=== PATIENT | male | born 1940 | race Hispanic/Latino ===

== ENCOUNTER 2017-11-06 09:07 | Inpatient (IN) | payer MEDICARE ==
[2017-11-06] MEDS ORDERED: Nitroglycerin 2% Ointment 1 INCH/1 GM Packet ONE (09:38)
--- NOTE | 2017-11-06 09:45 | RAD ---
RADIOGRAPH CHEST 1 VIEW: HISTORY: 77-year-old male with acute chest pain. FINDINGS: There is hyperinflation of the lungs, consistent with COPD. There is no evidence of air space densit y, pneumothorax, or pulmonary edema. The lateral costophrenic angles are sharp. There are sternotomy wires. There is no interval change compared to 12-27-15. IMPRESSION: 1) No acute pulmonary findings. 2) Emphysema. katina POS: [facility]
[2017-11-06 09:47] LABS: #Eosinphils 0.1 thou/uL (0.0-0.7); #Lymphocytes 1.5 thou/uL (1.20-3.40); #Monocytes 0.5 thou/uL (0.11-0.59); #Neutrophils 5.5 thou/uL (1.40-6.50); %Basophils 0.6 % (0.0-1.0); %Eosinophils 1.8 % (0.0-10.0); %Lymphocytes 19.8 % (21.0-51.0); %Monocytes 6.7 % (0.0-10.0); Hematocrit 39.3 % (42.0-52.0); Mean Platelet Volume 7.7 fL (7.4-10.4); Red Blood Cell (RBC) Count 4.27 mill/uL (4.70-6.10); White Blood Cell (WBC) Count 7.7 thou/uL (4.8-10.8)
[2017-11-06 10:07] LABS: ALT (SGPT) 11 U/L (8-55); AST (SGOT) 10 U/L (5-34); Alkaline Phosphatase 109 U/L (40-150); Anion Gap 13 mmol/L (10-20); BUN (Urea Nitrogen) 18 mg/dL (8.4-25.7); Bilirubin, Total 0.4 mg/dL (0.2-1.2); CK (CPK) 34 U/L (30-200); Calc. Creatinine Clearance 0 mL/min (70-130); Calcium 9.2 mg/dL (7.8-10.44); Carbon Dioxide 27 mmol/L (23-31); Chloride 103 mmol/L (98-107); Estimated GFR-MDRD 58; Globulin 3.4 g/dL (2.4-3.5); Protein, Total 7.1 g/dL (5.8-8.1)
[2017-11-06 10:10] LABS: Troponin I Less than 0.010 ng/mL (< 0.028)
[2017-11-06 12:47] VITALS: BMI 37.1
[2017-11-06] MEDS ORDERED: Communication Order-Pharmacy FS SCH (13:15)
[2017-11-06] MEDS ORDERED: Calcium Carbonate 500 MG ChewTAB PO PRN (13:39)
[2017-11-06] MEDS ORDERED: HumaLOG 300 UNITS/3 ML VIAL SC PRN (13:39)
[2017-11-06] MEDS ORDERED: Dextrose 5% in Water 1,000 ML IV PRN (13:39)
[2017-11-06] MEDS ORDERED: Ondansetron HCl/PF 4 MG/2 ML Vial IVP PRN (13:39)
[2017-11-06] MEDS ORDERED: Dextrose 50% Abboject 50 ML SYRINGE SLOW IVP PRN (13:39)
[2017-11-06] MEDS ORDERED: Nitroglycerin 0.4 MG TAB (25 Tab Bottle) PO PRN (13:39)
--- NOTE | 2017-11-06 14:05 | CON ---
DATE OF CONSULTATION: 11/06/2017 HISTORY OF PRESENT ILLNESS: The patient is a 77-year-old gentleman who presents for evaluation of recurrent chest discomfort. The patient has a long history of coronary artery disease. In 2016 , he underwent coronary bypass graft surgery x4. The patient has had recurrent chest discomfort. He underwent a followup catheterization in 2009 which revealed patent coronary bypass grafts. He continued to have chest discomfort. He recently underwent a stress test that revealed no evidence of ischemia. The patient presented to my office with recurrent chest pain. He states he took two nitroglycerin tablets with relief of his pain. PAST MEDICAL HISTORY: 1. Coronary artery disease. 2. Hypertension. 3. Hyperlipidemia. 4. Cerebrovascular disease. 5. GE reflux. PAST SURGICAL HISTORY: Abdominal surgery, back surgery, coronary bypass graft surgery. SOCIAL HISTORY: Nonsmoker. FAMILY HISTORY: There is no strong family history of heart disease. ALLERGIES: PENICILLIN. MEDICATIONS: Valsartan one tablet p.o. daily, Imdur 30 q.a.m., Coreg 12.5 b.i.d., aspirin 81 daily, and Lipitor 10 at bedtime. REVIEW OF SYSTEMS: Ten-point system otherwise unremarkable. No history of easy bruising or bleeding, bright red blood per rectum. PHYSICAL EXAMINATION: GENERAL: Obese gentleman in no acute distress. VITAL SIGNS: Blood pressure was 138/71, heart rate was 73. NECK: No jugular venous distention, no carotid bruits. LUNGS: Clear to auscultation. HEART: Regular rate and rhythm, normal S1, S2. ABDOMEN: Nondistended. EXTREMITIES: Showed trace edema. SKIN: Warm and dry. NEUROLOGIC: Nonfocal. VASCULAR: Radial pulses 2+. LABORATORY DATA: Sodium 139, potassium 3.9, chloride 103, bicarbonate 27, BUN 18, creatinine 1.2, troponin less than 0.01. White blood cell count 7.7, hemoglobin 12.8, hematocrit 29.3, platelets 259. EKG revealed normal sinus rhythm, nonspecific ST abnormality. IMPRESSION: 1. Recurrent chest pain. 2. History of coronary bypass surgery. 3. Hypertension. 4. Dyslipidemia. 5. Obesity. This gentleman has had recurrent chest pain. He underwent a recent stress that revealed no ischemia. Because of his persistent symptoms, I recommend a repeat catheterization to evaluate whether he has developed progressive coronary artery disease. The patient understands the risks involved of cardiac catheterization and wishes to proceed. PLAN: Proceed with cardiac catheterization. TAWANDA
--- NOTE | 2017-11-06 14:50 | HP ---
CHIEF COMPLAINT: Chest pain. HISTORY OF PRESENT ILLNESS: This is a 77-year-old pleasant gentleman who was apparently in usual sta te of health, came into the hospital because he has been having worsening of his chest pain. He says that he has had this chest pain on and off for the last couple of weeks. It is retrosternal, pressu re like and usually goes away after he takes sublingual nitro, but at this time he had the chest pain and he followed up with this. He was in Dr. Pfeiffer's office when the chest pain came and he took 2 sublingual nitroglycerin and it then resolved. Dr. Pfeiffer sent him to the emergency room for fur ther evaluation and treatment. Possible plan is going to be a cardiac catheterization. The patient denies any fever or chills. Admits to constipation, no diarrhea or dysuria. No cough or fever. PAST MEDICAL HISTORY: Coronary artery disease, diabetes, hyperlipidemia, hypertension, and depressio n. SOCIAL HISTORY: Does not smoke, drink or do recreational drugs. FAMILY HISTORY: Negative for diabetes and hypertension. PAST SURGICAL HISTORY: CABG, gallbladder surgery, appendectomy and some vague abdominal surgeries, n ot sure what. MEDICATIONS: , losartan, Risperdal, Imdur, metformin. ALLERGIES: PENICILLIN. REVIEW OF SYSTEMS: Significant for some right upper quadrant pain, chest pain, otherwise no fever, n o chills, no headache, no appetite changes. No cough, no diarrhea, dysuria, or polyuria. No memory or mood changes. No neck pain. PHYSICAL EXAMINATION: VITAL SIGNS: Blood pressure is 121/90 with a pulse of 95, afebrile, breathing comfortably on room ai r. GENERAL: The patient is lying in bed in no apparent distress. HEENT: Atraumatic and normocephalic. Pupils equally round, react to light. Extraocular movements i ntact. Mucous membranes moist. NECK: Supple. No JVD. CHEST: Breath sounds heard. There are no rales or rhonchi. HEART: S1, S2, no murmurs or gallops. ABDOMEN: Soft. Some tenderness in the right upper quadrant on pressure, the chest pain is reproduci ble as well. EXTREMITIES: No cyanosis, clubbing or edema. Distal pulses present. NEUROLOGIC: Alert, awake, oriented. No cranial deficits. No sensorimotor deficits. LABORATORY DATA: Potassium is 3.9, creatinine is 1.2, hemoglobin is 12. WBC count is 7. Chest x-ray negative. EKG showed some nonspecific ST-T wave changes. ASSESSMENT AND PLAN: 1. Unstable angina. Follow Cardiology plan, rule out acute coronary syndrome. We will put on chest pain protocol. 2. Vague right upper quadrant pain. We will do ultrasound of the abdomen and will do ultrasound of the right upper quadrant. The patient is status post cholecystectomy. 3. Constipation. We will give the patient some laxative and do a KUB. 4. Morbid obesity with a BMI of 37.2. The patient has been counseled. 5. Diabetes. Put the patient on insulin sliding scale. 6. History of coronary artery disease status post coronary artery bypass graft. 7. Hyperlipidemia, stable, appears to be stable. 8. Sequential compression devices for deep venous thrombosis prophylaxis. 9. Hypertension. We will continue home medications and optimize during this hospital stay. We will work with Cardiology in further caring for the patient.
[2017-11-06] MEDS ORDERED: Heparin 1000 UNIT/NS 500ML(OR) 1,000 ML ONE (14:51)
--- NOTE | 2017-11-06 15:22 | RAD ---
KUB: Indication: Abdominal pain. Comparison: none. FINDINGS: Bowel gas pattern is nonobstructed. There is a moderate amount of retained stool within the colon. Th ere is scattered calcifications within the abdomen and pelvis. There is multilevel spondylosis of the thoracic spine. IMPRESSION: Mild amount of retained stool. POS: [facility]
[2017-11-06] MEDS ORDERED: Midazolam HCl 2 mg/2 ml Vial ONE (15:40)
--- NOTE | 2017-11-06 16:20 | ULT ---
RIGHT UPPER QUADRANT ULTRASOUND: HISTORY: Right upper quadrant pain. FINDINGS: The gallbladder has been removed consistent with prior cholecystectomy. Common bile duct is 0.9 cm. No significant intrahepatic ductal dilatation. Liver echogenicity is somewhat coarse, evidence for nonspecific diffuse hepatic parenchymal process. No focal liver mass. Visualized pancreas and right kidney are unremarkable. IMPRESSION: Status post cholecystectomy. Common bile duct 0.9 cm. Slightly coarse diffuse liver echogenicity. POS: [facility]
[2017-11-06] MEDS ORDERED: Nitroglycerin 0.4 MG TAB (25 Tab Bottle) SL PRN (16:31)
[2017-11-06] MEDS ORDERED: traMADol HCl 50 MG TAB PO PRN (16:31)
[2017-11-06] MEDS ORDERED: Acetaminophen/Codeine 30-300mg Tablet PO PRN ×2 (16:31)
[2017-11-06] MEDS ORDERED: Sodium Chloride 0.9% 200 ML IV PRN (16:45)
[2017-11-06] MEDS ORDERED: Iopamidol 370 76% 100 ML VIAL ONE (17:09)
[2017-11-06 18:38] LABS: Troponin I Less than 0.010 ng/mL (< 0.028)
[2017-11-06] MEDS: Docusate 100 MG CAP PO SCH (20:34)
[2017-11-06] MEDS: Metoprolol Tartrate 25 MG TAB PO SCH (20:34)
[2017-11-06] MEDS: Famotidine 20 MG TAB PO SCH (20:35)
[2017-11-07] MEDS: Sodium Chloride 0.9% 1,000 ML IV SCH ×2 (04:11→08:29)
[2017-11-07] MEDS: Metoprolol Tartrate 25 MG TAB PO SCH ×2 (05:13→20:40)
[2017-11-07] MEDS: Atorvastatin Calcium 10 MG TAB PO SCH (05:14)
[2017-11-07] MEDS: Famotidine 20 MG TAB PO SCH ×2 (05:14→20:40)
[2017-11-07 06:03] LABS: Anion Gap 11 mmol/L (10-20); BUN (Urea Nitrogen) 15 mg/dL (8.4-25.7); Calc. Creatinine Clearance 105 mL/min (70-130); Calcium 8.8 mg/dL (7.8-10.44); Carbon Dioxide 23 mmol/L (23-31); Chloride 104 mmol/L (98-107); Cholesterol 108 mg/dl (< 200 Desired); Estimated GFR-MDRD 81; LDL Cholesterol, Calculated 55 mg/dL
[2017-11-07 06:48] LABS: Bilirubin Negative (Negative); Blood, Urine Negative (Negative); Glucose, Urine (Dipstick) Negative (Negative); Ketone, Urine Negative (Negative); Nitrite Negative (Negative); Protein, Urine (Dipstick) Negative (Neg-Trace); Urobilinogen 0.2 mg/dL (0.2-1.0)
[2017-11-07 06:50] LABS: Bacteria/HPF None Seen HPF (None Seen); Hyaline Casts/LPF 0-3 HYALINE CAST LPF (0-3 Hyaline); RBC/HPF 0-3 HPF (0-3); Squamous Epithelial None Seen HPF (0-3); WBC/HPF None Seen HPF (0-3)
[2017-11-07] MEDS ORDERED: Heparin 1000 UNIT/NS 500ML(OR) 1,000 ML ONE (06:50)
[2017-11-07] MEDS ORDERED: Midazolam HCl 2 mg/2 ml Vial ONE (07:38)
[2017-11-07] MEDS ORDERED: Fentanyl 100 MCG/2 ML VIAL ONE (07:38)
[2017-11-07] MEDS ORDERED: hydrALAZINE 20 MG/ML VIAL ONE (07:56)
[2017-11-07] MEDS ORDERED: Heparin 10,000 UNITS/1 ML VIAL ONE (07:56)
[2017-11-07] MEDS: Bisacodyl 10 MG SUPP PR SCH (08:27)
[2017-11-07] MEDS: Docusate 100 MG CAP PO SCH ×2 (08:27→20:39)
[2017-11-07] MEDS ORDERED: Sodium Chloride 0.9% 1,000 ML IV SCH (08:30)
[2017-11-07] MEDS ORDERED: Aspirin 325 MG TAB PO SCH (09:00)
[2017-11-07] MEDS: TICAGRELOR 90 MG TABLET PO SCH ×2 (11:49→20:44)
[2017-11-07] MEDS: Valsartan 80 MG TAB PO SCH (11:51)
--- NOTE | 2017-11-07 12:02 | PDOC.PN ---
- Subjective Encounter Start Date: 11/07/17 Encounter Start Time: 12:01 Patient seen and examined. No new complaints. No overnight events for cath today - Objective MAR Reviewed: Yes Vital Signs & Weight: Vital Signs (12 hours) Temp Pulse Resp BP BP Pulse Ox 11/07/17 11:55 96.7 F L 70 18 169/79 H 97 11/07/17 08:00 97.9 F 79 18 99 11/07/17 04:00 97.9 F 79 18 143/63 H 97 Weight Weight 238 lb 8 oz I&O: 11/06/17 11/07/17 11/08/17 06:59 06:59 06:59 Intake Total 1060 Output Total 200 Balance 860 Result Diagrams: 11/06/17 09:40 11/07/17 04:41 Additional Labs: Accuchecks 11/07/17 11/06/17 05:58 23:56 POC Glucose 137 H 144 H Phys Exam - Physical Examination Constitutional: NAD HEENT: PERRLA Neck: no JVD Respiratory: no rales Cardiovascular: no significant murmur Gastrointestinal: soft, non-tender Musculoskeletal: pulses present Neurological: normal sensation, moves all 4 limbs Psychiatric: A&O x 3 Dx/Plan (1) Unstable angina Status: Acute (2) Obesity (BMI 30-39.9) Code(s): E66.9 - OBESITY, UNSPECIFIED Status: Acute (3) HTN (hypertension) Code(s): I10 - ESSENTIAL (PRIMARY) HYPERTENSION Status: Acute (4) Diabetes mellitus Code(s): E11.9 - TYPE 2 DIABETES MELLITUS WITHOUT COMPLICATIONS Status: Acute - Plan * f/u cath results * cont current plan * f/u card plan
[2017-11-07] MEDS ORDERED: Iopamidol 370 76% 50 ML VIAL FS ONE (15:00)
[2017-11-07] MEDS ORDERED: Iopamidol 370 76% 100 ML VIAL ONE (15:00)
--- NOTE | 2017-11-07 15:55 | EKG ---
Test Reason : POST STENT Blood Pressure : / mmHG Vent. Rate : 075 BPM Atrial Rate : 075 BPM P-R Int : 158 ms QRS Dur : 078 ms QT Int : 414 ms P-R-T Axes : 076 032 057 degrees QTc Int : 462 ms Normal sinus rhythm Normal ECG When compared with ECG of 06-NOV-2017 09:10, (Unconfirmed) No significant change was found Confirmed by JOSE C ESCOBAR ([id number]) on 11/07/2017 3:55:07 PM Referred By: BRUCE Confirmed By:JOSE C ESCOBAR
[2017-11-07] MEDS ORDERED: clonazePAM 0.5 MG TAB PO SCH (21:00)
[2017-11-08 05:44] LABS: #Eosinphils 0.1 thou/uL (0.0-0.7); #Lymphocytes 1.1 thou/uL (1.20-3.40); #Monocytes 0.8 thou/uL (0.11-0.59); #Neutrophils 6.3 thou/uL (1.40-6.50); %Basophils 0.2 % (0.0-1.0); %Eosinophils 0.9 % (0.0-10.0); %Lymphocytes 12.9 % (21.0-51.0); %Monocytes 9.9 % (0.0-10.0); Hematocrit 33.1 % (42.0-52.0); Mean Platelet Volume 7.5 fL (7.4-10.4); Red Blood Cell (RBC) Count 3.65 mill/uL (4.70-6.10); White Blood Cell (WBC) Count 8.3 thou/uL (4.8-10.8)
[2017-11-08 06:08] LABS: ALT (SGPT) 10 U/L (8-55); AST (SGOT) 10 U/L (5-34); Alkaline Phosphatase 99 U/L (40-150); Anion Gap 10 mmol/L (10-20); BUN (Urea Nitrogen) 15 mg/dL (8.4-25.7); Bilirubin, Total 0.6 mg/dL (0.2-1.2); Calc. Creatinine Clearance 96 mL/min (70-130); Calcium 8.9 mg/dL (7.8-10.44); Carbon Dioxide 25 mmol/L (23-31); Chloride 105 mmol/L (98-107); Estimated GFR-MDRD 75; Protein, Total 6.4 g/dL (5.8-8.1)
[2017-11-08] MEDS ORDERED: Aspirin 81 mg Enteric Coated Tablet PO SCH (08:40)
[2017-11-08] MEDS ORDERED: Clopidogrel Bisulfate 75 MG TAB PO SCH ×2 (08:45→09:00)
[2017-11-08] MEDS: Metoprolol Tartrate 25 MG TAB PO SCH (09:42)
[2017-11-08] MEDS: Famotidine 20 MG TAB PO SCH (09:42)
[2017-11-08] MEDS: Valsartan 80 MG TAB PO SCH (09:42)
[2017-11-08] MEDS: Atorvastatin Calcium 10 MG TAB PO SCH (09:42)
[2017-11-08] MEDS: Bisacodyl 10 MG SUPP PR SCH (11:01)
[2017-11-08] MEDS: Docusate 100 MG CAP PO SCH (11:01)
--- NOTE | 2017-11-08 12:27 | EKG ---
Test Reason : Blood Pressure : / mmHG Vent. Rate : 068 BPM Atrial Rate : 068 BPM P-R Int : 154 ms QRS Dur : 080 ms QT Int : 426 ms P-R-T Axes : 068 021 062 degrees QTc Int : 452 ms Normal sinus rhythm Normal ECG When compared with ECG of 07-NOV-2017 08:33, No significant change was found Confirmed by JOSE C ESCOBAR ([id number]) on 11/08/2017 12:26:59 PM Referred By: BRUCE Confirmed By:JOSE C ESCOBAR
[2017-11-08] MEDS: cloNIDine 0.1 MG TAB PO PRN ×2 (13:59→18:03)
--- NOTE | 2017-11-08 15:24 | PDOC.PN ---
- Subjective Encounter Start Date: 11/08/17 Encounter Start Time: 15:22 Subjective: feels well. no chest pain/sob. -: s/p cardiac stenting - Objective MAR Reviewed: Yes Vital Signs & Weight: Vital Signs (12 hours) Temp Pulse Pulse Pulse Resp BP BP 11/08/17 13:59 191/84 H 11/08/17 13:03 65 11/08/17 11:29 98.1 F 65 20 11/08/17 09:18 68 80 162/77 H 11/08/17 08:00 98.1 F 69 19 11/08/17 07:42 98.1 F 69 19 11/08/17 06:24 65 11/08/17 04:00 97.9 F 71 20 BP BP BP Pulse Ox Pulse Ox Pulse Ox 11/08/17 13:59 11/08/17 13:03 191/84 H 11/08/17 11:29 158/69 H 97 11/08/17 09:18 179/86 H 99 100 11/08/17 08:00 99 11/08/17 07:42 181/90 H 99 11/08/17 06:24 172/82 H 11/08/17 04:00 100 Weight Weight 230 lb 6.4 oz I&O: 11/07/17 11/08/17 11/09/17 06:59 06:59 06:59 Intake Total 1060 3014 Output Total 200 1130 Balance 860 1884 Result Diagrams: 11/08/17 04:22 11/08/17 04:22 Additional Labs: Accuchecks 11/08/17 11/08/17 11/07/17 11:31 05:40 20:02 POC Glucose 125 H 150 H 161 H 11/07/17 17:04 POC Glucose 161 H Laboratory Tests 11/06/17 11/06/17 09:40 17:53 Troponin I Less than 0.010 Less than 0.010 Phys Exam - Physical Examination Constitutional: NAD HEENT: PERRLA, moist MMs, sclera anicteric, oral pharynx no lesions Neck: no nodes, no JVD, supple, full ROM Respiratory: no wheezing, no rales, no rhonchi, clear to auscultation bilateral Cardiovascular: RRR, no significant murmur Gastrointestinal: soft, non-tender, no distention, positive bowel sounds Musculoskeletal: no edema, pulses present Neurological: non-focal, normal sensation, moves all 4 limbs Psychiatric: normal affect, A&O x 3 Skin: no rash Dx/Plan (1) Unstable angina Status: Acute (2) Diabetes mellitus Code(s): E11.9 - TYPE 2 DIABETES MELLITUS WITHOUT COMPLICATIONS Status: Acute (3) HTN (hypertension) Code(s): I10 - ESSENTIAL (PRIMARY) HYPERTENSION Status: Acute (4) Obesity (BMI 30-39.9) Code(s): E66.9 - OBESITY, UNSPECIFIED Status: Acute - Plan s/p stenting.Plavix added.cont ASA,statin,BB,ARB -: BP still high.add prn clonidine. -: OK to DC home if BP improves. -: cardiology cleared.discused with * . Review of Systems - Review of Systems Constitutional: negative: Fever, Chills, Sweats, Weakness, Malaise, Other ENT: negative: Ear Pain, Ear Discharge, Nose Pain, Nose Discharge, Nose Congestion, Mouth Pain, Mouth Swelling, Throat Pain, Throat Swelling, Other Respiratory: negative: Cough, Dry, Shortness of Breath, Hemoptysis, SOB with Excertion, Pleuritic Pain, Sputum, Wheezing Cardiovascular: negative: Chest Pain, Palpitations, Orthopnea, Paroxysmal Noc. Dyspnea, Edema, Light Headedness, Other Gastrointestinal: negative: Nausea, Vomiting, Abdominal Pain, Diarrhea, Constipation, Melena, Hematochezia, Other Genitourinary: negative: Dysuria, Frequency, Incontinence, Hematuria, Retention , Other Musculoskeletal: negative: Neck Pain, Shoulder Pain, Arm Pain, Back Pain, Hand Pain, Leg Pain, Foot Pain, Other Neurological: negative: Weakness, Numbness, Incoordination, Change in Speech, Confusion, Seizures, Other - Medications/Allergies Allergies/Adverse Reactions: Allergies Allergy/AdvReac Type Severity Reaction Status Date / Time Penicillins Allergy Rash Verified 08/13/13 17:06 Medications: Current Medications Acetaminophen/Codeine Phosphate (Tylenol #3) 1 tab PO Q4H PRN PRN Reason: Mild Pain (1-3) Acetaminophen/Codeine Phosphate (Tylenol #3) 2 tab PO Q4H PRN PRN Reason: Moderate Pain (4-6) Aspirin (Ecotrin) 81 mg PO DAILY ADAM Last Admin: 11/08/17 09:42 Dose: 81 mg Atorvastatin Calcium (Lipitor) 10 mg PO DAILY [facility] Last Admin: 11/08/17 09:42 Dose: 10 mg Bisacodyl (Dulcolax) 10 mg MN DAILY [facility] Stop: 11/09/17 09:01 Last Admin: 11/08/17 11:01 Dose: Not Given Calcium Carbonate (Tums) 1,000 mg PO Q4H PRN PRN Reason: Heartburn or Indigestion Carvedilol (Coreg) 6.25 mg PO BID-[facility] Clonidine (Catapres) 0.1 mg PO Q4H PRN PRN Reason: SBP>160 Last Admin: 11/08/17 13:59 Dose: 0.1 mg Clopidogrel Bisulfate (Plavix) 75 mg PO DAILY [facility] Dextrose/Water (Dextrose 50%) 25 gm SLOW IVP PRN PRN PRN Reason: Hypoglycemia Docusate Sodium (Colace) 100 mg PO BID [facility] Last Admin: 11/08/17 11:01 Dose: Not Given Famotidine (Pepcid) 20 mg PO BID [facility] Last Admin: 11/08/17 09:42 Dose: 20 mg Glucagon (Glucagon) 1 mg IM PRN PRN PRN Reason: Hypoglycemia Dextrose/Water (D5w) 1,000 mls @ 0 mls/hr IV .Q0M PRN; As Directed PRN Reason: Hypoglycemia Sodium Chloride (Normal Saline 0.9%) 200 mls @ 0 mls/hr IV ONE PRN; As Directed PRN Reason: Bolus PRN SBP < 90 mm Hg Stop: 11/09/17 16:46 Insulin Human Lispro (Humalog) 0 units SC .MODERATE SLIDING SC PRN PRN Reason: Moderate Correctional Scale Isosorbide Mononitrate (Imdur Er) 30 mg PO DAILY [facility] Last Admin: 11/08/17 09:42 Dose: 30 mg Nitroglycerin (Nitrostat) 0.4 mg SL Q5MIN PRN PRN Reason: Chest Pain Ondansetron HCl (Zofran) 4 mg IVP Q6H PRN PRN Reason: Nausea/Vomiting Sodium Chloride (Flush - Normal Saline) 10 ml IVF Q12HR [facility] Last Admin: 11/08/17 09:44 Dose: 10 ml Sodium Chloride (Flush - Normal Saline) 10 ml IVF PRN PRN PRN Reason: Saline Flush Tramadol HCl (Ultram) 50 mg PO Q6H PRN PRN Reason: Moderate Pain (4-6) Valsartan (Diovan) 80 mg PO DAILY ADAM Last Admin: 11/08/17 09:42 Dose: 80 mg
[2017-11-08 15:58] VITALS: TEMP 97.8
[2017-11-08] MEDS ORDERED: Carvedilol 6.25 MG TAB PO SCH (17:00)
--- NOTE | 2017-11-09 08:52 | DIS ---
DATE OF ADMISSION: 11/06/2017 DATE OF DISCHARGE: 11/08/2017 CONDITION AT THE TIME OF DISCHARGE: Stable and improved. PRIMARY CARE PHYSICIAN: Harsh Patterson M.D. DISCHARGE DISPOSITION: Home. DISCHARGE DIAGNOSES: 1. Unstable angina, status post cardiac catheterization and stenting. 2. Diabetes mellitus. 3. Hypertension. 4. Obesity. DISCHARGE MEDICATIONS: Include metformin 1 tablet p.o. b.i.d., aspirin 81 mg daily, isosorbide monon itrate 30 mg daily, fluoxetine 1 tablet daily, Risperdal 2 tablets daily, Coreg 6.25 mg p.o. b.i.d., clonazepam 1 tablet p.o. b.i.d., Diovan 80 mg daily, clonidine 0.1 mg as needed every 4 hours for sys tolic blood pressure more than 170, Plavix 75 mg daily, and atorvastatin 10 mg daily. CONSULTATION INHOUSE: Include Cardiology, Dr. John Paul Pfeiffer. PROCEDURES IN THE HOSPITAL: Include, 1. Cardiac catheterization which showed severe left circumflex disease as well as disease in the ana norberto artery. Successful PCI to left circumflex was done with drug-eluting stent. 2. Transthoracic echocardiogram on 11/08/2017, which showed EF at 55%-60%. Normal left ventricular size. Left atrium is mildly dilated. Aortic valve leaflets is somewhat thickened. 3. Abdominal ultrasound which is negative for any CBD dilatation or intrahepatic ductal dilatation. Slightly coarse diffuse liver echogenicity seen. 4. Abdominal x-ray which has mild amount of retained stool, otherwise unremarkable for any acute rodríguez nges. HISTORY OF PRESENTING ILLNESS: Mr. Castrejon is a 77-year-old male with history of coronary art jessica disease status post CABG in the past, diabetes, dyslipidemia, hypertension, and depression, who p resented to the emergency room with complaints of chest pain. He was actually at his automotive manager's office when chest pain happened and he was sent to the Emergency Room for further evaluation. He was admitted to Medicine team for cardiac catheterization as per Dr. Pfeiffer's instructions. Please se e admission history and physical for further details. The patient underwent a right upper quadrant u ltrasound for some vague abdominal pain. HOSPITAL COURSE: The patient was seen by his automotive manager, Dr. Pfeiffer, and cardiac catheterization was done. It showed 90% stenosis on left circumflex. It also showed 100% stenosis in the LAD, 90% stenosis in proximal RCA and 100% stenosis in distal RCA. He also had 75% stenosis in graft from DELVALLE A to LAD, 70% stenosis at ramus. He underwent a successful placement of drug-eluting stent in the le ft circumflex. He was started on Plavix and was given a prescription for the same. After cardiac catheterization, he remained hemodynamically stable and asymptomatic. There was some d ifficulty controlling his blood pressure in the hospital. He was restarted on his home medications a s well as p.r.n. antihypertensives with good control of his blood pressure. At this time, I have not made any changes to his antihypertensive and I would like him to discuss this with either his primar care physician or his automotive manager. He was given prescriptions of clonidine to use as needed basis until his followup appointment with his automotive manager. He is instructed to monitor his blood pressur e. Patient and his understood the discharge planning and the need to monitor blood pressure marisela sely. Changes in medications were avoided due to avoid hypotension. The patient was seen and examined prior to discharge. Please see hospitalist progress note from the date of discharge for further details. Total time spent in the discharge 32 minutes including the [id number] interaction.
[2017-11-09] MEDS ORDERED: Clopidogrel Bisulfate 75 MG TAB PO SCH (09:00)
--- NOTE | 2017-11-09 15:36 | EKG ---
Test Reason : Blood Pressure : / mmHG Vent. Rate : 093 BPM Atrial Rate : 093 BPM P-R Int : 140 ms QRS Dur : 066 ms QT Int : 366 ms P-R-T Axes : 030 013 056 degrees QTc Int : 455 ms Sinus rhythm with marked sinus arrhythmia Nonspecific ST and T wave abnormality Abnormal ECG Confirmed by MARILEE CERNA D.O. ([id number]), tape editor JODY SALMERON ([id number]) on 11/09/2017 3:35:58 PM Referred By: Confirmed By:MARILEE CERNA D.O.
[2017-11-09 17:16] VITALS: BP 159/78
== END 2017-11-08 18:38 | disposition home or self-care (01) | DRG 247 ==
LOC: ERS 09:07 → 2SW 11:04 → OBSVTOIN 11:04 → 2NO 18:20
PROVIDERS: ADMIT Internal Medicine; ATTEND Internal Medicine
PROC: 4A023N7 Measurement of Cardiac Sampling and Pressure, Left Heart, Percutaneous Approach (ICD-10-PCS; principal; 2017-11-07)
PROC: 027034Z Dilation of Coronary Artery, One Artery with Drug-eluting Intraluminal Device, Percutaneous Approach (ICD-10-PCS; 2017-11-07)
PROC: B2111ZZ Fluoroscopy of Multiple Coronary Arteries using Low Osmolar Contrast (ICD-10-PCS; 2017-11-07)
PROC: B2151ZZ Fluoroscopy of Left Heart using Low Osmolar Contrast (ICD-10-PCS; 2017-11-07)
PROC: 4A023N7 Measurement of Cardiac Sampling and Pressure, Left Heart, Percutaneous Approach (ICD-10-PCS; 2017-11-07)
PROC: B2121ZZ Fluoroscopy of Single Coronary Artery Bypass Graft using Low Osmolar Contrast (ICD-10-PCS; 2017-11-07)
DX: I25.110 Atherosclerotic heart disease of native coronary artery with unstable angina pectoris (principal); E11.9 Type 2 diabetes mellitus without complications; E66.01 Morbid (severe) obesity due to excess calories; I10 Essential (primary) hypertension; K59.00 Constipation, unspecified; E78.5 Hyperlipidemia, unspecified; F32.9 Major depressive disorder, single episode, unspecified; Z88.0 Allergy status to penicillin; Z68.37 Body mass index [BMI] 37.0-37.9, adult; Z95.1 Presence of aortocoronary bypass graft; Z79.84 Long term (current) use of oral hypoglycemic drugs; Z79.82 Long term (current) use of aspirin; K21.9 Gastro-esophageal reflux disease without esophagitis
CPT/HCPCS: 36415; 36416; 71010; 74000; 76705; 80048; 80053; 80061; 81001; 82550; 82553; 84484; 85025; 85347; 90471; 90732; 92928; 93005; 93010; 93306; 93459; 93798; 94760; 99152; 99153; A4216; C1769; C1874; C9600; G0009; J0360; J1644; J2250; J3010

== ENCOUNTER 2017-11-22 11:26 | Emergency (ER) | payer MEDICARE ==
[2017-11-22] MEDS ORDERED: traMADol HCl 50 MG TAB ONE (12:28)
--- NOTE | 2017-11-22 13:14 | RAD ---
RIGHT ANKLE 3 VIEWS: Date: 11/22/17 HISTORY: Right ankle pain. FINDINGS/IMPRESSION: The ankle mortise is maintained. No acute fracture or dislocation is seen. POS: [facility]
== END 2017-11-22 13:20 | disposition home or self-care (01) ==
LOC: ERS 11:26
DX: M25.571 Pain in right ankle and joints of right foot (principal); E11.9 Type 2 diabetes mellitus without complications; E78.5 Hyperlipidemia, unspecified; I10 Essential (primary) hypertension; F32.9 Major depressive disorder, single episode, unspecified

== ENCOUNTER 2018-06-28 10:33 | Inpatient (IN) | payer MEDICARE ==
[2018-06-28 11:06] LABS: #Basophils 0.1 thou/uL (0.0-0.2); #Eosinphils 0.1 thou/uL (0.0-0.7); #Lymphocytes 1.4 thou/uL (1.20-3.40); #Monocytes 0.7 thou/uL (0.11-0.59); #Neutrophils 5.7 thou/uL (1.40-6.50); %Eosinophils 1.3 % (0.0-10.0); %Monocytes 8.8 % (0.0-10.0); %Neutrophils 71.9 % (42.0-75.0); Hemoglobin 12.9 g/dL (14.0-18.0); Mean Corpuscular HGB CONC 35.1 g/dL (32.0-36.0); Mean Corpuscular Hemoglobin 28.9 pg (27.0-31.0); Mean Corpuscular Volume 82.3 fL (78.0-98.0); Platelet Count 215 thou/uL (130-400); RBC Distribution Width 11.6 % (11.5-14.5); Red Blood Cell (RBC) Count 4.46 mill/uL (4.70-6.10); White Blood Cell (WBC) Count 7.9 thou/uL (4.8-10.8)
[2018-06-28 11:09] LABS: PTT 25.2 SEC (22.9-36.1)
[2018-06-28 11:10] LABS: Prothrombin Time 13.1 SEC (12.0-14.7)
[2018-06-28 11:18] LABS: ALT (SGPT) 14 U/L (8-55); AST (SGOT) 10 U/L (5-34); Albumin 3.9 g/dL (3.4-4.8); Alkaline Phosphatase 102 U/L (40-150); Anion Gap 13 mmol/L (10-20); BUN (Urea Nitrogen) 16 mg/dL (8.4-25.7); Bilirubin, Total 0.3 mg/dL (0.2-1.2); Calc. Creatinine Clearance 0 mL/min (70-130); Calcium 9.4 mg/dL (7.8-10.44); Carbon Dioxide 23 mmol/L (23-31); Chloride 106 mmol/L (98-107); Estimated GFR-MDRD Greater than 90; Globulin 3.2 g/dL (2.4-3.5); Glucose 110 mg/dL (83-110); Magnesium 1.8 mg/dL (1.6-2.6); Protein, Total 7.1 g/dL (5.8-8.1); Sodium 138 mmol/L (136-145)
[2018-06-28 11:20] LABS: CKMB 0.6 ng/mL (0-6.6); Troponin I Less than 0.010 ng/mL (< 0.028)
[2018-06-28] MEDS ORDERED: Nitroglycerin 2% Ointment 1 INCH/1 GM Packet ONE (11:23)
[2018-06-28] MEDS ORDERED: Clopidogrel Bisulfate 75 MG TAB ONE (13:20)
--- NOTE | 2018-06-28 13:31 | RAD ---
UPRIGHT PORTABLE CHEST ONE VIEW: HISTORY: A 78-year-old male with a history of chest pain and shortness of breath. COMPARISON: 11/06/2017 FINDINGS: Inspiration is somewhat less than optimal. Postop midline sternotomy. No confluent pneumonia, overt edema, or pleural effusion. IMPRESSION: No acute intrathoracic disease. Stable from prior study. POS: [facility]
[2018-06-28 14:05] LABS: Troponin I Less than 0.010 ng/mL (< 0.028)
[2018-06-28 15:34] VITALS: BMI 36.1
[2018-06-28] MEDS ORDERED: Dextrose 5% in Water 1,000 ML IV PRN (16:49)
[2018-06-28] MEDS ORDERED: HumaLOG 300 UNITS/3 ML VIAL SC PRN ×2 (16:49)
[2018-06-28] MEDS ORDERED: Nitroglycerin 0.4 MG TAB (25 Tab Bottle) PO PRN (16:49)
[2018-06-28] MEDS ORDERED: Dextrose 50% Abboject 50 ML SYRINGE SLOW IVP PRN (16:49)
[2018-06-28 17:25] LABS: Troponin I Less than 0.010 ng/mL (< 0.028)
[2018-06-28] MEDS ORDERED: Isosorbide Dinitrate 20 MG TAB PO SCH (21:00)
[2018-06-28] MEDS: risperiDONE 1 MG TAB PO SCH (21:13)
[2018-06-28] MEDS: Isosorbide Dinitrate 5 MG TAB PO SCH (21:13)
[2018-06-28] MEDS: Carvedilol 3.125 MG TAB PO SCH (21:13)
[2018-06-28] MEDS: clonazePAM 0.5 MG TAB PO SCH (21:13)
--- NOTE | 2018-06-29 00:29 | HP ---
DATE OF SERVICE: 06/28/2018 PRIMARY CARE PHYSICIAN: Dr. Calvin in [place] CHIEF COMPLAINT: Difficulty breathing. HISTORY OF PRESENT ILLNESS: This is a 78-year-old male with history of coronary artery disease, CABG and stents; diabetes; hypertension; dyslipidemia; who presents to the emergency room due to difficulty breathing. History is obtained from the patient and his through the use of a video manager career. They report that over the past 3-4 days with walking short distances, the patient is easily out of breath. He has home oxygen that he uses for these episodes. He also has associated left-sided chest pain that radiates to his left shoulder that he describes as strong and cramping. This has occurred 2 or more times per day over the past 3 days. The symptoms are precipitated by exertion and relieved with rest and oxygen. He has nitroglycerin at home, but has not used. Today, the chest pain was worse and rated 10/10 in intensity, lasted about 5 minutes, followed by a sensation of needles in his chest. Because of this, he presented to the emergency room. His last cardiac evaluation was here in the hospital with catheterization and stent placement back in 11/2017. Per review of the report, it shows stent in the left circumflex; however, residual disease in multiple arteries. In the emergency room, the patient received Plavix 75 mg, aspirin 324 mg and 1 inch of nitro paste and Hospitalist called for admission. ALLERGIES TO MEDICATIONS: PENICILLIN. CURRENT MEDICATIONS: Reconciled with the bottles. 1. Clonazepam 0.5 mg b.i.d. 2. Tylenol as needed. 3. Aspirin 81 mg daily. 4. Coenzyme Q10 of 200 mg daily. 5. Clopidogrel 75 mg daily. 6. Risperidone 0.5 mg 1 tablet in the morning, 2 tablets at night. 7. Metformin 500 mg b.i.d. 8. Fluoxetine 40 mg daily. 9. Carvedilol 3.125 mg b.i.d. 10. Cholesterol injection that he takes twice a month. PAST MEDICAL HISTORY: 1. Coronary artery disease with history of coronary artery bypass graft and last stent placed in 11/2017. 2. Diabetes, type 2. 3. Dyslipidemia. 4. Hypertension. 5. Depression. 6. Obstructive sleep apnea, uses oxygen at home as needed. 7. Chronic leg pain. 8. Chronic neck pain. PAST SURGICAL HISTORY: 1. CABG. 2. Cardiac stent in 11/2017. 3. Cholecystectomy. 4. Appendectomy. 5. Hand surgery. 6. Back surgery x2. SOCIAL HISTORY: He denies any current tobacco or alcohol use, lives with his , Camila, who is his surrogate decision maker. He is a FULL CODE. FAMILY HISTORY: Negative for diabetes or high blood pressure. REVIEW OF SYSTEMS: Positive for some tongue swelling that he felt earlier today that has since resolved, urinary incontinence has been going on the past 2 months. Negative for nausea, vomiting, abdominal pain. Also, positive for headaches since the nitro paste was placed. All remaining review of systems are reviewed and negative. PHYSICAL EXAMINATION: VITAL SIGNS: Blood pressure 139/71, temperature 97.8, pulse 70, respirations 20 , saturations 96% on room air. GENERAL: Awake, alert, responsive, in no apparent distress, able to speak in regular sentences. HEENT: His pupils are equal, round, and reactive to light. Oral mucosa is pink and moist. NECK: Supple. Tenderness to palpation in the submental area. No palpable defects. LYMPH NODES: No palpable anterior, cervical or supraclavicular lymphadenopathy. LUNGS: Clear to auscultation bilateral. HEART: Normal S1, S2, regular rate and rhythm, no audible murmurs. ABDOMEN: Soft with present bowel sounds. EXTREMITIES: No clubbing, cyanosis, or edema. VASCULAR: 2+ dorsalis pedis pulses bilateral. NEUROLOGIC: No focal defects. PSYCHIATRIC: Linear, logical, goal directed thought process. LABORATORY DATA: Labs are reviewed. 1. CBC: 7.9, 12.9, 36.7, 215. 2. Renal panel: 138, 4.0, 106, 23, 16, 0.82, 110. 3. LFTs negative. 4. Troponin x2 negative. 5. BNP 84. IMAGING: EKG personally reviewed, sinus rhythm, normal axis, normal intervals, except for a QT corrected of 445. No ST changes. Chest x-ray no acute process. Discharge summary reviewed from Nov 08, 2017 - cath report shows 90% stenosis on left circumflex, 100% stenosis of LAD, 90% stenosis in proximal RCA, 100% stenosis of distal RCA. A drug-eluting stent was placed in the left circumflex. IMPRESSION: 1. Unstable angina/what sounds like severe ischemic heart disease in a patient with known coronary artery disease, history of coronary artery bypass grafting and stents. 2. Diabetes mellitus, appears controlled. 3. Hypertension. 4. Dyslipidemia. 5. Depression. 6. Obstructive sleep apnea. PLAN: 1. Observation status in the hospital. 2. Monitor on telemetry, obtain echocardiogram and request Cardiology consult. 3. We will start a nitrate and remove the nitro paste with the goal of improving his symptoms. There is a potential for this to interact with his home meds (risperidone) and cause hypotension so will start with the lowest dose. Continue the aspirin, Plavix, beta tara. He is on a home cholesterol injection. 4. Holding the metformin in case catheterization or other contrast study is needed. 5. We will continue his mood medications of risperidone and fluoxetine. 6. Needs follow up for the urinary symptoms with his primary care provider after discharge. 7. Anticipated length of stay is 24 hours, will be based on the patient tolerating medication changes and any other recommendations from cardiology. 8. Deep venous thrombosis prophylaxis with pneumatic compression devices. 9. Gastrointestinal prophylaxis not indicated. 10. Code status is FULL and surrogate decision maker is patient's 11. I reviewed the plan of care through the manager career with the patient and his . No questions or further needs at end of evaluation. 12. The patient does remain at high risk given age, comorbidities, and current presentation. JEANNED
[2018-06-29] MEDS: Acetaminophen 325 MG TAB PO PRN (04:32)
[2018-06-29] MEDS: Clopidogrel Bisulfate 75 MG TAB PO SCH (08:57)
[2018-06-29] MEDS: FLUoxetine HCl 20 MG CAP PO SCH (08:57)
[2018-06-29] MEDS: clonazePAM 0.5 MG TAB PO SCH ×2 (08:57→21:39)
[2018-06-29] MEDS: risperiDONE 0.25 MG TAB PO SCH (08:57)
[2018-06-29] MEDS: Aspirin 81 mg Enteric Coated Tablet PO SCH (08:57)
[2018-06-29] MEDS ORDERED: Regadenoson 0.4 MG/5 ML SYRINGE ONE (11:06)
--- NOTE | 2018-06-29 11:11 | CON ---
DATE OF CONSULTATION: 06/29/2018 REASON FOR CONSULTATION: Chest pain and history of coronary artery disease, status post stent placem ent and bypass surgery. PRIMARY ASSISTANT PRODUCTION MANAGER: Dr. John Paul Pfeiffer. HISTORY OF PRESENT ILLNESS: Mr. Castrejon is a very pleasant 78-year-old gentleman with history of coron jm artery disease, status post bypass surgery. His last angio was performed in 11/2017. His ELIAS t o the LAD is patent, saphenous vein graft to the right coronary artery patent with a jump graft to th e RPL and a saphenous vein graft to D1 patent. No mention of a saphenous vein graft to circumflex ar fatoumata. He had significant stenosis present and underwent successful stent placement by Dr. Eh rowell. He states he is doing well. No recurrence of the chest pain. He had two episodes recently. They we re described as severe, substernal, with associated shortness of breath. He also describes a sharp c hest pain noted with deep inspiration. No nausea, vomiting or other associated symptoms present. PAST MEDICAL HISTORY: 1. Coronary artery disease, status post bypass surgery. 2. PCI. 3. Hyperlipidemia. 4. Diabetes. 5. Hypertension. 6. Obstructive sleep apnea. PAST SURGICAL HISTORY: Cholecystectomy, appendectomy, hand surgery, back surgery. SOCIAL HISTORY: No current tobacco or alcohol use. REVIEW OF SYSTEMS: Ten-point review of systems reviewed as above, otherwise negative. CURRENT HOME MEDICATIONS: Include carvedilol, Plavix, aspirin, Risperdal, metformin, and fluoxetine. PHYSICAL EXAMINATION: VITAL SIGNS: Blood pressure 178/71, pulse 74, temperature 97.4. HEENT: Atraumatic, normocephalic. Oral mucosa is moist. NECK: Supple. CARDIOVASCULAR: S1, S2 heard. Rate and rhythm regular. RESPIRATORY: Clear to auscultation. GASTROINTESTINAL: Abdomen is soft. MUSCULOSKELETAL: No tenderness, no edema. DERMATOLOGIC: No skin rash. NEUROLOGIC: Alert and awake and oriented x3. No focal neurologic deficits. Moving all the extremit ies. PSYCHIATRIC: Mood and affect normal. PERTINENT LABORATORY DATA: CK and troponin negative. Hemoglobin 12.9. IMAGING: EKG showed normal sinus rhythm with nonspecific ST-T wave changes. IMPRESSION: 1. Chest pain. 2. Coronary artery disease. 3. Status post bypass surgery. 4. Status post stent placement in 11/2017. RECOMMENDATIONS: Mr. Castrejon's symptoms could certainly suggest angina. His CK and troponins are nega tive. EKG negative. Given his previous coronary history, we would recommend a noninvasive stress st udy. Currently, the camera is being repaired. Further recommendations pending the above.
--- NOTE | 2018-06-29 12:24 | PDOC.PN ---
- Subjective Encounter Start Date: 06/29/18 Encounter Start Time: 12:23 Mr. Castrejon was seen today in follow-up of chest pain. He is feeling better today , but notes some pain in his chest when he takes a deep breath, and also when he was examined earlier today. - Objective Resuscitation Status: Resuscitation Status FULL:Full Resuscitation MAR Reviewed: Yes Vital Signs & Weight: Vital Signs (12 hours) Temp Pulse Resp BP BP Pulse Ox 06/29/18 11:59 98.0 F 78 12 151/66 H 97 06/29/18 10:55 99 06/29/18 08:55 97.8 F 83 12 06/29/18 07:42 97.8 F 83 12 134/81 95 06/29/18 04:18 97.4 F L 74 14 178/71 H 96 Weight Weight 221 lb 11.2 oz I&O: 06/28/18 06/29/18 06/30/18 06:59 06:59 06:59 Intake Total 660 Balance 660 Result Diagrams: 06/28/18 10:50 06/28/18 10:50 Additional Labs: Accuchecks 06/29/18 06/28/18 04:29 21:12 POC Glucose 116 H 183 H Phys Exam - Physical Examination HEENT: PERRLA Respiratory: no wheezing, no rales, no rhonchi, clear to auscultation bilateral Cardiovascular: RRR, no significant murmur, no rub Gastrointestinal: soft, non-tender, positive bowel sounds Musculoskeletal: no edema Dx/Plan (1) Chest pain Code(s): R07.9 - CHEST PAIN, UNSPECIFIED Status: Acute (2) Diabetes mellitus Code(s): E11.9 - TYPE 2 DIABETES MELLITUS WITHOUT COMPLICATIONS Status: Acute (3) HTN (hypertension) Code(s): I10 - ESSENTIAL (PRIMARY) HYPERTENSION Status: Acute (4) Obesity (BMI 30-39.9) Code(s): E66.9 - OBESITY, UNSPECIFIED Status: Acute - Plan * Chest pain- Cardiology recommendations noted- will order a stress test * HTN - blood pressure has been slightly labile- will monitor * DM- blood glucose is stable .
[2018-06-29] MEDS: Carvedilol 3.125 MG TAB PO SCH ×2 (17:36→21:39)
--- NOTE | 2018-06-29 18:27 | NM ---
MYOCARDIAL PERFUSION SCAN WITH SPECT IMAGING: History: Chest pain. Technique: Examination was performed using 27 mCi Technetium 99M Sestamibi on stress and 9.7 mCi Tech netium 99M Sestamibi on the resting images. FINDINGS: This shows a normal distribution of the radial pharmaceutical. No signs of ischemia or scar. Wall Motion: There is symmetric contractility to the ventricle. LVEF: The calculated left ventricular ejection fraction is 78%. IMPRESSION: Unremarkable myocardial perfusion scan. POS: [facility]
[2018-06-29] MEDS: Isosorbide Dinitrate 5 MG TAB PO SCH ×2 (18:28→21:39)
[2018-06-29] MEDS: risperiDONE 1 MG TAB PO SCH (21:39)
[2018-06-30] MEDS: Isosorbide Dinitrate 5 MG TAB PO SCH (07:54)
[2018-06-30] MEDS: Acetaminophen 325 MG TAB PO PRN ×2 (07:54→21:25)
[2018-06-30] MEDS: Clopidogrel Bisulfate 75 MG TAB PO SCH (07:54)
[2018-06-30] MEDS: Carvedilol 3.125 MG TAB PO SCH ×2 (07:54→21:25)
[2018-06-30] MEDS: risperiDONE 0.25 MG TAB PO SCH (07:55)
[2018-06-30] MEDS: clonazePAM 0.5 MG TAB PO SCH ×2 (07:55→21:25)
[2018-06-30] MEDS: FLUoxetine HCl 20 MG CAP PO SCH (07:55)
[2018-06-30] MEDS: Aspirin 81 mg Enteric Coated Tablet PO SCH (07:55)
[2018-06-30] MEDS ORDERED: Communication Order-Pharmacy FS SCH (10:00)
--- NOTE | 2018-06-30 11:08 | PDOC.PN ---
- Subjective Encounter Start Date: 06/30/18 Encounter Start Time: 11:06 Mr. Castrejon was seen today in follow-up. He continues to have some chest pain off and on. Yesterday it was more when he takes in a deep breath, and also some was reproducible on exam. - Objective Resuscitation Status: Resuscitation Status FULL:Full Resuscitation MAR Reviewed: Yes Vital Signs & Weight: Vital Signs (12 hours) Temp Pulse Resp BP BP BP Pulse Ox 06/30/18 08:00 97.8 F 94 18 06/30/18 07:26 97.8 F 94 18 149/77 H 96 06/30/18 04:33 97.7 F 66 16 151/74 H 94 L 06/30/18 00:00 98.1 F 65 16 154/72 H 96 Weight Weight 200 lb 6.4 oz I&O: 06/29/18 06/30/18 07/01/18 06:59 06:59 06:59 Intake Total 660 1080 Balance 660 1080 Result Diagrams: 06/28/18 10:50 06/28/18 10:50 Additional Labs: Accuchecks 06/30/18 06/29/18 06/29/18 05:37 20:48 17:44 POC Glucose 124 H 142 H 213 H 06/29/18 10:41 POC Glucose 158 H Phys Exam - Physical Examination HEENT: PERRLA Respiratory: no wheezing, no rales, no rhonchi, clear to auscultation bilateral Cardiovascular: RRR, no significant murmur Gastrointestinal: soft, non-tender, positive bowel sounds Musculoskeletal: no edema Dx/Plan (1) Chest pain Code(s): R07.9 - CHEST PAIN, UNSPECIFIED Status: Acute (2) Diabetes mellitus Code(s): E11.9 - TYPE 2 DIABETES MELLITUS WITHOUT COMPLICATIONS Status: Acute (3) HTN (hypertension) Code(s): I10 - ESSENTIAL (PRIMARY) HYPERTENSION Status: Acute (4) Obesity (BMI 30-39.9) Code(s): E66.9 - OBESITY, UNSPECIFIED Status: Acute - Plan * Chest pain- ? etiology- Cath results from November 2017 were noted * Plan is for repeat Cath today * HTN- blood pressure is slightly elevated- will monitor * DM- blood gluocose is stable * Further recommendations depending on cath results.
[2018-06-30] MEDS ORDERED: Iopamidol 370 76% 100 ML VIAL ONE (11:13)
[2018-06-30] MEDS ORDERED: Lidocaine 1% (PF) 30 ML VIAL ONE (12:28)
[2018-06-30] MEDS ORDERED: Midazolam HCl 2 mg/2 ml Vial ONE (14:07)
[2018-06-30] MEDS: risperiDONE 1 MG TAB PO SCH (21:25)
[2018-07-01 08:12] VITALS: BP 156/74; TEMP 98.1
[2018-07-01] MEDS: clonazePAM 0.5 MG TAB PO SCH (08:55)
[2018-07-01] MEDS: Clopidogrel Bisulfate 75 MG TAB PO SCH (08:55)
[2018-07-01] MEDS: FLUoxetine HCl 20 MG CAP PO SCH (08:56)
[2018-07-01] MEDS: risperiDONE 0.25 MG TAB PO SCH (08:56)
[2018-07-01] MEDS: Aspirin 81 mg Enteric Coated Tablet PO SCH (08:56)
[2018-07-01] MEDS: Carvedilol 3.125 MG TAB PO SCH (08:56)
--- NOTE | 2018-07-01 10:25 | PDOC.PN ---
- Subjective Encounter Start Date: 07/01/18 Encounter Start Time: 10:24 Mr. Castrejon was seen today in follow-up. He does not have any complaints today. He denies chest pain or difficulty breathing. - Objective MAR Reviewed: Yes Vital Signs & Weight: Vital Signs (12 hours) Temp Pulse Resp BP BP Pulse Ox 07/01/18 08:00 98.1 F 69 16 07/01/18 07:25 98.1 F 69 16 156/74 H 95 07/01/18 04:15 97.9 F 67 16 141/65 H 93 L Weight Weight 219 lb 1.6 oz I&O: 06/30/18 07/01/18 07/02/18 06:59 06:59 06:59 Intake Total 360 Output Total 150 Balance 210 Result Diagrams: 06/28/18 10:50 06/28/18 10:50 Additional Labs: Accuchecks 07/01/18 06/30/18 06/30/18 06:01 20:48 16:34 POC Glucose 178 H 221 H 127 H Phys Exam - Physical Examination HEENT: PERRLA Respiratory: no wheezing, no rales, no rhonchi, clear to auscultation bilateral Cardiovascular: RRR, no significant murmur, no rub Gastrointestinal: soft, non-tender, positive bowel sounds Musculoskeletal: no edema Dx/Plan (1) Chest pain Code(s): R07.9 - CHEST PAIN, UNSPECIFIED Status: Acute (2) Diabetes mellitus Code(s): E11.9 - TYPE 2 DIABETES MELLITUS WITHOUT COMPLICATIONS Status: Acute (3) HTN (hypertension) Code(s): I10 - ESSENTIAL (PRIMARY) HYPERTENSION Status: Acute (4) Obesity (BMI 30-39.9) Code(s): E66.9 - OBESITY, UNSPECIFIED Status: Acute - Plan * Chest pain- Cardiac cath results noted * Imdur has been added * Stable for discharge home..
--- NOTE | 2018-07-01 11:43 | DIS ---
PRIMARY CARE PHYSICIAN: Harsh Patterson M.D. DATE OF ADMISSION: 06/28/2018 DATE OF DISCHARGE: 07/01/2018 DISCHARGE DISPOSITION: Home. PRIMARY DISCHARGE DIAGNOSES: 1. Chest pain. 2. History of coronary artery disease. 3. Unstable angina. 4. Diabetes mellitus, type 2. 5. Dyslipidemia. 6. Hypertension. 7. History of obstructive sleep apnea with as needed oxygen. DISCHARGE MEDICATIONS: Include CoQ10 at 200 mg daily, risperidone 0.5 mg daily, Risperdal 2 mg at be dtime, metformin 500 mg twice daily, Imdur extended release 60 mg daily was added, fluoxetine 40 mg d aily, Plavix 75 mg daily, clonazepam 1 mg twice a day, Coreg 3.125 mg twice daily, and aspirin 81 mg daily. PROCEDURES DONE DURING ADMISSION: The patient had a nuclear stress test, which was unremarkable. He also had a cardiac catheterization which showed patent ELIAS to the LAD, and circ and patent saphenou s vein grafts to the right coronary. CODE STATUS: FULL CODE. ALLERGIES: PENICILLINS. HOSPITAL COURSE: Mr. Castrejon is a pleasant 78-year-old gentleman, who presented to the emergency room complaining of shortness of breath. He was also having some chest pain as well. The pain was more o r less atypical in presentation. He was placed in observation. He was ruled out. He had a nuclear stress test, which was negative. The patient's and the patient were still concerned about the o ngoing chest pain with this reason, the cardiac catheterization was performed. It was negative showi ng patent grafts. The patient also had an echocardiogram, in which his ejection fraction was estimat ed at 55% to 60%. There was some E to A flow reversal noted suggestive of diastolic dysfunction and moderately thickened aortic valve and the patient was placed on Imdur to help with his anginal sympto ms and was able to be discharged home. He is to follow up with his primary care physician on his usu ally scheduled appointment, which is in about 2 weeks and also with Dr. Pfeiffer as instructed.
== END 2018-07-01 11:25 | disposition home or self-care (01) | DRG 287 ==
LOC: SCSER 10:33 → 2SW 15:18 → OBSVTOIN 06-30 14:51
PROVIDERS: ADMIT Family Medicine; ATTEND Family Medicine
PROC: 4A023N7 Measurement of Cardiac Sampling and Pressure, Left Heart, Percutaneous Approach (ICD-10-PCS; principal; 2018-06-30)
PROC: B211YZZ Fluoroscopy of Multiple Coronary Arteries using Other Contrast (ICD-10-PCS; 2018-06-30)
PROC: B215YZZ Fluoroscopy of Left Heart using Other Contrast (ICD-10-PCS; 2018-06-30)
PROC: B213YZZ Fluoroscopy of Multiple Coronary Artery Bypass Grafts using Other Contrast (ICD-10-PCS; 2018-06-30)
DX: I25.110 Atherosclerotic heart disease of native coronary artery with unstable angina pectoris (principal); E11.9 Type 2 diabetes mellitus without complications; E78.5 Hyperlipidemia, unspecified; I10 Essential (primary) hypertension; G47.33 Obstructive sleep apnea (adult) (pediatric); Z95.1 Presence of aortocoronary bypass graft; E66.9 Obesity, unspecified; Z68.34 Body mass index [BMI] 34.0-34.9, adult; Z95.5 Presence of coronary angioplasty implant and graft; F32.9 Major depressive disorder, single episode, unspecified; G89.29 Other chronic pain
CPT/HCPCS: 36415; 36416; 71045; 78452; 80053; 82553; 83735; 83880; 84484; 85025; 85610; 85730; 93005; 93017; 93306; 93459; 94760; 99152; 99153; A4216; A9500; C1769; J1644; J2001; J2250; J2785

== ENCOUNTER 2019-02-01 15:18 | Observation (INO) | payer MEDICARE ==
[2019-02-01 15:46] LABS: #Basophils 0.1 thou/uL (0.0-0.2); #Eosinphils 0.1 thou/uL (0.0-0.7); #Lymphocytes 1.3 thou/uL (1.20-3.40); #Monocytes 0.7 thou/uL (0.11-0.59); #Neutrophils 6.6 thou/uL (1.40-6.50); %Basophils 0.6 % (0.0-1.0); %Eosinophils 1.5 % (0.0-10.0); %Monocytes 7.8 % (0.0-10.0); %Neutrophils 75.2 % (42.0-75.0); Hemoglobin 12.6 g/dL (14.0-18.0); Mean Corpuscular HGB CONC 32.8 g/dL (32.0-36.0); Mean Corpuscular Hemoglobin 30.4 pg (27.0-31.0); Mean Corpuscular Volume 92.7 fL (78.0-98.0); Platelet Count 211 thou/uL (130-400); RBC Distribution Width 12.6 % (11.5-14.5); Red Blood Cell (RBC) Count 4.16 mill/uL (4.70-6.10); White Blood Cell (WBC) Count 8.8 thou/uL (4.8-10.8)
[2019-02-01 16:08] LABS: ALT (SGPT) 11 U/L (8-55); AST (SGOT) 12 U/L (5-34); Albumin 3.8 g/dL (3.4-4.8); Alkaline Phosphatase 94 U/L (40-150); Anion Gap 13 mmol/L (10-20); BUN (Urea Nitrogen) 15 mg/dL (8.4-25.7); Bilirubin, Total 0.2 mg/dL (0.2-1.2); CK (CPK) 35 U/L (30-200); Calc. Creatinine Clearance 0 mL/min (70-130); Calcium 9.3 mg/dL (7.8-10.44); Carbon Dioxide 25 mmol/L (23-31); Chloride 105 mmol/L (98-107); Estimated GFR-MDRD 72; Globulin 3.3 g/dL (2.4-3.5); Glucose 177 mg/dL (83-110); Lipase 20 U/L (8-78); Potassium 4.4 mmol/L (3.5-5.1); Protein, Total 7.1 g/dL (5.8-8.1); Sodium 139 mmol/L (136-145)
--- NOTE | 2019-02-01 16:20 | RAD ---
AP VIEW CHEST: 02/01/2019 HISTORY: Chest pain. COMPARISON: 06/28/2018 FINDINGS: AP view chest demonstrates sternotomy wires seen. Mild pulmonary vascular congestion is seen. There is minimal blunting of the left costophrenic angle, compatible with a tiny left-sided pleural effusi on or some left pleural scar. No other acute intrathoracic abnormalities seen. IMPRESSION: Mild pulmonary vascular congestion; otherwise, unremarkable anterior-posterior view chest. POS: [facility]
--- NOTE | 2019-02-01 16:49 | PDOC.FPRHP ---
- History of Present Illness Chief Complaint: Chest pain History of Present Illness: This is a 78 yo male with a pmh of CAD s/p CABG 10 years ago and stent 1 year ago, DM2, HTN, HLD, ANDERS who presents to the ed with a cc of chest pain. He states that the pain started this morning at about noon. He states that the pain felt like someone was squeezing his chest with radiation to his left chest. He states he was watching TV when the pain started. He reports associated SOB but denies N/V, abdominal, or sweating. She tried 3 nitro tablets without relief. He states that this pain was different from the pains she has had before. ED Course: none - Allergies/Adverse Reactions Allergies Allergy/AdvReac Type Severity Reaction Status Date / Time Penicillins Allergy Rash Verified 02/01/19 19:13 - Home Medications Medication Instructions Recorded Confirmed Type FLUoxetine HCl [Fluoxetine HCl] 1 tab PO DAILY 11/06/17 02/01/19 History metFORMIN HCl 1 tab PO BID 11/06/17 02/01/19 History risperiDONE [RisperDAL] 2 tab PO HS 11/06/17 02/01/19 History Clopidogrel Bisulfate [Plavix] 75 mg PO DAILY #90 tab 11/08/17 02/01/19 Rx Aspirin [Aspirin EC] 81 mg PO DAILY 06/28/18 02/01/19 History Carvedilol [Coreg] 6.25 mg PO BID 06/28/18 02/01/19 History Ubidecarenone [Co Q-10] 200 mg PO DAILY 06/28/18 02/01/19 History risperiDONE [RisperDAL] 0.5 mg PO DAILY 06/28/18 02/01/19 History busPIRone HCl [Buspirone HCl] 7.5 mg PO BID 02/01/19 02/01/19 History - History PMHx: CAD s/p CABG 10 years ago and 1 stent 1 year ago, DM2 reported A1C 6.2, sleep apnea PSHx: CABG, stent, cholecystectomy, appendectomy, hernia repair FHx: Noncontributory Social: Denies JUANCARLOS - Review of Systems General: denies: fever/chills, weight/appetite/sleep changes, night sweats, fatigue Eyes: denies: eye pain, vision changes ENT: denies: nasal congestion, rhinorrhea Respiratory: reports: shortness of breath, exercise intolerance. denies: cough , congestion Cardiovascular: reports: chest pain. denies: palpitation, edema, paroxysmal nocturnal dyspnea Gastrointestinal: denies: nausea, vomiting, diarrhea, constipation, abdominal pain Skin: denies: rashes, lesions Musculoskeletal: denies: pain, tenderness Neurological: denies: numbness, syncope Psychological: denies: anxiety, depression - Vital signs BP: 137/78 HR: 73 RR: 16 Tmax: 98.0 Pox: 95% on ra Wt: 100 kg - Physical Exam Constitutional: NAD, awake, alert and oriented, well developed HEENT: normocephalic and atraumatic, PERRLA, EOMI, grossly normal vision, grossly normal hearing, MMM Neck: supple, FROM, trachea midline, no JVD Chest: no-tender to palpation, no lesions Heart: RRR, normal S1/S2, pulses present, other (2/6 systolic murmur) Lungs: CTAB, no respiratory distress, good air movement, no wheezing Abdomen: soft, non-tender, bowel sounds present, no masses/distention Musculoskeletal: normal structure, normal tone, ROM grossly normal Neurological: CN II-XII intact Skin: capillary refill <2 seconds Heme/Lymphatic: no unusual bruising or bleeding, no purpura Psychiatric: normal mood and affect, good judgment and insight FMR H&P: Results - Labs Result Diagrams: 02/01/19 15:38 02/01/19 15:38 Lab results: WBC 8.8 thou/uL (4.8-10.8) 02/01/19 15:38 Hgb 12.6 g/dL (14.0-18.0) L 02/01/19 15:38 Hct 38.6 % (42.0-52.0) L 02/01/19 15:38 MCV 92.7 fL (78.0-98.0) 02/01/19 15:38 Plt Count 211 thou/uL (130-400) 02/01/19 15:38 Neutrophils % 75.2 % (42.0-75.0) H 02/01/19 15:38 Sodium 139 mmol/L (136-145) 02/01/19 15:38 Potassium 4.4 mmol/L (3.5-5.1) 02/01/19 15:38 Chloride 105 mmol/L (98-107) 02/01/19 15:38 Carbon Dioxide 25 mmol/L (23-31) 02/01/19 15:38 BUN 15 mg/dL (8.4-25.7) 02/01/19 15:38 Creatinine 1.01 mg/dL (0.7-1.3) 02/01/19 15:38 Glucose 177 mg/dL (83-110) H 02/01/19 15:38 Calcium 9.3 mg/dL (7.8-10.44) 02/01/19 15:38 Total Bilirubin 0.2 mg/dL (0.2-1.2) 02/01/19 15:38 AST 12 U/L (5-34) 02/01/19 15:38 ALT 11 U/L (8-55) 02/01/19 15:38 Alkaline Phosphatase 94 U/L (40-150) 02/01/19 15:38 Creatine Kinase 35 U/L (30-200) 02/01/19 15:38 B-Natriuretic Peptide 101.7 pg/mL (0-100) H 02/01/19 15:38 Serum Total Protein 7.1 g/dL (5.8-8.1) 02/01/19 15:38 Albumin 3.8 g/dL (3.4-4.8) 02/01/19 15:38 Lipase 20 U/L (8-78) 02/01/19 15:38 - EKG Interpretation EKG: NSR, 75 bpm - Radiology Interpretation Chest x-ray Status: report reviewed by me (mild pulmonary congestion, no acute changes) FMR H&P: A/P - Problem List (1) ANDERS (obstructive sleep apnea) Current Visit: Yes Status: Acute Code(s): G47.33 - OBSTRUCTIVE SLEEP APNEA ( ADULT) (PEDIATRIC) (2) Chest pain Current Visit: No Status: Acute Code(s): R07.9 - CHEST PAIN, UNSPECIFIED (3) Diabetes mellitus Current Visit: No Status: Acute Code(s): E11.9 - TYPE 2 DIABETES MELLITUS WITHOUT COMPLICATIONS (4) HTN (hypertension) Current Visit: No Status: Acute Code(s): I10 - ESSENTIAL (PRIMARY) HYPERTENSION (5) Obesity (BMI 30-39.9) Current Visit: No Status: Acute Code(s): E66.9 - OBESITY, UNSPECIFIED - Plan This is a 78 yo male with a pmh of CAD s/p CABG 10 years ago and stent 1 year ago, DM2, HTN, HLD, ANDERS Chest pain likely unstable angina -Admit to tele obs -Troponin neg x1, trend x2 -EKG NSR, no ST changes -PRN nitro/morphine -NPO after midnight -mIVF after midnight -Pending Nuclear stress test -Heart score 5 -Consult cardio if abnormal stress test -Consider echo cardiogram with pulmonary congestion and heart disease DM2 -Continue home metformin HTN -Hold carvedilol CAD -continue clopidorel -Pt had too much trouble with statin in past, consider other cholesterol lowering medication Dementia -Continue home meds ANDERS -Aware Code: Full Prophylaxis: SCDs Family: at bedside Disposition: home in 1-2 days FMR H&P: Upper Level - Pertinent history José Castrejon is a 78 year old M with a PMH of CAD s/p CABG (10 yrs ago) and stent placement (06/2018), DM2, HTN, HLD, ANDERS who presents to the ED with acute onset of chest pain that started 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 States that he took 3 nitro, which improved the pain. He was relaxing, watching tv when the pain started, described it as crushing, squeezing substernal pressure. Pain was associated with nausea and dyspnea. Denies diaphoresis. Denies any recent fever, chills, LE edema, palpitations. Patient experiences about 3 episodes of chest pain every month over the last few months but he states that this pain is worse today. His Government Minister is Dr. Pfeiffer. His last nuclear med stress test was 06/2018 and was normal. He took 3 nitro prior to EMS arriving at home and he took 1 aspirin in the EMS. No active symptoms. PMH: HTN, DM2, ANDERS, CAD, HLD PSH: CABG X4 2009, Stent 2018, Cholecystectomy, Hernia Repair Appendectomy Allergies: Penicillins Meds: See above Social: Denies smoking, alcohol, drug use ROS: 12 point review of systems negative unless otherwise stated in HPI PE: HEENT: AT/NC, EOMI, PERRLA, MMMs Neck: No JVD, FROM CV: RRR no murmurs, gallops, rubs Resp: Lungs CTAB, no wheezes, rales, rhonchi Abd: ND/NT, normoactive BSs MSK: FROM, no TTP, 5/5 strength in UEs and LEs Neuro: No focal deficits, CNII-XII intact, A&OX3 Psych: Alert and oriented Ext: No cyanosis or edema - Pertinent findings Laboratory Tests 02/01/19 02/01/19 02/01/19 15:38 15:38 15:38 WBC 8.8 Hgb 12.6 L Hct 38.6 L Plt Count 211 Sodium 139 Potassium 4.4 Chloride 105 Carbon Dioxide 25 Anion Gap 13 BUN 15 Creatinine 1.01 Estimated GFR (MDRD) 72 Glucose 177 H Calcium 9.3 Total Bilirubin 0.2 AST 12 ALT 11 Alkaline Phosphatase 94 Creatine Kinase 35 Troponin I B-Natriuretic Peptide 101.7 H Serum Total Protein 7.1 Albumin 3.8 Globulin 3.3 Albumin/Globulin Ratio 1.2 Lipase 20 02/01/19 15:38 WBC Hgb Hct Plt Count Sodium Potassium Chloride Carbon Dioxide Anion Gap BUN Creatinine Estimated GFR (MDRD) Glucose Calcium Total Bilirubin AST ALT Alkaline Phosphatase Creatine Kinase Troponin I Less than 0.010 B-Natriuretic Peptide Serum Total Protein Albumin Globulin Albumin/Globulin Ratio Lipase - Plan Date/Time: 02/01/19 160 I, Zachariah England MD, have evaluated this patient and agree with findings/plan as outlined by international trade manager resident. Pertinent changes/additions are listed here. 1) Chest pain: concern for unstable angina - Substernal pressure, relieved by nitro, associated dyspnea, HEART score of 5 , currently asymptomatic - Admit to tele obs - Initial Troponin neg, and no EKG changes, CXR showed mild pulm congestion, otherwise negative - Continue to trend troponins - Hold Beta Gerda and NPO at midnight in preparation for nuclear med stress test in AM - Morphine and nitro as needed 2) DM2 - Continue home metformin - Accuchecks 3) HTN -Hold carvedilol, resume s/p stress test 4) CAD - continue clopidorel - has not tolerated statins in the past due to muscular side effects 5) Dementia - Continue home meds 6) ANDERS - Monitor pulse ox overnight Addendum - Attending - Attending Attestation Date/Time: 02/01/192042 I personally evaluated the patient and discussed the management with Dr. Leon. I agree with the History, Examination, Assessment and Plan documented above with any addition or exceptions noted below. The patient has a history of cad s/p cabg 10 years ago who presented with chest pain radiating to left side that was not relieved with 3 nitroglycerin. Pt's chest pain has now resolved. Will trend cardiac enzymes. Plan for stress test tomorrow.
[2019-02-01] MEDS ORDERED: Nitroglycerin 0.4 MG TAB (25 Tab Bottle) SL PRN (19:09)
[2019-02-01] MEDS ORDERED: Acetaminophen 325 MG TAB PO PRN (19:09)
[2019-02-01] MEDS ORDERED: Morphine 4 MG/ML VIAL SLOW IVP PRN (19:09)
[2019-02-01] MEDS ORDERED: Ondansetron ODT 4 MG TAB PO PRN (19:09)
[2019-02-01] MEDS ORDERED: Ondansetron PF 4 MG/2 ML Vial IVP PRN (19:09)
[2019-02-01 19:13] VITALS: BMI 34.6
[2019-02-01] MEDS ORDERED: Aspirin 325 MG TAB PO SCH (19:30)
[2019-02-01 19:35] LABS: Troponin I Less than 0.010 ng/mL (< 0.028)
[2019-02-01] MEDS ORDERED: hydrALAZINE 20 MG/ML VIAL SLOW IVP PRN (20:23)
[2019-02-01] MEDS ORDERED: risperiDONE 1 MG TAB PO SCH (21:00)
[2019-02-01] MEDS: busPIRone HCl 5 MG TAB PO SCH (21:07)
[2019-02-01 22:15] LABS: Troponin I Less than 0.010 ng/mL (< 0.028)
[2019-02-01] MEDS ORDERED: Sodium Chloride 0.9% 1,000 ML IV SCH (23:00)
--- NOTE | 2019-02-02 05:43 | PDOC.FM ---
- Subjective Subjective: Mr. Castrejon denies current chest pain or SOB. He reports some milk R low back pain. Overnight had episode of chest pain, was given nitro. EKG repeat had no acute changes. BP dropped d/t nitro. - Objective MAR Reviewed: Yes Vital Signs & Weight: Vital Signs (12 hours) Temp Pulse Resp BP BP Pulse Ox 02/02/19 04:10 97.9 F 66 18 168/76 H 98 02/01/19 23:49 98.6 F 68 16 171/75 H 98 02/01/19 21:26 72 20 145/65 H 02/01/19 21:21 74 18 96/50 L 02/01/19 21:07 67 18 155/71 H 98 02/01/19 20:12 65 187/88 H 02/01/19 19:14 98 F 68 18 187/83 H 99 Weight Weight 100.244 kg I&O: 01/31/19 02/01/19 02/02/19 06:59 06:59 06:59 Intake Total 500 Output Total 525 Balance -25 Result Diagrams: 02/01/19 15:38 02/01/19 15:38 Phys Exam - Physical Examination Constitutional: NAD Respiratory: clear to auscultation bilateral Cardiovascular: RRR, no significant murmur Gastrointestinal: soft, non-tender, positive bowel sounds Neurological: non-focal Psychiatric: normal affect Skin: normal turgor Dx/Plan (1) Unstable angina Status: Acute (2) Chest pain Code(s): R07.9 - CHEST PAIN, UNSPECIFIED Status: Acute (3) Diabetes mellitus Code(s): E11.9 - TYPE 2 DIABETES MELLITUS WITHOUT COMPLICATIONS Status: Acute (4) HTN (hypertension) Code(s): I10 - ESSENTIAL (PRIMARY) HYPERTENSION Status: Acute (5) ANDERS (obstructive sleep apnea) Code(s): G47.33 - OBSTRUCTIVE SLEEP APNEA (ADULT) (PEDIATRIC) Status: Acute - Plan Plan: 1) Chest pain: concern for unstable angina - Substernal pressure, relieved by nitro, associated dyspnea, HEART score of 5 , currently asymptomatic - No EKG changes, CXR showed mild pulm congestion - Troponins x3 neg - Had negative cath and stress 06/2018. Stress test was ordered. Will hold off for right now pending cardiology recs. - Pending cardiology consult today. - Morphine and nitro prn 2) DM2 - Continue home metformin - Accuchecks 3) HTN - Hold carvedilol, resume s/p stress test 4) CAD s/p CABG and stent - on clopidogrel at home - has not tolerated statin in the past due to muscular side effects 5) Dementia - Continue home meds 6) ANDERS - Monitor pulse ox overnight Dispo: pending cardiology consult and possible need for further workup Addendum - Attending - Attending Attestation Date/Time: 02/02/19 [id number] I personally evaluated the patient and discussed the management with Dr. Scott. I agree with the History, Examination, Assessment and Plan documented above with any addition or exceptions noted below. Patient had chest pain overnight. Patient has had both a stress and a cath since June 2018. Will hold off on stress test and consult cardiology.
[2019-02-02] MEDS: busPIRone HCl 5 MG TAB PO SCH (08:51)
[2019-02-02] MEDS ORDERED: risperiDONE 0.25 MG TAB PO SCH (09:00)
[2019-02-02] MEDS ORDERED: Clopidogrel Bisulfate 75 MG TAB PO SCH (09:00)
[2019-02-02] MEDS ORDERED: Aspirin 81 mg Enteric Coated Tablet PO SCH (09:00)
[2019-02-02] MEDS ORDERED: FLUoxetine HCl 20 MG CAP PO SCH (09:00)
[2019-02-02] MEDS ORDERED: Carvedilol 6.25 MG TAB PO SCH ×3 (13:00→17:00)
[2019-02-02 15:30] VITALS: BP 120/57
[2019-02-02 15:58] VITALS: TEMP 98.2
--- NOTE | 2019-02-02 17:59 | CON ---
DATE OF CONSULTATION: HISTORY OF PRESENT ILLNESS: A 78-year-old gentleman with a history of coronary artery disease, who presents with recurrent chest discomfort. The patient has a previous history of coronary artery bypass graft surgery x4. The patient has been admitted on multiple occasions with recurrent chest pain. Most recently, he underwent a stress test in June of 2018. He was found to have no evidence of ischemia. Because of his persistent chest pain, he underwent a repeat cardiac catheterization. He was found to have patent coronary artery bypass grafts and the patient was continued on medical therapy. The patient states that he has been out of his Imdur. He presented with substernal chest discomfort. He states his discomfort was left- sided. He took three nitroglycerin without resolution of his pain. The discomfort lasted for several hours and he eventually came to the emergency room. The patient denies having any present chest discomfort. PAST MEDICAL HISTORY: 1. Coronary artery disease. 2. Hypertension. 3. Dyslipidemia. 4. History of cerebrovascular disease. 5. GE reflux. 6. Diabetes. PAST SURGICAL HISTORY: Coronary artery bypass graft surgery, wrist surgery, shoulder surgery, disk surgery, cholecystectomy, appendectomy. ALLERGIES: PENICILLIN. MEDICATIONS: See nursing list. PHYSICAL EXAMINATION: GENERAL: This is an obese gentleman, in no acute distress with a blood pressure of 183/88. NECK: Showed no jugular venous distention. LUNGS: Clear to auscultation. HEART: Regular rate and rhythm. Normal S1 and S2 with a 2/6 systolic murmur. ABDOMEN: Distended. EXTREMITIES: Showed no edema. VASCULAR: Radial pulses 2+. LABORATORY DATA: Sodium 139, potassium 4.4, chloride 105, bicarbonate 25, BUN 15, creatinine 1.0, glucose 177. Troponin less than 0.01. White blood cell count is 8.8, hemoglobin 12.6, hematocrit 38.6, and platelets are 211. His EKG revealed normal sinus rhythm, normal ECG. IMPRESSION: 1. Chest pain. 2. Coronary artery disease. 3. History of coronary artery bypass surgery. 4. Hypertension. 5. Dyslipidemia. 6. Diabetes mellitus. 7. Obesity. This gentleman presents with recurrent chest pain. Cardiac enzymes are unremarkable. There is no evidence of ischemia. He underwent a recent catheterization, which revealed no progressive coronary artery disease. We would recommend the patient restart his Imdur and increase the dose of his Coreg. We will follow this patient with you through his hospitalization. Job ID: [id number] MTDD
[2019-02-02] MEDS ORDERED: metFORMIN 500 MG TAB PO SCH ×2 (21:00)
--- NOTE | 2019-02-03 08:16 | DIS ---
DATE OF ADMISSION: 02/01/2019 DATE OF DISCHARGE: 02/02/2019 RESIDENT: Qian Scott DO ADMITTING ATTENDING: Paolo Garvey MD DISCHARGE ATTENDING: Sheri Diaz MD CONSULT: Cardiology, Dr. Pfeiffer. PROCEDURES: None. PRIMARY DIAGNOSIS: Chest pain likely secondary to unstable angina. SECONDARY DIAGNOSES: Type 2 diabetes, hypertension, coronary artery disease status post coronary artery bypass grafting and stent, dementia, obstructive sleep apnea. DISCHARGE MEDICATIONS: 1. Risperidone 0.5 mg two tabs p.o. at bedtime. 2. Fluoxetine 40 mg one tab p.o. daily. 3. Metformin 500 mg one tab p.o. b.i.d. 4. Clopidogrel 75 mg p.o. daily. 5. Aspirin 81 mg p.o. daily. 6. Risperidone 0.5 mg p.o. daily. 7. CoQ10 of 200 mg p.o. daily. 8. Buspirone 7.5 mg p.o. b.i.d. 9. Carvedilol 12.5 mg p.o. b.i.d. 10. Imdur 60 mg p.o. daily. DISCONTINUED MEDICATIONS: Carvedilol 6.25 mg p.o. b.i.d. HISTORY OF PRESENT ILLNESS: This is a 78-year-old male with past medical history of coronary artery disease, presented with chief complaint of chest pain that started the day of admission. He took 3 nitro tablets at home with no relief and came to the emergency department. The patient was admitted for chest pain, likely due to unstable angina. Troponins were trended and negative. EKG showed no acute changes. HEART score of 5. The patient received nitro as needed for chest pain overnight, which did alleviate pain. Cardiology was consulted and considering a negative cath and stress test that was performed in June of 2018, it was decided to not proceed with further workup. Cardiology recommended increasing dose of Coreg, as well as adding Imdur. Otherwise, the patient's home medications were continued. The patient is unable to take statin due to muscular side effects in the past. At the time of discharge, the patient did not have any chest pain. DISPOSITION: Stable. DISCHARGE INSTRUCTIONS: 1. Location: Home. 2. Diet: Consisting carb and heart healthy. 3. Activity: As tolerated. 4. Followup: Follow up with PCP in 1 week. Job ID: [id number]
--- NOTE | 2019-02-03 15:39 | EKG ---
Test Reason : STAT CP Blood Pressure : / mmHG Vent. Rate : 077 BPM Atrial Rate : 077 BPM P-R Int : 140 ms QRS Dur : 070 ms QT Int : 400 ms P-R-T Axes : 057 016 064 degrees QTc Int : 452 ms Normal sinus rhythm Normal ECG Confirmed by MENDOZA THOMASON ([id number]) on 02/03/2019 3:39:21 PM Referred By: Vania HIGGINS Confirmed By:MENDOZA THOMASON
== END 2019-02-02 16:58 | disposition home or self-care (01) ==
LOC: ERS 15:18 → 2SW 16:14
PROVIDERS: ADMIT Family Medicine; ATTEND Family Medicine
DX: R07.2 Precordial pain (principal); E11.9 Type 2 diabetes mellitus without complications; I25.10 Atherosclerotic heart disease of native coronary artery without angina pectoris; I10 Essential (primary) hypertension; F03.90 Unspecified dementia, unspecified severity, without behavioral disturbance, psychotic disturbance, mood disturbance, and anxiety; G47.33 Obstructive sleep apnea (adult) (pediatric); K21.9 Gastro-esophageal reflux disease without esophagitis; E66.9 Obesity, unspecified; Z68.34 Body mass index [BMI] 34.0-34.9, adult; Z79.84 Long term (current) use of oral hypoglycemic drugs; Z79.82 Long term (current) use of aspirin; Z79.899 Other long term (current) drug therapy; Z88.0 Allergy status to penicillin; Z95.1 Presence of aortocoronary bypass graft; Z95.5 Presence of coronary angioplasty implant and graft
CPT/HCPCS: 71045; 80053; 82550; 83690; 83880; 84484 ×2; 85025; 93005; 94760 ×2; 99285; G0378 ×2; 36415; 93010; J0360

== ENCOUNTER 2019-03-17 11:19 | Emergency (ER) | payer MEDICARE ==
[2019-03-17 11:48] LABS: #Monocytes 0.7 thou/uL (0.11-0.59); #Neutrophils 8.3 thou/uL (1.40-6.50); %Basophils 0.3 % (0.0-1.0); %Eosinophils 0.4 % (0.0-10.0); %Lymphocytes 9.8 % (21.0-51.0); %Monocytes 6.8 % (0.0-10.0); %Neutrophils 82.8 % (42.0-75.0); Hemoglobin 12.7 g/dL (14.0-18.0); Mean Corpuscular HGB CONC 32.5 g/dL (32.0-36.0); Mean Corpuscular Hemoglobin 29.7 pg (27.0-31.0); Mean Corpuscular Volume 91.5 fL (78.0-98.0); Mean Platelet Volume 7.4 fL (7.4-10.4); Platelet Count 231 thou/uL (130-400); RBC Distribution Width 12.3 % (11.5-14.5); Red Blood Cell (RBC) Count 4.29 mill/uL (4.70-6.10)
[2019-03-17 12:19] LABS: ALT (SGPT) 10 U/L (8-55); AST (SGOT) 10 U/L (5-34); Albumin 3.9 g/dL (3.4-4.8); Alkaline Phosphatase 95 U/L (40-150); Anion Gap 15 mmol/L (10-20); BUN (Urea Nitrogen) 17 mg/dL (8.4-25.7); Bilirubin, Total 0.5 mg/dL (0.2-1.2); Calc. Creatinine Clearance 0 mL/min (70-130); Calcium 9.5 mg/dL (7.8-10.44); Carbon Dioxide 24 mmol/L (23-31); Chloride 105 mmol/L (98-107); Estimated GFR-MDRD 56; Globulin 2.6 g/dL (2.4-3.5); Glucose 120 mg/dL (83-110); Potassium 4.6 mmol/L (3.5-5.1); Protein, Total 6.5 g/dL (5.8-8.1); Sodium 139 mmol/L (136-145)
--- NOTE | 2019-03-17 12:24 | RAD ---
SINGLE VIEW OF THE CHEST: 03/17/19 COMPARISON: 02/01/19 HISTORY: Sharp chest pain in the midline that began this morning. FINDINGS: Single view of the chest shows a normal sized cardiomediastinal silhouette. The patient is status pos t sternotomy. There is no evidence of consolidation, mass, or pleural effusion. Scarring is seen in t he left costophrenic angle. IMPRESSION: No evidence of acute cardiopulmonary disease. POS: [facility]
[2019-03-17] MEDS ORDERED: Lorazepam 1 MG TAB ONE (12:43)
[2019-03-17 14:55] LABS: Troponin I Less than 0.010 ng/mL (< 0.028)
== END 2019-03-17 15:18 | disposition home or self-care (01) ==
LOC: ERS 11:19
DX: R07.2 Precordial pain (principal); E11.9 Type 2 diabetes mellitus without complications; E78.5 Hyperlipidemia, unspecified; I10 Essential (primary) hypertension; G47.30 Sleep apnea, unspecified; F32.9 Major depressive disorder, single episode, unspecified; F41.9 Anxiety disorder, unspecified; Z79.899 Other long term (current) drug therapy; Z79.82 Long term (current) use of aspirin; Z79.84 Long term (current) use of oral hypoglycemic drugs
CPT/HCPCS: 36415; 71045; 80053; 84484; 85025; 93005

== ENCOUNTER 2020-05-01 10:10 | Observation (INO) | payer MEDICARE ==
[2020-05-01] MEDS ORDERED: Morphine 4 MG/ML VIAL ONE (10:49)
[2020-05-01 11:09] LABS: #Eosinphils 0.1 thou/uL (0.0-0.7); #Lymphocytes 1.1 thou/uL (1.20-3.40); #Monocytes 0.4 thou/uL (0.11-0.59); #Neutrophils 6.3 thou/uL (1.40-6.50); %Basophils 0.4 % (0.0-1.0); %Eosinophils 0.8 % (0.0-10.0); %Lymphocytes 13.9 % (21.0-51.0); %Monocytes 5.4 % (0.0-10.0); %Neutrophils 79.5 % (42.0-75.0); Hemoglobin 12.1 g/dL (14.0-18.0); Mean Corpuscular HGB CONC 33.5 g/dL (32.0-36.0); Mean Corpuscular Hemoglobin 30.6 pg (27.0-31.0); Mean Corpuscular Volume 91.1 fL (78.0-98.0); Platelet Count 245 thou/uL (130-400); RBC Distribution Width 12.6 % (11.5-14.5); Red Blood Cell (RBC) Count 3.96 mill/uL (4.70-6.10)
[2020-05-01 11:29] LABS: ALT (SGPT) 9 U/L (8-55); AST (SGOT) 10 U/L (5-34); Albumin 3.6 g/dL (3.4-4.8); Alkaline Phosphatase 109 U/L (40-110); Anion Gap 12 mmol/L (10-20); BUN (Urea Nitrogen) 19 mg/dL (8.4-25.7); Bilirubin, Total 0.4 mg/dL (0.2-1.2); CK (CPK) 32 U/L (30-200); Calc. Creatinine Clearance 0 mL/min (70-130); Calcium 8.8 mg/dL (7.8-10.44); Carbon Dioxide 24 mmol/L (23-31); Chloride 106 mmol/L (98-107); Estimated GFR-MDRD 78; Globulin 3.3 g/dL (2.4-3.5); Glucose 168 mg/dL (83-110); Lipase 14 U/L (8-78); Potassium 3.9 mmol/L (3.5-5.1); Protein, Total 6.9 g/dL (5.8-8.1); Sodium 138 mmol/L (136-145)
--- NOTE | 2020-05-01 11:48 | RAD ---
PORTABLE CHEST 1 VIEW: Date: 05/01/2020 Time: 1036 hours HISTORY: Left-sided chest pain, coronary artery disease, CABG, stents, diabetes, hypertension. FINDINGS: Comparison with 03/17/2019. Changes of median sternotomy are again seen. The heart size is borderline, but stable. Scarring in th e left costophrenic angle is again noted. No focal areas of consolidation, pneumothoraces, andrez pulm onary edema, or pleural effusions are identified. IMPRESSION: No acute process. POS: [facility]
[2020-05-01 14:35] LABS: Troponin I 0.012 ng/mL (< 0.028)
[2020-05-01] MEDS ORDERED: Nitroglycerin 0.4 MG TAB (25 Tab Bottle) SL PRN ×2 (15:51→19:10)
[2020-05-01 15:55] VITALS: BMI 33.0
[2020-05-01] MEDS ORDERED: Morphine 4 MG/ML VIAL SLOW IVP SCH (16:00)
[2020-05-01 17:40] LABS: Troponin I Less than 0.010 ng/mL (< 0.028)
[2020-05-01] MEDS ORDERED: Lorazepam 0.5 MG TAB PO PRN (19:10)
[2020-05-01] MEDS ORDERED: Dextrose 5% in Water 1,000 ML IV PRN (19:11)
[2020-05-01] MEDS ORDERED: Nitroglycerin 0.4 MG TAB (25 Tab Bottle) PO PRN (19:11)
[2020-05-01] MEDS ORDERED: Morphine 2 MG/ML SYRINGE SLOW IVP PRN (19:11)
[2020-05-01] MEDS ORDERED: HumaLOG 300 UNITS/3 ML VIAL SC PRN (19:11)
[2020-05-01] MEDS ORDERED: Dextrose 50% Abboject 50 ML SYRINGE SLOW IVP PRN (19:11)
--- NOTE | 2020-05-01 19:43 | HP ---
PRIMARY CARE PROVIDER: Dr. Kennedy Calvin in [place], [place]. CHIEF COMPLAINT: Chest pain. HISTORY OF PRESENT ILLNESS: Mr. Castrejon is a pleasant 80-year-old gentleman, who was seen at [facility] on May 01, 2020. He reports that over the last couple of weeks he has had chest pain. He describes it as left-sided, radiating to the back, sharp, currently 4/10, no known aggravating or relieving factors. He reports recurrence of the chest pain today morning and therefore came to the emergency room. He reports that the chest pain is accompanied by lightheadedness, shortness of breath, and diaphoresis. He denies any nausea. He denies any cough, fevers, or chills. He was seen by his primary care provider and was started on methotrexate for probable arthritis. He reports minimal relief. REVIEW OF SYSTEMS: All systems were reviewed and found to be negative except for the pertinent positives mentioned above. PAST MEDICAL HISTORY: Coronary artery disease, status post coronary artery bypass graft and PCI with stent; diabetes mellitus, type 2; obstructive sleep apnea syndrome. PAST SURGICAL HISTORY: Coronary artery bypass graft 11 years ago and PCI with stent 2 years ago, cholecystectomy, appendectomy, and hernia repair. SOCIAL HISTORY: The patient denies tobacco use, alcohol use, or recreational drug use. FAMILY HISTORY: Heart disease in sister and mother. CODE STATUS: I discussed his code status. He is full code. ALLERGIES: PENICILLIN. CURRENT MEDICATIONS: 1. Nitroglycerin p.r.n. 2. Methotrexate 7.5 mg every week. 3. Norvasc 10 mg daily. 4. Aspirin 162 mg daily. 5. Coreg 6.25 mg 2 times a day. 6. Fluoxetine 20 mg daily. 7. Lorazepam 0.25 mg 2 times a day as needed. 8. Metformin 500 mg 2 times a day. 9. Zyprexa 5 mg at bedtime. PHYSICAL EXAMINATION: GENERAL: Mr. Castrejon is awake and alert, not in acute distress. VITAL SIGNS: Blood pressure is 144/72, pulse 73, respiratory rate 16, and oxygen saturation 98% on room air. He is afebrile. EYES: No scleral icterus. No conjunctival pallor. EARS, NOSE, AND THROAT: Moist mucosal membranes. No oropharyngeal erythema or exudates. NECK: Supple and nontender. Trachea is midline. RESPIRATORY: Accessory muscles of breathing are not active. Chest wall movements are symmetric bilaterally. Lungs are clear to auscultation without wheeze, rhonchi, or crepitations. CARDIOVASCULAR: S1 and S2 are heard, regular. Peripheral pulses are palpable. He has reproducible tenderness over the left side of his chest wall. NEUROLOGIC: Cranial nerves 2 through 12 are intact. ABDOMEN: Soft and nontender. Bowel sounds are heard. MUSCULOSKELETAL: Power is 5/5 in all 4 extremities. He has reproducible left chest wall tenderness. SKIN: No rashes. LYMPHATIC: No cervical lymphadenopathy. PSYCHIATRIC: Normal mood and normal affect. The patient is oriented to person, place, and time. BODY HABITUS: He is obese with a BMI of 33. LABORATORY STUDIES: Mr. Castrejon's labs and investigations were reviewed. I reviewed his chest x-ray, which does not show any pulmonary infiltrates. I also reviewed his electrocardiogram, which shows normal sinus rhythm and no ST changes to suggest an acute coronary syndrome. He has normocytic anemia with hemoglobin 12.1, normal white count, normal platelet count, unremarkable comprehensive metabolic profile, and troponin I negative x2. ASSESSMENT AND PLAN: Mr. Castrejon is a pleasant 80-year-old gentleman, who was seen at [facility] on May 01, 2020. His problem list includes: 1. Chest pain: Most likely secondary to musculoskeletal etiology because of reproducible nature of the pain. However, given his underlying cardiac disease, I will arrange for a stress test. Further management depending on outcome of the stress test. He will be monitored on telemetry. 2. Diabetes mellitus, type 2: I will start him on Accu-Cheks and insulin sliding scale. I will continue metformin. 3. Hypertension: Continue home medications, monitor vital signs and titrate antihypertensives as needed. 4. Depression: Mild, stable, continue home medications. Many thanks for allowing me to participate in your patient's care. Please feel free to contact me with any questions or concerns. LEVEL OF RISK: High. LEVEL OF COMPLEXITY: High. Job ID: [id number]
[2020-05-01] MEDS: metFORMIN 500 MG TAB PO SCH (20:10)
[2020-05-01] MEDS ORDERED: OLANZapine 5 MG TAB PO SCH (21:00)
[2020-05-02 08:17] VITALS: TEMP 98.5
[2020-05-02] MEDS: metFORMIN 500 MG TAB PO SCH (08:21)
[2020-05-02] MEDS: Carvedilol 6.25 MG TAB PO SCH ×2 (08:21→15:47)
[2020-05-02] MEDS ORDERED: FLUoxetine HCl 20 MG CAP PO SCH (09:00)
[2020-05-02] MEDS ORDERED: Aspirin 81 mg Enteric Coated Tablet PO SCH (09:00)
[2020-05-02] MEDS ORDERED: Amlodipine 10 MG TAB PO SCH (09:00)
[2020-05-02] MEDS ORDERED: Regadenoson 0.4 MG/5 ML SYRINGE ONE (09:04)
[2020-05-02] MEDS ORDERED: Ketorolac Tromethamine 30 MG/ML VIAL IVP SCH (09:15)
[2020-05-02] MEDS: Ibuprofen 600 MG TAB PO SCH ×3 (11:38→15:47)
--- NOTE | 2020-05-02 11:58 | CON ---
DATE OF CONSULTATION: HISTORY OF PRESENT ILLNESS: The patient is a 80-year-old gentleman who presents with left-sided chest discomfort. The patient has a long history of coronary artery disease. He is status post coronary artery bypass graft surgery. The patient was seen in 11/2017 with recurrent chest pain. He was found to have patent coronary artery bypass grafts. He subsequently underwent PTCA and stent placement in the left circumflex artery. The patient re-presented in 06/2018. He once again had a patent ELIAS to the LAD, a saphenous vein to right coronary artery with a jump graft to the PLV and diagonal branch. The patient subsequently has been on medical therapy. He underwent repeat catheterization in 06/2018 and was found to have patent grafts. The patient has been on medical therapy. He was in his usual state of health, and a few weeks ago, he started developing left-sided chest discomfort. He reports this as a persistent discomfort in the past few days. It is clearly worse when he takes a deep breath. The patient states this has been continuous for the past few days. PAST MEDICAL HISTORY: 1. Coronary artery disease. 2. Hypertension. 3. Dyslipidemia. 4. Cerebrovascular disease. 5. GE reflux. 6. Diabetes mellitus. PAST SURGICAL HISTORY: 1. Coronary artery bypass surgery. 2. Wrist surgery. 3. Shoulder surgery. 4. Appendectomy. SOCIAL HISTORY: Nonsmoker. ALLERGIES: PENICILLIN. MEDICATIONS: 1. Aspirin 162 daily. 2. Coreg 6.25 b.i.d. 3. Prozac 20 daily. 4. Metformin one tablet b.i.d. 5. Norvasc 10 daily. 6. Methotrexate. 7. Zyprexa 5 mg nightly. REVIEW OF SYSTEMS: Ten-point system otherwise unremarkable. No history of bright red blood per rectum. The patient denies having any fevers or chills. PHYSICAL EXAMINATION: GENERAL: Obese gentleman, in mild distress. VITAL SIGNS: Blood pressure 145/65. NECK: No jugular venous distention. LUNGS: Clear to auscultation. HEART: Regular rate and rhythm with a normal S1 and S2. He also had a 1/6 systolic murmur. ABDOMEN: Distended. EXTREMITIES: Trace edema. VASCULAR: Radial pulses are 2+. LABORATORY DATA: Troponin was 0.012. White blood cell count 8.0, hemoglobin 12.1, hematocrit 36.1, and his platelets are 245. Sodium 138, potassium 3.9, chloride 106, bicarbonate 24, BUN 12, and creatinine 0.93. EKG revealed normal sinus rhythm with a nonspecific T-wave abnormality. IMPRESSION: 1. Chest pain, primarily atypical features. 2. History of coronary artery bypass surgery. 3. History of percutaneous transluminal coronary angioplasty and stent placement in the left circumflex. 4. Hypertension. 5. Dyslipidemia. 6. Diabetes mellitus. 7. Anxiety. PLAN: This gentleman presents with recurrent chest pain. The patient's chest pain is most suggestive of pleurisy or musculoskeletal discomfort. The patient will be treated with Toradol. The patient is scheduled for stress test. We would recommend medical therapy. We will follow this patient with you through his hospitalization. Job ID: [id number] [facility]
--- NOTE | 2020-05-02 15:00 | NM ---
CARDIAC SPECT: HISTORY: A 80-year-old male with chest pain, coronary artery disease, CABG, stent, and diabetes. TECHNIQUE: A myocardial perfusion scan was performed using the single-isotope 1-day protocol with Technetium 99m sestamibi. 11 mCi were injected intravenously for the rest exam followed by 27 mCi for the stress s tudy. Pharmacologic stress with LexiScan was monitored and interpreted by GARY Suero. FINDINGS: Homogeneous tracer distribution was seen in the myocardial segments on stress and rest images without fixed ore reversible defects. GATED SPECT LVEF: 73%. WALL MOTION EXAM: Normal. IMPRESSION: Normal myocardial perfusion scan. POS: [facility]
[2020-05-02] MEDS ORDERED: Ibuprofen 600 MG TAB PO SCH (17:00)
[2020-05-02 17:24] VITALS: BP 108/56
[2020-05-02] MEDS ORDERED: Icosapent Ethyl 1 GM CAPSULE PO SCH (21:00)
--- NOTE | 2020-05-03 03:06 | DIS ---
DATE OF ADMISSION: 05/01/2020 DATE OF DISCHARGE: 05/02/2020 PRIMARY CARE PROVIDER: Dr. Kennedy Calvin in [place], [place]. DISCHARGE DIAGNOSES: 1. Chest pain. 2. Chest pain, most likely secondary to musculoskeletal etiology. CONDITION OF THE PATIENT ON THE DAY OF DISCHARGE: Stable. I assessed Mr. Castrejon on the day of discharge. He denies any fevers or chills. Vital signs are stable. S1 and S2 are heard, regular. Lungs are clear to auscultation. CONSULTATIONS DURING THIS HOSPITALIZATION: Cardiology, Dr. Pfeiffer. HOSPITAL COURSE: Mr. Castrejon is a pleasant 80-year-old gentleman, who was admitted to [facility] on May 01, 2020, for left-sided chest pain secondary to musculoskeletal etiology. Given his significant cardiac history, he underwent nuclear stress test. It was normal. Left ventricular ejection fraction was 73%. He was seen by Cardiology Service and started on ibuprofen. DISCHARGE MEDICATIONS: He has been started on ibuprofen 600 mg three times a day for 1 week and Protonix 40 mg daily for 1 week. Otherwise, no change was made to his pre-admission home medications, which include: 1. Methotrexate 7.5 mg every week. 2. Amlodipine 10 mg daily. 3. Aspirin 162 mg daily. 4. Coreg 6.25 mg two times a day. 5. Fluoxetine 20 mg daily. 6. Metformin 500 mg two times a day. 7. Zyprexa 5 mg at bedtime. 8. Ibuprofen 600 mg three times a day. 9. Vascepa 2 g two times a day. 10. Protonix 40 mg daily for 1 week. POST-ACUTE CARE FOLLOWUP: With primary care provider in [address] Pfeiffer in 2 weeks. DIET: Diabetic and heart healthy. ACTIVITY: No restrictions. DISCHARGE DESTINATION: Home. Many thanks for allowing me to participate in your patient's care. Please feel free to contact me with any questions or concerns. Job ID: [id number]
--- NOTE | 2020-05-07 15:05 | EKG ---
Test Reason : Blood Pressure : / mmHG Vent. Rate : 072 BPM Atrial Rate : 072 BPM P-R Int : 148 ms QRS Dur : 076 ms QT Int : 386 ms P-R-T Axes : 067 047 087 degrees QTc Int : 422 ms Normal sinus rhythm with sinus arrhythmia Normal ECG Confirmed by ILENE ROJAS, PREM ([id number]), film editor MARY LOU LIMA ([id number]) on 05/07/2020 3:04:43 PM Referred By: Confirmed By:PREM ODOM MD
[2020-05-13] MEDS ORDERED: Methotrexate Sodium 2.5 MG TAB PO SCH (09:00)
== END 2020-05-02 17:24 | disposition home or self-care (01) ==
LOC: ERS 10:10 → 2NO 15:54
PROVIDERS: ADMIT Internal Medicine; ATTEND Internal Medicine
DX: R07.89 Other chest pain (principal); I25.10 Atherosclerotic heart disease of native coronary artery without angina pectoris; E11.9 Type 2 diabetes mellitus without complications; G47.33 Obstructive sleep apnea (adult) (pediatric); F32.9 Major depressive disorder, single episode, unspecified; E78.5 Hyperlipidemia, unspecified; I10 Essential (primary) hypertension; K21.9 Gastro-esophageal reflux disease without esophagitis; F41.9 Anxiety disorder, unspecified; E66.9 Obesity, unspecified; Z68.33 Body mass index [BMI] 33.0-33.9, adult; Z86.73 Personal history of transient ischemic attack (TIA), and cerebral infarction without residual deficits; Z87.891 Personal history of nicotine dependence; Z79.82 Long term (current) use of aspirin; Z79.84 Long term (current) use of oral hypoglycemic drugs; Z79.899 Other long term (current) drug therapy; Z95.1 Presence of aortocoronary bypass graft; Z95.5 Presence of coronary angioplasty implant and graft
CPT/HCPCS: 71045; 78452; 80053; 82550; 82962 ×2; 83690; 84484 ×2; 85025; 93005; 93017; 94760 ×3; 96374; 96375; 96376; 99285; A9500; G0378 ×3; 36415; 36416; J1885; J2270; J2785

== ENCOUNTER 2020-06-06 10:31 | Emergency (ER) | payer MEDICARE ==
[2020-06-06] MEDS ORDERED: Sodium Chloride 0.9% 500 ML IVPB ONE (11:15)
[2020-06-06] MEDS ORDERED: levETIRAcetam In NaCl (Iso-Os) 1,000 MG in Premix Bag 1 BAG IVPB SCH (11:15)
--- NOTE | 2020-06-06 11:29 | RAD ---
RADIOGRAPH CHEST 1 VIEW: DATE: 06/06/2020 HISTORY: 80-year-old male with seizures. Concern for aspiration. FINDINGS: There are no airspace densities, pulmonary edema, pneumothorax, or cardiomegaly. The lateral costophr enic angles are sharp. There are sternotomy wires. IMPRESSION: No acute cardiopulmonary findings.
[2020-06-06 11:44] LABS: ALT (SGPT) 8 U/L (8-55); AST (SGOT) 8 U/L (5-34); Albumin 3.9 g/dL (3.4-4.8); Alkaline Phosphatase 112 U/L (40-110); Anion Gap 13 mmol/L (10-20); BUN (Urea Nitrogen) 15 mg/dL (8.4-25.7); Bilirubin, Total 0.3 mg/dL (0.2-1.2); CK (CPK) 35 U/L (30-200); Calc. Creatinine Clearance 0 mL/min (70-130); Calcium 8.9 mg/dL (7.8-10.44); Carbon Dioxide 23 mmol/L (23-31); Chloride 105 mmol/L (98-107); Estimated GFR-MDRD 76; Globulin 3.4 g/dL (2.4-3.5); Glucose 210 mg/dL (83-110); Potassium 3.7 mmol/L (3.5-5.1); Protein, Total 7.3 g/dL (5.8-8.1); Sodium 137 mmol/L (136-145)
[2020-06-06 11:52] LABS: #Basophils 0.1 thou/uL (0.0-0.2); #Eosinphils 0.1 thou/uL (0.0-0.7); #Lymphocytes 1.5 thou/uL (1.20-3.40); #Monocytes 0.6 thou/uL (0.11-0.59); #Neutrophils 4.6 thou/uL (1.40-6.50); %Basophils 0.8 % (0.0-1.0); %Eosinophils 2.1 % (0.0-10.0); %Lymphocytes 21.7 % (21.0-51.0); %Monocytes 8.1 % (0.0-10.0); %Neutrophils 67.3 % (42.0-75.0); Hemoglobin 11.5 g/dL (14.0-18.0); Mean Corpuscular Hemoglobin 30.3 pg (27.0-31.0); Mean Platelet Volume 7.1 fL (7.4-10.4); Platelet Count 230 thou/uL (130-400); RBC Distribution Width 12.6 % (11.5-14.5); Red Blood Cell (RBC) Count 3.79 mill/uL (4.70-6.10); White Blood Cell (WBC) Count 6.9 thou/uL (4.8-10.8)
--- NOTE | 2020-06-06 11:56 | CT ---
Exam: Head CT without contrast HISTORY: Altered mental status. Seizure for last 3 days. COMPARISON: 10/22/2017 FINDINGS: Hemorrhage: No intraparenchymal hemorrhage or extra-axial hematoma. Brain parenchyma: Cortical smith-white matter differentiation is preserved. No mass effect or midline shift. Basilar cisterns are patent.Scattered white matter hypodensities due to chronic small vessel ischemic change Ventricular system: Ventricles and sulci are patent and symmetric. Calvarium: Intact. Sinuses and mastoid air cells: Adequate aeration. IMPRESSION: 1. No acute intracranial process 2. Further evaluation with brain MRI if clinically warranted.
[2020-06-06 12:40] LABS: Bilirubin Negative (Negative); Blood, Urine Negative (Negative); Clarity Clear (Clear); Glucose, Urine (Dipstick) 300 mg/dL (Negative); Ketone, Urine Negative (Negative); Leukocyte Negative Leu/uL (Negative); Nitrite Negative (Negative); Protein, Urine (Dipstick) Negative (Neg-Trace); Specific Gravity, Urine 1.014 (1.002-1.036); Urobilinogen Normal mg/dL (Less than 2); pH, Urine 5.5 (5.0-9.0)
[2020-06-06] MEDS ORDERED: Meclizine HCl 25 MG TAB ONE (14:17)
== END 2020-06-06 14:38 | disposition home or self-care (01) ==
LOC: ERS 10:31
DX: R56.9 Unspecified convulsions (principal); R42 Dizziness and giddiness; E11.9 Type 2 diabetes mellitus without complications; E78.5 Hyperlipidemia, unspecified; I10 Essential (primary) hypertension; G47.30 Sleep apnea, unspecified; F32.9 Major depressive disorder, single episode, unspecified; F41.9 Anxiety disorder, unspecified; Z87.891 Personal history of nicotine dependence; Z79.899 Other long term (current) drug therapy; Z79.82 Long term (current) use of aspirin; Z79.84 Long term (current) use of oral hypoglycemic drugs
CPT/HCPCS: 36415; 70450; 71045; 80053; 81003; 82550; 84146; 84484; 85025; 93005; 96365; J1953

== ENCOUNTER 2020-06-24 12:41 | Outpatient (CLI) | payer MEDICARE ==
--- NOTE | 2020-06-28 13:30 | EEG ---
DATE OF SERVICE: 06/24/2020 DESCRIPTION OF THE RECORD: Waking background is an 8 hertz alpha frequency. The patient remained awake throughout the study. Photic stimulation was unremarkable. IMPRESSION: This is a normal awake EEG. Job ID: [id number]
== END 2020-06-24 12:42 | disposition home or self-care (01) ==
LOC: EEG 12:41
PROVIDERS: ATTEND Emergency Medicine
DX: R42 Dizziness and giddiness (principal); I70.90 Unspecified atherosclerosis
CPT/HCPCS: 95816

== ENCOUNTER 2020-09-15 08:27 | Outpatient (CLI) | payer MEDICARE, OTHER ==
[2020-09-15 16:33] LABS: Hemoglobin 13.1 g/dL (14.0-18.0); Mean Corpuscular HGB CONC 33.6 g/dL (32.0-36.0); Mean Corpuscular Hemoglobin 29.6 pg (27.0-31.0); Mean Platelet Volume 8.1 fL (7.4-10.4); Platelet Count 269 thou/uL (130-400); RBC Distribution Width 13.4 % (11.5-14.5); Red Blood Cell (RBC) Count 4.43 mill/uL (4.70-6.10); White Blood Cell (WBC) Count 10.7 thou/uL (4.8-10.8)
[2020-09-15 16:40] LABS: INR-International Normal Ratio 0.9; PTT 26.1 sec (22.9-36.1); Prothrombin Time 12.7 sec (12.0-14.7)
[2020-09-15 16:51] LABS: Bacteria/HPF None Seen HPF (None Seen); Bilirubin Negative (Negative); Blood, Urine Negative (Negative); Calcium Oxalate Crystals 1+ HPF (None Seen); Clarity Turbid (Clear); Glucose, Urine (Dipstick) 300 mg/dL (Negative); Ketone, Urine Negative (Negative); Leukocyte Negative Leu/uL (Negative); Mucous/LPF 1+ LPF (<2+); Nitrite Negative (Negative); Protein, Urine (Dipstick) 30 mg/dL (Neg-Trace); RBC/HPF 0-3 HPF (0-3); Specific Gravity, Urine 1.026 (1.002-1.036); Squamous Epithelial 0-3 HPF (0-3); Urobilinogen Normal mg/dL (Less than 2); WBC/HPF 0-3 HPF (0-3)
[2020-09-15 17:29] LABS: Anion Gap 17 mmol/L (10-20); BUN (Urea Nitrogen) 21 mg/dL (8.4-25.7); Calc. Creatinine Clearance 0 mL/min (70-130); Calcium 9.1 mg/dL (7.8-10.44); Carbon Dioxide 19 mmol/L (23-31); Chloride 104 mmol/L (98-107); Estimated GFR-MDRD 61; Glucose 196 mg/dL (83-110); Potassium 4.2 mmol/L (3.5-5.1); Sodium 136 mmol/L (136-145)
[2020-09-16 12:32] LABS: SARS-CoV-2 MS2 Positive; SARS-CoV-2 N Gene Negative; SARS-CoV-2 S Gene Negative; SARS-CoV-2 by NAA Not Detected (NotDetected); SARS-CoV-2 orf1ab Negative
--- NOTE | 2020-09-23 13:14 | EKG ---
Test Reason : EKG Blood Pressure : / mmHG Vent. Rate : 073 BPM Atrial Rate : 073 BPM P-R Int : 150 ms QRS Dur : 082 ms QT Int : 388 ms P-R-T Axes : 028 030 040 degrees QTc Int : 427 ms Normal sinus rhythm with sinus arrhythmia Normal ECG No previous ECGs available Confirmed by DR. Sonny CHAVEZ ([id number]) on 09/23/2020 1:14:41 PM Referred By: DR MONSIVAIS Confirmed By:DR. Sonny CHAVEZ
== END 2020-09-15 08:28 | disposition home or self-care (01) ==
LOC: LABBT 08:27
PROVIDERS: ATTEND Urology
DX: Z01.818 Encounter for other preprocedural examination (principal); N40.0 Benign prostatic hyperplasia without lower urinary tract symptoms; Z20.828 Contact with and (suspected) exposure to other viral communicable diseases
CPT/HCPCS: 80048; 81001; 85027; 85610; 85730; 87086; 93005; U0003; 87635; 93010

== ENCOUNTER 2020-09-20 08:52 | Observation (INO) | payer MEDICARE ==
[2020-09-20] MEDS ORDERED: Dexamethasone 20 MG/5 ML VIAL ONE (09:05)
[2020-09-20] MEDS ORDERED: EPHEDRINE 25 MG/5 ML SYRINGE ONE (09:05)
[2020-09-20] MEDS ORDERED: Ondansetron PF 4 MG/2 ML Vial ONE (09:05)
[2020-09-20] MEDS ORDERED: PROPOFOL 200 MG/20 ML VIAL ONE (09:05)
[2020-09-20] MEDS ORDERED: Lidocaine 1% PF 5 ML VIAL ONE (09:05)
[2020-09-20] MEDS ORDERED: Levofloxacin 500 mg/D5W 100 ml Premix Bag ONE (09:31)
[2020-09-20] MEDS ORDERED: Fentanyl 100 MCG/2 ML VIAL ONE (11:35)
[2020-09-20] MEDS ORDERED: Promethazine HCl 25 MG/ML VIAL SLOW IVP PRN (12:57)
[2020-09-20] MEDS ORDERED: Promethazine HCl 25 MG/ML VIAL IM PRN (12:57)
[2020-09-20] MEDS ORDERED: Ondansetron HCl/PF 4 MG/2 ML Vial IVP PRN (12:57)
[2020-09-20] MEDS ORDERED: HYDROcodone/Acetaminophen 5/325 mg Tablet PO PRN (13:35)
[2020-09-20] MEDS ORDERED: hydrALAZINE 20 MG/ML VIAL SLOW IVP PRN (13:35)
[2020-09-20] MEDS ORDERED: diphenhydrAMINE 50 MG/ML VIAL IVP PRN (13:35)
[2020-09-20] MEDS ORDERED: Zolpidem Tartrate 5 MG TAB PO PRN (13:35)
[2020-09-20] MEDS ORDERED: Morphine 2 MG/ML VIAL SLOW IVP PRN (13:35)
[2020-09-20] MEDS ORDERED: Ketorolac Tromethamine 30 MG/ML VIAL IVP PRN (13:35)
[2020-09-20] MEDS ORDERED: Lorazepam 0.5 MG TAB PO PRN (13:35)
[2020-09-20] MEDS ORDERED: Hyoscyamine Sulfate SL 0.125 mg Tablet SL PRN (13:35)
--- NOTE | 2020-09-20 19:02 | OP ---
DATE OF PROCEDURE: 09/20/2020 PREOPERATIVE DIAGNOSIS: Enlarged prostate with lower urinary tract symptoms. POSTOPERATIVE DIAGNOSIS: Enlarged prostate with lower urinary tract symptoms. PROCEDURE PERFORMED: Transurethral resection of prostate. ANESTHESIA: General. COMPLICATIONS: None. BLOOD LOSS: Minimal. SPECIMEN: Prostate chips. DESCRIPTION OF PROCEDURE: After informed consent, the patient was taken to the operating room, transferred to the table on his own power. Anesthesia was established. A time-out was performed showing correct patient site and procedure. Preoperative antibiotics were administered. He was prepped and draped in the lithotomy position. The rigid resectoscope was advanced easily through his urethra noting a normal course and caliber of the urethra down to the prostate noting large coapting lateral lobes and a very large median lobe protruding into the bladder. The bladder was entered and systematically examined noting [id number] trabeculation, but no mucosal abnormalities. Both ureters were normal in appearance. I began by resecting the median lobe and then resected from the bladder neck back to the verumontanum in midline. The left lobe was resected from 1 o'clock down to midline and then the right lobe from 11 o'clock down to midline. Anterior obstructing tissue was then resected. Care was taken to avoid resection distal to the verumontanum. The 3TIER evacuator was used to retrieve all prostate chips. The bladder was then re-examined noting no further prostate chips and both ureters uninvolved with resection. The prostatic fossa was then inspected noting no active bleeding. The scope was withdrawn and then a 22-Sinhala 3-way Galindo catheter was placed with 30 mL instilled in the balloon. This was connected to CBI which was running clear as the case was terminated. The patient was brought down from lithotomy, transferred back to his hospital bed and taken to PACU in stable condition, where he will be admitted overnight. Job ID: [id number] [facility]
[2020-09-20 20:17] VITALS: BMI 31.8
[2020-09-20] MEDS ORDERED: OLANZapine 2.5 MG TAB PO SCH (21:00)
[2020-09-20] MEDS: Sodium Chloride 0.9% 1,000 ML IV SCH (21:11)
[2020-09-20] MEDS: metFORMIN 500 MG TAB PO SCH (21:18)
[2020-09-20] MEDS: Carvedilol 6.25 MG TAB PO SCH (21:18)
[2020-09-20] MEDS: Docusate 100 MG CAP PO SCH (21:19)
[2020-09-20] MEDS: Hydroxychloroquine Sulfate 200 MG TAB PO SCH (22:07)
[2020-09-21] MEDS: Sodium Chloride 0.9% 1,000 ML IV SCH ×2 (00:15→09:05)
[2020-09-21] MEDS ORDERED: predniSONE 5 MG TAB PO SCH (08:00)
[2020-09-21 08:14] VITALS: BP 177/77; TEMP 97.7
[2020-09-21] MEDS: Carvedilol 6.25 MG TAB PO SCH (08:38)
[2020-09-21] MEDS: Docusate 100 MG CAP PO SCH (08:39)
[2020-09-21] MEDS: metFORMIN 500 MG TAB PO SCH (08:39)
[2020-09-21] MEDS: Hydroxychloroquine Sulfate 200 MG TAB PO SCH (08:40)
[2020-09-21] MEDS ORDERED: lamoTRIgine 100 MG TAB PO SCH (09:00)
[2020-09-21] MEDS ORDERED: FLUoxetine HCl 20 MG CAP PO SCH (09:00)
[2020-09-21] MEDS ORDERED: Amlodipine 10 MG TAB PO SCH (09:00)
--- NOTE | 2020-09-22 13:15 | DIS ---
DATE OF ADMISSION: 09/20/2020 DATE OF DISCHARGE: 09/21/2020 DISCHARGE DIAGNOSIS: Lower urinary tract symptoms due to enlarged prostate. PROCEDURE PERFORMED: Bipolar transurethral resection of prostate. HOSPITAL COURSE: The patient underwent an uncomplicated bipolar transurethral resection of the prostate. He was managed overnight with continuous bladder irrigation. The following morning, this was turned off with urine remaining clear. He was tolerating diet, having minimal discomfort, and stable for discharge home at that point. DISCHARGE PLAN: Follow up next Saturday for void trial. DISCHARGE MEDICATIONS: Bactrim and tramadol as well as continuing home medications. Job ID: [id number]
== END 2020-09-21 10:40 | disposition home or self-care (01) ==
LOC: SDC 08:52 → SURG B 12:07
PROVIDERS: ADMIT Urology; ATTEND Urology
PROC: 0VT08ZZ Resection of Prostate, Via Natural or Artificial Opening Endoscopic (ICD-10-PCS; principal; 2020-09-20)
DX: N40.1 Benign prostatic hyperplasia with lower urinary tract symptoms (principal); N32.89 Other specified disorders of bladder; Z79.52 Long term (current) use of systemic steroids; Z79.84 Long term (current) use of oral hypoglycemic drugs; Z79.899 Other long term (current) drug therapy; Z88.0 Allergy status to penicillin; Z95.1 Presence of aortocoronary bypass graft
CPT/HCPCS: 52601; 88305; 96360; 96361; G0378 ×2; J1100; J1956; J2405; J2704; J3010; J7512

== ENCOUNTER 2021-09-13 14:55 | Inpatient (IN) | payer MEDICARE ==
[2021-09-13] MEDS ORDERED: Iopamidol-370 76% 500 ML 1 ML ONE (14:56)
[2021-09-13 15:37] LABS: #Eosinphils 0.4 thou/uL (0.0-0.7); #Lymphocytes 1.5 thou/uL (1.20-3.40); #Monocytes 0.7 thou/uL (0.11-0.59); #Neutrophils 5.8 thou/uL (1.40-6.50); %Basophils 0.3 % (0.0-1.0); %Eosinophils 4.2 % (0.0-10.0); %Lymphocytes 17.7 % (21.0-51.0); %Monocytes 8.4 % (0.0-10.0); %Neutrophils 69.4 % (42.0-75.0); Hemoglobin 12.6 g/dL (14.0-18.0); Mean Corpuscular HGB CONC 34.7 g/dL (32.0-36.0); Mean Corpuscular Volume 89.2 fL (78.0-98.0); Platelet Count 248 thou/uL (130-400); RBC Distribution Width 11.8 % (11.5-14.5); Red Blood Cell (RBC) Count 4.06 mill/uL (4.70-6.10); White Blood Cell (WBC) Count 8.3 thou/uL (4.8-10.8)
[2021-09-13 15:58] LABS: ALT (SGPT) 9 U/L (8-55); AST (SGOT) 8 U/L (5-34); Albumin 3.6 g/dL (3.4-4.8); Alkaline Phosphatase 125 U/L (40-110); Anion Gap 13 mmol/L (10-20); BUN (Urea Nitrogen) 15 mg/dL (8.4-25.7); Bilirubin, Total 0.4 mg/dL (0.2-1.2); Calc. Creatinine Clearance 0 mL/min (70-130); Calcium 9.1 mg/dL (7.8-10.44); Carbon Dioxide 27 mmol/L (23-31); Chloride 102 mmol/L (98-107); Globulin 3.2 g/dL (2.4-3.5); Glucose 182 mg/dL (83-110); Potassium 4.6 mmol/L (3.5-5.1); Protein, Total 6.8 g/dL (5.8-8.1); Sodium 137 mmol/L (136-145)
[2021-09-13] MEDS ORDERED: Morphine 4 MG/ML VIAL ONE (16:42)
[2021-09-13] MEDS ORDERED: Aspirin Chewable 81 MG TAB ONE (16:43)
[2021-09-13 19:01] LABS: Troponin I Less than 0.010 ng/mL (< 0.028)
[2021-09-13] MEDS ORDERED: Morphine 4 MG/ML VIAL SLOW IVP PRN (19:19)
[2021-09-13 22:03] LABS: Troponin I Less than 0.010 ng/mL (< 0.028)
[2021-09-13] MEDS ORDERED: Ondansetron PF 4 MG/2 ML Vial IVP PRN (22:47)
[2021-09-13] MEDS ORDERED: Senokot S 8.6-50 MG TAB PO PRN (22:47)
[2021-09-13] MEDS ORDERED: Bisacodyl 5 MG TAB PO PRN (22:47)
[2021-09-13] MEDS ORDERED: hydrALAZINE 20 MG/ML VIAL SLOW IVP PRN (22:53)
[2021-09-13] MEDS ORDERED: Dextrose 50% Abboject 50 ML SYRINGE SLOW IVP PRN (23:24)
[2021-09-13] MEDS ORDERED: Insulin Regular 300 UNITS/3 ML VIAL SC PRN (23:24)
[2021-09-13] MEDS ORDERED: Dextrose 5% in Water 1,000 ML IV PRN (23:24)
[2021-09-13] MEDS ORDERED: Lorazepam 0.5 MG TAB PO PRN (23:27)
[2021-09-13] MEDS ORDERED: Melatonin 3 MG TAB PO PRN (23:31)
[2021-09-14 05:59] LABS: Hemoglobin 11.8 g/dL (14.0-18.0); Mean Corpuscular HGB CONC 34.6 g/dL (32.0-36.0); Mean Corpuscular Hemoglobin 30.9 pg (27.0-31.0); Mean Corpuscular Volume 89.4 fL (78.0-98.0); Mean Platelet Volume 6.9 fL (7.4-10.4); Platelet Count 210 thou/uL (130-400); RBC Distribution Width 11.8 % (11.5-14.5); Red Blood Cell (RBC) Count 3.81 mill/uL (4.70-6.10); White Blood Cell (WBC) Count 7.5 thou/uL (4.8-10.8)
[2021-09-14 06:08] LABS: Hemoglobin A1c 7.8 % (4.0-6.0)
[2021-09-14] MEDS: Acetaminophen 325 MG TAB PO PRN (06:09)
[2021-09-14 06:14] LABS: Anion Gap 13 mmol/L (10-20); BUN (Urea Nitrogen) 15 mg/dL (8.4-25.7); Calc. Creatinine Clearance 98 mL/min (70-130); Calcium 8.5 mg/dL (7.8-10.44); Carbon Dioxide 24 mmol/L (23-31); Cardiac Risk 4.1 (Less than 4.5); Chloride 103 mmol/L (98-107); Cholesterol 120 mg/dl (< 200 Desired); Glucose 178 mg/dL (83-110); HDL Cholesterol 29 mg/dL (>60 Neg Risk); LDL Cholesterol, Calculated 67 mg/dL; Sodium 136 mmol/L (136-145); Triglycerides 120 mg/dL (Less than 150)
[2021-09-14 06:30] LABS: Band 2 % (5-11); Eosinophils 4 % (0-10); Lymphocytes 18 % (21-51); MDiff Complete? YES; Monocytes 2 % (0-10); Neutrophil 74 % (42-75)
[2021-09-14] MEDS: Heparin 5,000 UNITS/ML VIAL SC SCH ×3 (08:51→20:33)
[2021-09-14] MEDS: Famotidine/PF 20 mg/2ml Vial SLOW IVP SCH ×2 (08:51→20:33)
[2021-09-14] MEDS ORDERED: Aspirin 81 mg Enteric Coated Tablet PO SCH (09:00)
[2021-09-14] MEDS ORDERED: Aspirin Chewable 81 MG TAB PO SCH (09:00)
[2021-09-14] MEDS ORDERED: Ketorolac Tromethamine 30 MG/ML VIAL IVP SCH (09:30)
[2021-09-14] MEDS: Sodium Chloride 0.9% 1,000 ML IV SCH (11:16)
[2021-09-14] MEDS: Insulin Regular 300 UNITS/3 ML VIAL SC PRN (11:47)
[2021-09-14 11:48] LABS: Prothrombin Time 13.2 sec (12.0-14.7)
[2021-09-14 11:49] LABS: PTT 32.5 sec (22.9-36.1)
[2021-09-14 12:12] LABS: SARS-CoV-2 PCR by NAA Not Detected (NotDetected)
[2021-09-14] MEDS ORDERED: Iopamidol-370 76% 500 ML 1 ML ONE (15:53)
[2021-09-14] MEDS: Carvedilol 6.25 MG TAB PO SCH (16:50)
[2021-09-14 23:34] VITALS: BMI 33.5
[2021-09-15] MEDS: Acetaminophen 325 MG TAB PO PRN (04:23)
[2021-09-15 05:16] LABS: #Eosinphils 0.3 thou/uL (0.0-0.7); #Lymphocytes 1.3 thou/uL (1.20-3.40); #Monocytes 0.5 thou/uL (0.11-0.59); %Basophils 0.4 % (0.0-1.0); %Eosinophils 4.8 % (0.0-10.0); %Lymphocytes 17.4 % (21.0-51.0); %Monocytes 7.4 % (0.0-10.0); %Neutrophils 69.9 % (42.0-75.0); Hemoglobin 12.3 g/dL (14.0-18.0); Mean Corpuscular HGB CONC 35.6 g/dL (32.0-36.0); Mean Corpuscular Hemoglobin 31.5 pg (27.0-31.0); Mean Corpuscular Volume 88.5 fL (78.0-98.0); Mean Platelet Volume 7.2 fL (7.4-10.4); Platelet Count 208 thou/uL (130-400); RBC Distribution Width 11.9 % (11.5-14.5); Red Blood Cell (RBC) Count 3.91 mill/uL (4.70-6.10); White Blood Cell (WBC) Count 7.1 thou/uL (4.8-10.8)
[2021-09-15 05:25] LABS: Prothrombin Time 13.3 sec (12.0-14.7)
[2021-09-15 05:37] LABS: ALT (SGPT) 12 U/L (8-55); AST (SGOT) 10 U/L (5-34); Albumin 3.3 g/dL (3.4-4.8); Alkaline Phosphatase 114 U/L (40-110); Anion Gap 15 mmol/L (10-20); BUN (Urea Nitrogen) 11 mg/dL (8.4-25.7); Bilirubin, Total 0.3 mg/dL (0.2-1.2); Calc. Creatinine Clearance 89 mL/min (70-130); Calcium 8.6 mg/dL (7.8-10.44); Carbon Dioxide 23 mmol/L (23-31); Chloride 103 mmol/L (98-107); Globulin 2.8 g/dL (2.4-3.5); Glucose 173 mg/dL (83-110); Potassium 3.8 mmol/L (3.5-5.1); Protein, Total 6.1 g/dL (5.8-8.1); Sodium 137 mmol/L (136-145)
[2021-09-15] MEDS: Insulin Regular 300 UNITS/3 ML VIAL SC PRN (06:34)
[2021-09-15] MEDS: Sodium Chloride 0.9% 1,000 ML IV SCH (07:38)
[2021-09-15] MEDS ORDERED: Amlodipine 5 MG TAB PO SCH (09:00)
[2021-09-15] MEDS: Carvedilol 6.25 MG TAB PO SCH (09:08)
[2021-09-15] MEDS: Famotidine/PF 20 mg/2ml Vial SLOW IVP SCH (09:09)
[2021-09-15] MEDS ORDERED: Sodium Bicarbonate 2.5 MEQ/5 ML VIAL ONE (13:20)
[2021-09-15] MEDS ORDERED: Fentanyl 100 MCG/2 ML VIAL ONE (13:20)
[2021-09-15] MEDS ORDERED: Midazolam HCl 2 mg/2 ml Vial ONE (13:20)
[2021-09-15 15:36] VITALS: BP 150/68; TEMP 98.6
[2021-09-16] MEDS ORDERED: FLU VACC QS2021-22(65YR UP)/PF 240 MCG/0.7 ML SYRINGE IM ONE (09:00)
[2021-09-16] MEDS ORDERED: Aspirin 81 mg Enteric Coated Tablet PO SCH (09:00)
== END 2021-09-15 17:45 | disposition home or self-care (01) | DRG 313 ==
LOC: ERS 14:55 → 2NO 17:59 → OBSVTOIN 09-15 11:16
PROVIDERS: ADMIT Family Medicine; ATTEND Family Medicine
DX: R07.89 Other chest pain (principal); E66.9 Obesity, unspecified; Z20.822 Contact with and (suspected) exposure to COVID-19; I25.10 Atherosclerotic heart disease of native coronary artery without angina pectoris; E78.5 Hyperlipidemia, unspecified; K21.9 Gastro-esophageal reflux disease without esophagitis; R91.1 Solitary pulmonary nodule; K59.00 Constipation, unspecified; Z77.090 Contact with and (suspected) exposure to asbestos; I10 Essential (primary) hypertension; E11.59 Type 2 diabetes mellitus with other circulatory complications; F41.9 Anxiety disorder, unspecified; F32.A Depression, unspecified; Z68.33 Body mass index [BMI] 33.0-33.9, adult; Z86.73 Personal history of transient ischemic attack (TIA), and cerebral infarction without residual deficits; Z87.891 Personal history of nicotine dependence; Z95.1 Presence of aortocoronary bypass graft; Z79.84 Long term (current) use of oral hypoglycemic drugs; Z79.82 Long term (current) use of aspirin; Z79.899 Other long term (current) drug therapy; Z90.49 Acquired absence of other specified parts of digestive tract; Z82.49 Family history of ischemic heart disease and other diseases of the circulatory system; Z82.3 Family history of stroke
CPT/HCPCS: 36415; 36416; 71045; 71275; 74177; 76380; 80048; 80053; 80061; 82550; 83036; 84484; 85007; 85025; 85027; 85610; 85730; 93005; 93010; 96375; 96376; G0378; J1644; J1815; J1885; J2250; J2270; J3010; J7050; Q9967; S0028; U0003; U0005

== ENCOUNTER 2021-10-05 09:01 | Outpatient (CLI) | payer MEDICARE | END 2021-10-05 09:02 | disposition home or self-care (01) | LOC: PET 09:01 | PROVIDERS: ATTEND Thoracic Surgery (Cardiothoracic Vascular Surgery) | DX: R91.8 Other nonspecific abnormal finding of lung field (principal); R59.0 Localized enlarged lymph nodes | CPT/HCPCS: 78815; A9552 ==

== ENCOUNTER 2021-11-27 06:32 | Inpatient (IN) | payer OTHER, MEDICARE ==
[2021-11-27] MEDS ORDERED: Nitroglycerin 2% Ointment 1 INCH/1 GM Packet ONE (06:57)
[2021-11-27 08:30] LABS: #Lymphocytes 0.4 thou/uL (1.20-3.40); #Monocytes 0.5 thou/uL (0.11-0.59); #Neutrophils 11.7 thou/uL (1.40-6.50); %Eosinophils 0.2 % (0.0-10.0); %Lymphocytes 3.3 % (21.0-51.0); %Monocytes 4.1 % (0.0-10.0); %Neutrophils 92.3 % (42.0-75.0); Hemoglobin 8.2 g/dL (14.0-18.0); Mean Corpuscular HGB CONC 32.3 g/dL (32.0-36.0); Mean Corpuscular Hemoglobin 28.1 pg (27.0-31.0); Mean Corpuscular Volume 86.9 fL (78.0-98.0); Mean Platelet Volume 6.4 fL (7.4-10.4); Platelet Count 257 thou/uL (130-400); RBC Distribution Width 13.3 % (11.5-14.5); Red Blood Cell (RBC) Count 2.91 mill/uL (4.70-6.10); White Blood Cell (WBC) Count 12.7 thou/uL (4.8-10.8)
[2021-11-27 08:47] LABS: Bilirubin Negative (Negative); Blood, Urine 3+ (Negative); Clarity Turbid (Clear); Glucose, Urine (Dipstick) 30 mg/dL (Negative); Ketone, Urine Negative (Negative); Leukocyte 75 Leu/uL (Negative); Nitrite Negative (Negative); Protein, Urine (Dipstick) 100 mg/dL (Neg-Trace); Specific Gravity, Urine 1.012 (1.002-1.036); Squamous Epithelial 0-3 HPF (0-3); Urobilinogen Normal mg/dL (Less than 2)
[2021-11-27] MEDS ORDERED: Dexamethasone 10 MG/ML VIAL ONE (08:48)
[2021-11-27 08:57] LABS: Bacteria/HPF 1+ HPF (None Seen)
[2021-11-27 08:57] LABS: ALT (SGPT) 43 U/L (8-55); AST (SGOT) 26 U/L (5-34); Albumin 2.9 g/dL (3.4-4.8); Alkaline Phosphatase 98 U/L (40-110); Anion Gap 19 mmol/L (10-20); BUN (Urea Nitrogen) 90 mg/dL (8.4-25.7); Bilirubin, Total 0.5 mg/dL (0.2-1.2); CK (CPK) 29 U/L (30-200); Calc. Creatinine Clearance 0 mL/min (70-130); Calcium 8.1 mg/dL (7.8-10.44); Carbon Dioxide 13 mmol/L (23-31); Chloride 102 mmol/L (98-107); Globulin 3.1 g/dL (2.4-3.5); Glucose 134 mg/dL (83-110); Lipase 20 U/L (8-78); Potassium 6.4 mmol/L (3.5-5.1); Sodium 128 mmol/L (136-145)
[2021-11-27 08:59] LABS: RBC/HPF 21-50 HPF (0-3)
[2021-11-27] MEDS ORDERED: Calcium Chloride 1 GM/10 ML Abboject SYRINGE ONE (09:14)
[2021-11-27] MEDS ORDERED: Dextrose 50% Abboject 50 ML SYRINGE ONE (09:14)
[2021-11-27] MEDS ORDERED: Sodium Bicarb 50 MEQ/50 ML Abboject 8.4% SYRINGE ONE (09:14)
[2021-11-27] MEDS ORDERED: Insulin Regular 300 UNITS/3 ML VIAL ONE (09:14)
[2021-11-27] MEDS ORDERED: Ondansetron PF 4 MG/2 ML Vial IVP PRN (09:40)
[2021-11-27] MEDS ORDERED: Acetaminophen 325 MG TAB PO PRN (09:41)
[2021-11-27] MEDS ORDERED: Ondansetron ODT 4 MG TAB PO PRN (09:41)
[2021-11-27 10:58] LABS: Troponin I 0.015 ng/mL (< 0.028)
[2021-11-27] MEDS ORDERED: HumaLOG 300 UNITS/3 ML VIAL SC PRN (12:06)
[2021-11-27] MEDS ORDERED: Dextrose 50% Abboject 50 ML SYRINGE SLOW IVP PRN (12:06)
[2021-11-27] MEDS ORDERED: Dextrose 5% in Water 1,000 ML IV PRN (12:06)
[2021-11-27] MEDS ORDERED: Sodium Bicarbonate 150 MEQ in Dextrose 5% in Water 1,000 ML IV SCH (12:30)
[2021-11-27] MEDS ORDERED: Sodium Chloride 0.9% 1,000 ML IV SCH (12:45)
[2021-11-27 14:08] LABS: Anion Gap 20 mmol/L (10-20); BUN (Urea Nitrogen) 93 mg/dL (8.4-25.7); Calc. Creatinine Clearance 10 mL/min (70-130); Calcium 9.7 mg/dL (7.8-10.44); Carbon Dioxide 14 mmol/L (23-31); Chloride 103 mmol/L (98-107); Glucose 186 mg/dL (83-110); Magnesium 1.7 mg/dL (1.6-2.6); Potassium 5.8 mmol/L (3.5-5.1); Sodium 131 mmol/L (136-145)
[2021-11-27 14:09] LABS: Troponin I 0.011 ng/mL (< 0.028)
[2021-11-27] MEDS: Nitroglycerin 2% Ointment 1 INCH/1 GM Packet TOP SCH ×2 (14:21→20:36)
[2021-11-27] MEDS: Carvedilol 6.25 MG TAB PO SCH (16:29)
[2021-11-27] MEDS: HumaLOG 300 UNITS/3 ML VIAL SC PRN (17:12)
[2021-11-27] MEDS: hydrALAZINE 20 MG/ML VIAL SLOW IVP PRN (17:43)
[2021-11-27] MEDS ORDERED: FLU VACC QS2021-22(65YR UP)/PF 240 MCG/0.7 ML SYRINGE IM ONE (18:00)
[2021-11-27] MEDS ORDERED: LOKELMA 10 GM PACKET PO SCH (18:15)
[2021-11-27 20:22] LABS: Anion Gap 19 mmol/L (10-20); BUN (Urea Nitrogen) 94 mg/dL (8.4-25.7); Calc. Creatinine Clearance 11 mL/min (70-130); Calcium 8.7 mg/dL (7.8-10.44); Carbon Dioxide 17 mmol/L (23-31); Chloride 101 mmol/L (98-107); Glucose 216 mg/dL (83-110); Potassium 5.2 mmol/L (3.5-5.1); Sodium 132 mmol/L (136-145)
[2021-11-27] MEDS: Atorvastatin Calcium 40 MG TAB PO SCH (20:36)
[2021-11-27] MEDS: Enoxaparin Sodium 30 MG/0.3 ML SYRINGE SC SCH (20:36)
[2021-11-28 05:44] LABS: #Lymphocytes 0.7 thou/uL (1.20-3.40); #Monocytes 0.8 thou/uL (0.11-0.59); %Basophils 0.1 % (0.0-1.0); %Eosinophils 0.1 % (0.0-10.0); %Lymphocytes 4.8 % (21.0-51.0); %Monocytes 5.2 % (0.0-10.0); %Neutrophils 89.8 % (42.0-75.0); Hemoglobin 8.1 g/dL (14.0-18.0); Mean Corpuscular HGB CONC 33.3 g/dL (32.0-36.0); Mean Corpuscular Hemoglobin 28.3 pg (27.0-31.0); Mean Corpuscular Volume 84.8 fL (78.0-98.0); Platelet Count 295 thou/uL (130-400); RBC Distribution Width 13.4 % (11.5-14.5); Red Blood Cell (RBC) Count 2.88 mill/uL (4.70-6.10); White Blood Cell (WBC) Count 14.5 thou/uL (4.8-10.8)
[2021-11-28 06:09] LABS: Anion Gap 21 mmol/L (10-20); BUN (Urea Nitrogen) 92 mg/dL (8.4-25.7); BUN/Creatinine Ratio 12.48; Calc. Creatinine Clearance 10 mL/min (70-130); Carbon Dioxide 19 mmol/L (23-31); Chloride 98 mmol/L (98-107); Glucose 227 mg/dL (83-110); Magnesium 1.8 mg/dL (1.6-2.6); Sodium 133 mmol/L (136-145)
[2021-11-28 06:11] LABS: CRP (Inflammatory) 12.77 mg/dL (= or < 0.5); Cardiac Risk 3.4 (Less than 4.5)
[2021-11-28] MEDS: Nitroglycerin 2% Ointment 1 INCH/1 GM Packet TOP SCH ×3 (06:14→22:01)
[2021-11-28] MEDS: HumaLOG 300 UNITS/3 ML VIAL SC PRN ×2 (06:46→17:18)
[2021-11-28] MEDS ORDERED: Aspirin Chewable 81 MG TAB PO SCH (09:00)
[2021-11-28] MEDS: Carvedilol 6.25 MG TAB PO SCH ×2 (09:15→17:17)
[2021-11-28] MEDS ORDERED: Sodium Bicarbonate 150 MEQ in Dextrose 5% in Water 1,000 ML IV SCH (10:00)
[2021-11-28] MEDS ORDERED: Furosemide 40 MG/4 ML VIAL SLOW IVP SCH (10:15)
[2021-11-28] MEDS ORDERED: Albuterol Sulfate 1.25 MG/3 ML NEB NEB SCH (10:30)
[2021-11-28] MEDS: Albuterol 200 PUFF (6.7GM INHALER) INH SCH ×4 (11:16→22:02)
[2021-11-28] MEDS: Lorazepam 0.5 MG TAB PO PRN (20:49)
[2021-11-28] MEDS: Atorvastatin Calcium 40 MG TAB PO SCH (20:49)
[2021-11-28] MEDS: hydrALAZINE 20 MG/ML VIAL SLOW IVP PRN (20:50)
[2021-11-28] MEDS: Enoxaparin Sodium 30 MG/0.3 ML SYRINGE SC SCH (20:50)
[2021-11-29] MEDS: Albuterol 200 PUFF (6.7GM INHALER) INH SCH ×6 (01:38→22:15)
[2021-11-29] MEDS: Nitroglycerin 2% Ointment 1 INCH/1 GM Packet TOP SCH ×3 (05:35→22:27)
[2021-11-29] MEDS: HumaLOG 300 UNITS/3 ML VIAL SC PRN ×3 (05:40→17:07)
[2021-11-29 06:08] LABS: Anion Gap 18 mmol/L (10-20); BUN (Urea Nitrogen) 95 mg/dL (8.4-25.7); Calc. Creatinine Clearance 10 mL/min (70-130); Calcium 8.2 mg/dL (7.8-10.44); Carbon Dioxide 20 mmol/L (23-31); Chloride 97 mmol/L (98-107); Glucose 194 mg/dL (83-110); Potassium 4.3 mmol/L (3.5-5.1); Sodium 131 mmol/L (136-145)
[2021-11-29] MEDS: Aspirin 81 mg Enteric Coated Tablet PO SCH (08:49)
[2021-11-29] MEDS: Amlodipine 5 MG TAB PO SCH (08:49)
[2021-11-29] MEDS: Carvedilol 6.25 MG TAB PO SCH ×2 (08:49→18:22)
[2021-11-29] MEDS: FLUoxetine HCl 20 MG CAP PO SCH (08:49)
[2021-11-29] MEDS: Lorazepam 0.5 MG TAB PO PRN (08:50)
[2021-11-29] MEDS ORDERED: Heparin 10,000 UNITS/ 10 ML VIAL ONE (09:28)
[2021-11-29 13:34] LABS: ANA Symphony (Qualitative) Negative (Negative); ANA Symphony (Quantitative) 0.4 Ratio (< 0.7 Negative); dsDNA IgG Antibody 1.5 IU/mL (<10 Negative)
[2021-11-29 13:57] LABS: HBSAB Concentration Less than 8.00 mIU/mL; HBSAg Index 0.22 S/CO (0-0.99); Hep B Core Total Ab Non-Reactive (NonReactive); Hep B Core Total Index 0.07 S/CO (0-0.79); Hep B Surf AB Non-Reactive (NonReactive); Hep B Surf Ag Non-Reactive S/CO (NonReactive); Hep C IgG Ab Non-Reactive (NonReactive); Hep C Index 0.07 S/CO (0-0.79)
[2021-11-29] MEDS ORDERED: Dexamethasone 4 mg/ml Vial SLOW IVP SCH (15:00)
[2021-11-29 15:34] LABS: Creatinine, Urine 80.11 mg/dL (63-166)
[2021-11-29 18:30] LABS: SARS-CoV-2 IgG Spike Ab Interp Reactive (NonReactive); SARS-CoV-2 IgG Spike Conc/Indx 14058.6 AU/mL (0.00-50.0)
[2021-11-29] MEDS: Enoxaparin Sodium 30 MG/0.3 ML SYRINGE SC SCH (22:14)
[2021-11-29] MEDS: Atorvastatin Calcium 40 MG TAB PO SCH (22:15)
[2021-11-30] MEDS: Lorazepam 0.5 MG TAB PO PRN ×3 (00:14→21:07)
[2021-11-30] MEDS: Albuterol 200 PUFF (6.7GM INHALER) INH SCH ×5 (03:00→19:14)
[2021-11-30 06:14] LABS: Anion Gap 19 mmol/L (10-20); BUN (Urea Nitrogen) 67 mg/dL (8.4-25.7); CRP (Inflammatory) 11.79 mg/dL (= or < 0.5); Calc. Creatinine Clearance 13 mL/min (70-130); Calcium 8.1 mg/dL (7.8-10.44); Carbon Dioxide 22 mmol/L (23-31); Chloride 100 mmol/L (98-107); Glucose 194 mg/dL (83-110); Potassium 4.2 mmol/L (3.5-5.1); Sodium 137 mmol/L (136-145)
[2021-11-30] MEDS: HumaLOG 300 UNITS/3 ML VIAL SC PRN ×2 (06:18→12:01)
[2021-11-30] MEDS: Nitroglycerin 2% Ointment 1 INCH/1 GM Packet TOP SCH ×2 (06:19→12:55)
[2021-11-30 06:27] LABS: Ferritin 572.03 ng/mL (22-322)
[2021-11-30 06:39] LABS: HBSAg Index 0.23 S/CO (0-0.99); Hep B Surf Ag Non-Reactive S/CO (NonReactive); Hep C IgG Ab Non-Reactive (NonReactive); Hep C Index 0.08 S/CO (0-0.79)
[2021-11-30] MEDS: Amlodipine 5 MG TAB PO SCH (08:51)
[2021-11-30] MEDS: Aspirin 81 mg Enteric Coated Tablet PO SCH (08:51)
[2021-11-30] MEDS: Carvedilol 6.25 MG TAB PO SCH ×2 (08:51→17:34)
[2021-11-30] MEDS: Dexamethasone 4 mg/ml Vial SLOW IVP SCH (08:52)
[2021-11-30] MEDS: FLUoxetine HCl 20 MG CAP PO SCH (08:52)
[2021-11-30] MEDS ORDERED: Heparin 10,000 UNITS/ 10 ML VIAL ONE (09:35)
[2021-11-30] MEDS: Atorvastatin Calcium 40 MG TAB PO SCH (21:07)
[2021-11-30] MEDS: Enoxaparin Sodium 30 MG/0.3 ML SYRINGE SC SCH (21:07)
[2021-11-30] MEDS ORDERED: Ondansetron PF 4 MG/2 ML Vial IVP SCH (22:00)
[2021-12-01] MEDS: Nitroglycerin 2% Ointment 1 INCH/1 GM Packet TOP SCH ×5 (02:13→20:51)
[2021-12-01] MEDS: Albuterol 200 PUFF (6.7GM INHALER) INH SCH ×7 (02:14→21:26)
[2021-12-01] MEDS ORDERED: Morphine 4 MG/ML VIAL SLOW IVP SCH (04:45)
[2021-12-01 05:42] LABS: Anion Gap 14 mmol/L (10-20); BUN (Urea Nitrogen) 42 mg/dL (8.4-25.7); Calc. Creatinine Clearance 18 mL/min (70-130); Calcium 7.7 mg/dL (7.8-10.44); Carbon Dioxide 25 mmol/L (23-31); Chloride 98 mmol/L (98-107); Glucose 208 mg/dL (83-110); Potassium 3.8 mmol/L (3.5-5.1); Sodium 133 mmol/L (136-145)
[2021-12-01 05:48] LABS: Troponin I Less than 0.010 ng/mL (< 0.028)
[2021-12-01] MEDS: FLUoxetine HCl 20 MG CAP PO SCH (08:28)
[2021-12-01] MEDS: Aspirin 81 mg Enteric Coated Tablet PO SCH (08:29)
[2021-12-01] MEDS: Dexamethasone 4 mg/ml Vial SLOW IVP SCH (08:29)
[2021-12-01] MEDS: Carvedilol 6.25 MG TAB PO SCH ×2 (08:53→16:42)
[2021-12-01] MEDS: Amlodipine 5 MG TAB PO SCH (08:53)
[2021-12-01] MEDS: Acetaminophen 650 MG/20.3 ML UDCUP PO PRN (10:03)
[2021-12-01] MEDS: HumaLOG 300 UNITS/3 ML VIAL SC PRN ×2 (11:18→16:43)
[2021-12-01] MEDS: Atorvastatin Calcium 40 MG TAB PO SCH (20:31)
[2021-12-01] MEDS: Enoxaparin Sodium 30 MG/0.3 ML SYRINGE SC SCH (20:31)
[2021-12-02] MEDS: Lorazepam 0.5 MG TAB PO PRN (02:50)
[2021-12-02] MEDS: Albuterol 200 PUFF (6.7GM INHALER) INH SCH ×6 (02:50→21:59)
[2021-12-02] MEDS: Nitroglycerin 2% Ointment 1 INCH/1 GM Packet TOP SCH ×3 (02:51→22:00)
[2021-12-02] MEDS: HumaLOG 300 UNITS/3 ML VIAL SC PRN ×2 (06:19→18:09)
[2021-12-02] MEDS: Aspirin 81 mg Enteric Coated Tablet PO SCH (09:10)
[2021-12-02] MEDS: FLUoxetine HCl 20 MG CAP PO SCH (09:10)
[2021-12-02] MEDS: Dexamethasone 4 mg/ml Vial SLOW IVP SCH (09:10)
[2021-12-02] MEDS ORDERED: Heparin 10,000 UNITS/ 10 ML VIAL ONE (09:37)
[2021-12-02] MEDS: Carvedilol 6.25 MG TAB PO SCH ×2 (11:30→17:37)
[2021-12-02] MEDS: Amlodipine 5 MG TAB PO SCH (11:31)
[2021-12-02] MEDS: Enoxaparin Sodium 30 MG/0.3 ML SYRINGE SC SCH (22:00)
[2021-12-02] MEDS: Atorvastatin Calcium 40 MG TAB PO SCH (22:00)
[2021-12-03] MEDS: Lorazepam 0.5 MG TAB PO PRN (01:50)
[2021-12-03] MEDS: GUAIFENESIN SF SOLN 200 MG/10 ML UDCUP PO PRN ×2 (01:51→20:27)
[2021-12-03] MEDS: Albuterol 200 PUFF (6.7GM INHALER) INH SCH ×6 (01:51→22:28)
[2021-12-03] MEDS: Nitroglycerin 2% Ointment 1 INCH/1 GM Packet TOP SCH ×4 (04:00→20:26)
[2021-12-03] MEDS: FLUoxetine HCl 20 MG CAP PO SCH (08:44)
[2021-12-03] MEDS: Aspirin 81 mg Enteric Coated Tablet PO SCH (08:44)
[2021-12-03] MEDS: Dexamethasone 4 mg/ml Vial SLOW IVP SCH (08:44)
[2021-12-03 09:38] LABS: Anion Gap 12 mmol/L (10-20); BUN (Urea Nitrogen) 32 mg/dL (8.4-25.7); Calc. Creatinine Clearance 21 mL/min (70-130); Calcium 7.5 mg/dL (7.8-10.44); Carbon Dioxide 28 mmol/L (23-31); Chloride 97 mmol/L (98-107); Glucose 184 mg/dL (83-110); Potassium 3.8 mmol/L (3.5-5.1); Sodium 133 mmol/L (136-145)
[2021-12-03] MEDS: Acetaminophen 650 MG/20.3 ML UDCUP PO PRN ×2 (10:35→20:27)
[2021-12-03] MEDS: Carvedilol 6.25 MG TAB PO SCH ×2 (10:36→17:19)
[2021-12-03] MEDS: Amlodipine 5 MG TAB PO SCH (10:38)
[2021-12-03 12:37] LABS: Kappa Light Chains 156.3 mg/L (3.3-19.4); Lambda Light Chain 141.9 mg/L (5.7-26.3)
[2021-12-03] MEDS: HumaLOG 300 UNITS/3 ML VIAL SC PRN (17:21)
[2021-12-03] MEDS: Atorvastatin Calcium 40 MG TAB PO SCH (20:27)
[2021-12-03] MEDS: Enoxaparin Sodium 30 MG/0.3 ML SYRINGE SC SCH (20:27)
[2021-12-04] MEDS ORDERED: Ondansetron PF 4 MG/2 ML Vial IVP SCH (00:15)
[2021-12-04] MEDS: Docusate 100 MG CAP PO SCH ×2 (01:04→01:23)
[2021-12-04] MEDS: Albuterol 200 PUFF (6.7GM INHALER) INH SCH ×6 (02:30→23:46)
[2021-12-04] MEDS: Nitroglycerin 2% Ointment 1 INCH/1 GM Packet TOP SCH ×3 (05:49→20:15)
[2021-12-04 06:48] LABS: Anion Gap 13 mmol/L (10-20); BUN (Urea Nitrogen) 62 mg/dL (8.4-25.7); Calc. Creatinine Clearance 16 mL/min (70-130); Calcium 7.2 mg/dL (7.8-10.44); Carbon Dioxide 26 mmol/L (23-31); Chloride 99 mmol/L (98-107); Glucose 189 mg/dL (83-110); Potassium 4.7 mmol/L (3.5-5.1); Sodium 133 mmol/L (136-145)
[2021-12-04] MEDS: HumaLOG 300 UNITS/3 ML VIAL SC PRN (06:50)
[2021-12-04] MEDS: Carvedilol 6.25 MG TAB PO SCH (09:05)
[2021-12-04] MEDS: Amlodipine 5 MG TAB PO SCH (09:05)
[2021-12-04] MEDS ORDERED: Heparin 10,000 UNITS/ 10 ML VIAL ONE (09:06)
[2021-12-04] MEDS: Aspirin 81 mg Enteric Coated Tablet PO SCH (09:06)
[2021-12-04] MEDS: FLUoxetine HCl 20 MG CAP PO SCH (09:06)
[2021-12-04] MEDS: Dexamethasone 4 mg/ml Vial SLOW IVP SCH (09:07)
[2021-12-04] MEDS ORDERED: Sodium Chloride 0.9% 1,000 ML IV SCH (10:00)
[2021-12-04 10:04] LABS: ALT (SGPT) 18 U/L (8-55); AST (SGOT) 13 U/L (5-34); Albumin 2.2 g/dL (3.4-4.8); Alkaline Phosphatase 58 U/L (40-110); Bilirubin, Direct 0.3 mg/dL (0.1-0.3); Bilirubin, Total 0.6 mg/dL (0.2-1.2); Protein, Total 4.7 g/dL (5.8-8.1)
[2021-12-04 12:10] LABS: Hemoglobin 5.2 g/dL (14.0-18.0); Platelet Count 270 thou/uL (130-400)
[2021-12-04] MEDS ORDERED: Sodium Chloride 0.9% 250 ML IV SCH (12:15)
[2021-12-04] MEDS ORDERED: Sodium Chloride 0.9% 200 ML IV PRN (12:15)
[2021-12-04] MEDS ORDERED: Pantoprazole 80 MG in Sodium Chloride 0.9% 100 ML IVPB SCH (12:15)
[2021-12-04 16:12] LABS: A/G Ratio 0.7 (0.7-1.7); Albumin 2.4 g/dL (2.9-4.4); Alpha 1 0.4 g/dL (0.0-0.4); Alpha 2 0.9 g/dL (0.4-1.0); Globulin, Total 3.3 g/dL (2.2-3.9); M-Spike Not Observed g/dL (Not Observed)
[2021-12-04 16:36] LABS: Alpha 1 - Ur 3.3 % (.); Beta-Ur 11.8 % (.); Gamma-Ur 19.9 % (.); M-Spike,% Not Observed % (Not Observed); Protein, Urine 199.1 mg/dL (Not Estab.)
[2021-12-04] MEDS: EPOETIN ALFA-EPBX (ESRD) 10,000 UNIT/ML VIAL IVP SCH (17:04)
[2021-12-04] MEDS: Atorvastatin Calcium 40 MG TAB PO SCH (20:14)
[2021-12-04] MEDS ORDERED: Pantoprazole 40 MG VIAL IVP SCH (21:00)
[2021-12-04] MEDS: Pantoprazole 80 MG, Admixture Fee 1 EACH in Sodium Chloride 0.9% 100 ML IVPB SCH (22:49)
[2021-12-05] MEDS: Albuterol 200 PUFF (6.7GM INHALER) INH SCH ×5 (02:22→23:04)
[2021-12-05 04:50] LABS: Anion Gap 16 mmol/L (10-20); BUN (Urea Nitrogen) 44 mg/dL (8.4-25.7); Calc. Creatinine Clearance 23 mL/min (70-130); Calcium 7.4 mg/dL (7.8-10.44); Carbon Dioxide 25 mmol/L (23-31); Chloride 98 mmol/L (98-107); Glucose 175 mg/dL (83-110); Potassium 4.1 mmol/L (3.5-5.1); Sodium 135 mmol/L (136-145)
[2021-12-05] MEDS: Nitroglycerin 2% Ointment 1 INCH/1 GM Packet TOP SCH ×3 (06:21→20:05)
[2021-12-05] MEDS: HumaLOG 300 UNITS/3 ML VIAL SC PRN ×3 (06:43→17:03)
[2021-12-05] MEDS: Pantoprazole 80 MG, Admixture Fee 1 EACH in Sodium Chloride 0.9% 100 ML IVPB SCH ×2 (08:34→17:01)
[2021-12-05] MEDS: FLUoxetine HCl 20 MG CAP PO SCH (08:37)
[2021-12-05 11:12] LABS: #Eosinphils 0.1 thou/uL (0.0-0.7); #Lymphocytes 0.9 thou/uL (1.20-3.40); #Monocytes 0.9 thou/uL (0.11-0.59); #Neutrophils 11.8 thou/uL (1.40-6.50); %Basophils 0.1 % (0.0-1.0); %Eosinophils 0.8 % (0.0-10.0); %Lymphocytes 6.8 % (21.0-51.0); %Monocytes 6.6 % (0.0-10.0); %Neutrophils 85.7 % (42.0-75.0); Hemoglobin 9.1 g/dL (14.0-18.0); Mean Corpuscular HGB CONC 34.3 g/dL (32.0-36.0); Mean Corpuscular Hemoglobin 29.3 pg (27.0-31.0); Mean Corpuscular Volume 85.4 fL (78.0-98.0); Mean Platelet Volume 6.3 fL (7.4-10.4); Platelet Count 164 thou/uL (130-400); RBC Distribution Width 13.4 % (11.5-14.5); Red Blood Cell (RBC) Count 3.12 mill/uL (4.70-6.10); White Blood Cell (WBC) Count 13.8 thou/uL (4.8-10.8)
[2021-12-05 11:22] LABS: Glucose 214 mg/dL (83-110)
[2021-12-05 15:14] LABS: Cytoplasmic (C-ANCA) <1:20 titer (Neg:<1:20); Myeloperoxidase AutoAbs <9.0 U/mL (0.0-9.0); Perinuclear (P-ANCA) <1:20 titer (Neg:<1:20)
[2021-12-05 16:43] LABS: Glucose 159 mg/dL (83-110)
[2021-12-05] MEDS: Atorvastatin Calcium 40 MG TAB PO SCH (20:05)
[2021-12-05] MEDS: GUAIFENESIN SF SOLN 200 MG/10 ML UDCUP PO PRN (22:04)
[2021-12-06] MEDS: Albuterol 200 PUFF (6.7GM INHALER) INH SCH ×6 (03:13→20:31)
[2021-12-06] MEDS: Pantoprazole 80 MG, Admixture Fee 1 EACH in Sodium Chloride 0.9% 100 ML IVPB SCH ×2 (03:40→13:13)
[2021-12-06] MEDS: Nitroglycerin 2% Ointment 1 INCH/1 GM Packet TOP SCH ×3 (04:14→20:31)
[2021-12-06] MEDS: GUAIFENESIN SF SOLN 200 MG/10 ML UDCUP PO PRN (04:14)
[2021-12-06 04:51] LABS: #Eosinphils 0.2 thou/uL (0.0-0.7); #Lymphocytes 0.6 thou/uL (1.20-3.40); #Monocytes 0.6 thou/uL (0.11-0.59); #Neutrophils 10.3 thou/uL (1.40-6.50); %Basophils 0.1 % (0.0-1.0); %Eosinophils 1.6 % (0.0-10.0); %Monocytes 5.4 % (0.0-10.0); %Neutrophils 87.8 % (42.0-75.0); Hemoglobin 8.3 g/dL (14.0-18.0); Mean Corpuscular HGB CONC 34.8 g/dL (32.0-36.0); Mean Corpuscular Hemoglobin 29.8 pg (27.0-31.0); Mean Corpuscular Volume 85.7 fL (78.0-98.0); Mean Platelet Volume 6.4 fL (7.4-10.4); Platelet Count 141 thou/uL (130-400); RBC Distribution Width 13.3 % (11.5-14.5); Red Blood Cell (RBC) Count 2.78 mill/uL (4.70-6.10); White Blood Cell (WBC) Count 11.7 thou/uL (4.8-10.8)
[2021-12-06 05:12] LABS: Anion Gap 15 mmol/L (10-20); BUN (Urea Nitrogen) 63 mg/dL (8.4-25.7); Calc. Creatinine Clearance 16 mL/min (70-130); Carbon Dioxide 25 mmol/L (23-31); Chloride 96 mmol/L (98-107); Glucose 140 mg/dL (83-110); Potassium 3.8 mmol/L (3.5-5.1); Sodium 132 mmol/L (136-145)
[2021-12-06] MEDS ORDERED: Heparin 10,000 UNITS/ 10 ML VIAL ONE (08:57)
[2021-12-06] MEDS: FLUoxetine HCl 20 MG CAP PO SCH (09:05)
[2021-12-06] MEDS: EPOETIN ALFA-EPBX (ESRD) 10,000 UNIT/ML VIAL IVP SCH (13:13)
[2021-12-06] MEDS: HumaLOG 300 UNITS/3 ML VIAL SC PRN (17:54)
[2021-12-06] MEDS: Acetaminophen 650 MG/20.3 ML UDCUP PO PRN (17:54)
[2021-12-06] MEDS: Atorvastatin Calcium 40 MG TAB PO SCH (20:30)
[2021-12-07] MEDS: Albuterol 200 PUFF (6.7GM INHALER) INH SCH ×6 (02:08→22:01)
[2021-12-07] MEDS: Acetaminophen 650 MG/20.3 ML UDCUP PO PRN (03:08)
[2021-12-07] MEDS: Pantoprazole 80 MG, Admixture Fee 1 EACH in Sodium Chloride 0.9% 100 ML IVPB SCH ×2 (03:09→11:44)
[2021-12-07] MEDS: GUAIFENESIN SF SOLN 200 MG/10 ML UDCUP PO PRN (03:09)
[2021-12-07 05:11] LABS: Anion Gap 14 mmol/L (10-20); BUN (Urea Nitrogen) 35 mg/dL (8.4-25.7); Calc. Creatinine Clearance 21 mL/min (70-130); Calcium 6.9 mg/dL (7.8-10.44); Carbon Dioxide 24 mmol/L (23-31); Chloride 99 mmol/L (98-107); Glucose 196 mg/dL (83-110); Potassium 3.5 mmol/L (3.5-5.1); Sodium 133 mmol/L (136-145)
[2021-12-07] MEDS: Nitroglycerin 2% Ointment 1 INCH/1 GM Packet TOP SCH ×3 (05:34→21:19)
[2021-12-07 07:59] LABS: #Eosinphils 0.2 thou/uL (0.0-0.7); #Lymphocytes 0.5 thou/uL (1.20-3.40); #Monocytes 0.6 thou/uL (0.11-0.59); %Basophils 0.1 % (0.0-1.0); %Eosinophils 1.9 % (0.0-10.0); %Lymphocytes 5.7 % (21.0-51.0); %Monocytes 6.7 % (0.0-10.0); %Neutrophils 85.6 % (42.0-75.0); Hemoglobin 8.2 g/dL (14.0-18.0); Mean Corpuscular HGB CONC 33.7 g/dL (32.0-36.0); Mean Corpuscular Hemoglobin 29.2 pg (27.0-31.0); Mean Corpuscular Volume 86.8 fL (78.0-98.0); Mean Platelet Volume 6.4 fL (7.4-10.4); Platelet Count 128 thou/uL (130-400); RBC Distribution Width 13.7 % (11.5-14.5); Red Blood Cell (RBC) Count 2.82 mill/uL (4.70-6.10); White Blood Cell (WBC) Count 9.3 thou/uL (4.8-10.8)
[2021-12-07] MEDS: FLUoxetine HCl 20 MG CAP PO SCH (08:13)
[2021-12-07] MEDS: Lorazepam 0.5 MG TAB PO PRN ×2 (14:55→21:19)
[2021-12-07] MEDS ORDERED: Tuberculin PPD 0.1 ML VIAL I-DERMAL SCH (19:30)
[2021-12-07] MEDS: Calcium Carbonate 600 MG + Vit D TAB PO SCH (21:19)
[2021-12-07] MEDS: Atorvastatin Calcium 40 MG TAB PO SCH (21:19)
[2021-12-07] MEDS: Pantoprazole 40 MG VIAL IVP SCH (21:19)
[2021-12-08] MEDS: Albuterol 200 PUFF (6.7GM INHALER) INH SCH ×6 (03:41→23:10)
[2021-12-08] MEDS: Nitroglycerin 2% Ointment 1 INCH/1 GM Packet TOP SCH ×3 (05:52→20:19)
[2021-12-08 06:44] LABS: Anion Gap 14 mmol/L (10-20); BUN (Urea Nitrogen) 40 mg/dL (8.4-25.7); Calc. Creatinine Clearance 17 mL/min (70-130); Calcium 7.1 mg/dL (7.8-10.44); Carbon Dioxide 26 mmol/L (23-31); Chloride 96 mmol/L (98-107); Glucose 154 mg/dL (83-110); Potassium 3.2 mmol/L (3.5-5.1); Sodium 133 mmol/L (136-145)
[2021-12-08] MEDS: Pantoprazole 40 MG VIAL IVP SCH ×2 (08:31→20:26)
[2021-12-08] MEDS: FLUoxetine HCl 20 MG CAP PO SCH (08:33)
[2021-12-08] MEDS: Calcium Carbonate 600 MG + Vit D TAB PO SCH ×2 (08:33→20:19)
[2021-12-08] MEDS ORDERED: Heparin 10,000 UNITS/ 10 ML VIAL ONE (09:02)
[2021-12-08] MEDS: hydrALAZINE 20 MG/ML VIAL SLOW IVP PRN (11:40)
[2021-12-08] MEDS: EPOETIN ALFA-EPBX (ESRD) 10,000 UNIT/ML VIAL IVP SCH (15:23)
[2021-12-08] MEDS: Lorazepam 0.5 MG TAB PO PRN (20:19)
[2021-12-08] MEDS: Atorvastatin Calcium 40 MG TAB PO SCH (20:19)
[2021-12-08] MEDS: Acetaminophen 650 MG/20.3 ML UDCUP PO PRN (20:21)
[2021-12-09] MEDS: Albuterol 200 PUFF (6.7GM INHALER) INH SCH ×6 (02:40→22:23)
[2021-12-09] MEDS: Nitroglycerin 2% Ointment 1 INCH/1 GM Packet TOP SCH ×3 (05:45→21:09)
[2021-12-09 06:57] LABS: Anion Gap 15 mmol/L (10-20); BUN (Urea Nitrogen) 30 mg/dL (8.4-25.7); Calc. Creatinine Clearance 19 mL/min (70-130); Calcium 7.2 mg/dL (7.8-10.44); Carbon Dioxide 24 mmol/L (23-31); Chloride 98 mmol/L (98-107); Glucose 153 mg/dL (83-110); Potassium 3.4 mmol/L (3.5-5.1); Sodium 134 mmol/L (136-145)
[2021-12-09] MEDS: FLUoxetine HCl 20 MG CAP PO SCH (08:58)
[2021-12-09] MEDS: Pantoprazole 40 MG VIAL IVP SCH ×2 (08:58→21:09)
[2021-12-09] MEDS: Calcium Carbonate 600 MG + Vit D TAB PO SCH ×2 (08:58→21:09)
[2021-12-09] MEDS: Tuberculin PPD 0.1 ML VIAL I-DERMAL SCH (18:02)
[2021-12-09] MEDS: Atorvastatin Calcium 40 MG TAB PO SCH (21:09)
[2021-12-09] MEDS: Senokot S 8.6-50 MG TAB PO SCH (21:14)
[2021-12-09] MEDS ORDERED: Polyethylene Glycol 3350 17 GM Packet PO SCH (21:15)
[2021-12-10] MEDS: Albuterol 200 PUFF (6.7GM INHALER) INH SCH ×6 (02:49→22:11)
[2021-12-10] MEDS: Nitroglycerin 2% Ointment 1 INCH/1 GM Packet TOP SCH ×3 (04:25→20:22)
[2021-12-10] MEDS: READ PPD TEST SITE PO SCH ×2 (07:10→21:00)
[2021-12-10] MEDS: Calcium Carbonate 600 MG + Vit D TAB PO SCH ×2 (08:57→20:22)
[2021-12-10] MEDS: Polyethylene Glycol 3350 17 GM Packet PO SCH (08:57)
[2021-12-10] MEDS: FLUoxetine HCl 20 MG CAP PO SCH (08:57)
[2021-12-10] MEDS: Amlodipine 5 MG TAB PO SCH (08:57)
[2021-12-10] MEDS: Senokot S 8.6-50 MG TAB PO SCH ×2 (08:57→20:22)
[2021-12-10] MEDS: Pantoprazole 40 MG VIAL IVP SCH ×2 (08:57→21:23)
[2021-12-10 13:09] LABS: Glomerular Basmt Membrane ABS Less than 20 units (Negative 0-20)
[2021-12-10] MEDS: Tuberculin PPD 0.1 ML VIAL I-DERMAL SCH (15:23)
[2021-12-10] MEDS: Atorvastatin Calcium 40 MG TAB PO SCH (20:22)
[2021-12-10] MEDS: Lorazepam 0.5 MG TAB PO SCH (20:23)
[2021-12-11] MEDS: Albuterol 200 PUFF (6.7GM INHALER) INH SCH ×6 (06:01→22:06)
[2021-12-11] MEDS: Nitroglycerin 2% Ointment 1 INCH/1 GM Packet TOP SCH ×3 (06:03→20:43)
[2021-12-11 07:31] LABS: Anion Gap 16 mmol/L (10-20); BUN (Urea Nitrogen) 40 mg/dL (8.4-25.7); Calc. Creatinine Clearance 14 mL/min (70-130); Calcium 6.9 mg/dL (7.8-10.44); Carbon Dioxide 23 mmol/L (23-31); Chloride 96 mmol/L (98-107); Glucose 154 mg/dL (83-110); Magnesium 1.5 mg/dL (1.6-2.6); Phosphorus 3.2 mg/dL (2.3-4.7); Potassium 3.4 mmol/L (3.5-5.1); Sodium 132 mmol/L (136-145)
[2021-12-11] MEDS: Lorazepam 0.5 MG TAB PO SCH (07:44)
[2021-12-11] MEDS: Pantoprazole 40 MG VIAL IVP SCH ×2 (07:44→20:43)
[2021-12-11] MEDS: Calcium Carbonate 600 MG + Vit D TAB PO SCH ×2 (07:44→20:44)
[2021-12-11] MEDS: Amlodipine 5 MG TAB PO SCH (07:45)
[2021-12-11] MEDS: FLUoxetine HCl 20 MG CAP PO SCH (07:45)
[2021-12-11] MEDS: Senokot S 8.6-50 MG TAB PO SCH ×2 (07:45→20:44)
[2021-12-11] MEDS: Polyethylene Glycol 3350 17 GM Packet PO SCH (07:45)
[2021-12-11] MEDS: Tuberculin PPD 0.1 ML VIAL I-DERMAL SCH (13:43)
[2021-12-11] MEDS: EPOETIN ALFA-EPBX (ESRD) 10,000 UNIT/ML VIAL IVP SCH (13:45)
[2021-12-11] MEDS ORDERED: Heparin 10,000 UNITS/ 10 ML VIAL ONE (14:10)
[2021-12-11 16:33] LABS: #Eosinphils 0.1 thou/uL (0.0-0.7); #Lymphocytes 0.6 thou/uL (1.20-3.40); #Monocytes 0.4 thou/uL (0.11-0.59); #Neutrophils 5.8 thou/uL (1.40-6.50); %Basophils 0.1 % (0.0-1.0); %Eosinophils 1.7 % (0.0-10.0); %Monocytes 6.3 % (0.0-10.0); %Neutrophils 83.9 % (42.0-75.0); Hemoglobin 8.8 g/dL (14.0-18.0); Mean Corpuscular HGB CONC 33.5 g/dL (32.0-36.0); Mean Corpuscular Hemoglobin 29.2 pg (27.0-31.0); Mean Corpuscular Volume 87.4 fL (78.0-98.0); Mean Platelet Volume 6.3 fL (7.4-10.4); Platelet Count 129 thou/uL (130-400); RBC Distribution Width 14.3 % (11.5-14.5); Red Blood Cell (RBC) Count 3.01 mill/uL (4.70-6.10)
[2021-12-11] MEDS: Atorvastatin Calcium 40 MG TAB PO SCH (20:44)
[2021-12-11] MEDS: Melatonin 3 MG TAB PO SCH (20:47)
[2021-12-12] MEDS: Albuterol 200 PUFF (6.7GM INHALER) INH SCH ×6 (03:41→20:57)
[2021-12-12] MEDS: Nitroglycerin 2% Ointment 1 INCH/1 GM Packet TOP SCH ×3 (04:38→20:58)
[2021-12-12 05:53] LABS: #Eosinphils 0.2 thou/uL (0.0-0.7); #Lymphocytes 0.6 thou/uL (1.20-3.40); #Monocytes 0.4 thou/uL (0.11-0.59); #Neutrophils 4.4 thou/uL (1.40-6.50); %Lymphocytes 10.4 % (21.0-51.0); %Monocytes 7.4 % (0.0-10.0); %Neutrophils 78.2 % (42.0-75.0); Hemoglobin 6.8 g/dL (14.0-18.0); Mean Corpuscular HGB CONC 33.4 g/dL (32.0-36.0); Mean Corpuscular Hemoglobin 29.4 pg (27.0-31.0); Mean Corpuscular Volume 88.1 fL (78.0-98.0); Mean Platelet Volume 6.8 fL (7.4-10.4); Platelet Count 124 thou/uL (130-400); RBC Distribution Width 14.5 % (11.5-14.5); Red Blood Cell (RBC) Count 2.32 mill/uL (4.70-6.10); White Blood Cell (WBC) Count 5.7 thou/uL (4.8-10.8)
[2021-12-12 06:19] LABS: Anion Gap 14 mmol/L (10-20); BUN (Urea Nitrogen) 31 mg/dL (8.4-25.7); Calc. Creatinine Clearance 17 mL/min (70-130); Calcium 7.1 mg/dL (7.8-10.44); Carbon Dioxide 24 mmol/L (23-31); Chloride 100 mmol/L (98-107); Glucose 132 mg/dL (83-110); Magnesium 1.6 mg/dL (1.6-2.6); Phosphorus 3.2 mg/dL (2.3-4.7); Potassium 3.4 mmol/L (3.5-5.1); Sodium 135 mmol/L (136-145)
[2021-12-12] MEDS: Polyethylene Glycol 3350 17 GM Packet PO SCH (08:15)
[2021-12-12] MEDS: Calcium Carbonate 600 MG + Vit D TAB PO SCH ×2 (08:15→20:57)
[2021-12-12] MEDS: Folic Acid 1 MG TAB PO SCH (08:15)
[2021-12-12] MEDS: Senokot S 8.6-50 MG TAB PO SCH ×2 (08:15→20:57)
[2021-12-12] MEDS: FLUoxetine HCl 20 MG CAP PO SCH (08:15)
[2021-12-12] MEDS: Pantoprazole 40 MG VIAL IVP SCH ×2 (08:15→20:57)
[2021-12-12] MEDS: Amlodipine 5 MG TAB PO SCH (08:15)
[2021-12-12 10:11] LABS: Hemoglobin 7.6 g/dL (14.0-18.0)
[2021-12-12 10:13] LABS: INR-International Normal Ratio 1.3; PTT 39.5 sec (22.9-36.1); Prothrombin Time 16.7 sec (12.0-14.7)
[2021-12-12 10:59] LABS: Syphilis Antibody Nonreactive (Nonreactive); Syphilis Antibody Index 0.06 S/CO (<1.00 Non-Reactive)
[2021-12-12] MEDS ORDERED: Xylocaine 1% w/ Epi 1:100K 10 ML VIAL ONE (11:00)
[2021-12-12] MEDS ORDERED: Heparin 10,000 UNITS/ 10 ML VIAL ONE (11:00)
[2021-12-12] MEDS ORDERED: Bupivacaine 0.25% 10 ML VIAL ONE ×2 (11:00)
[2021-12-12] MEDS: Tuberculin PPD 0.1 ML VIAL I-DERMAL SCH (14:49)
[2021-12-12] MEDS: Melatonin 3 MG TAB PO SCH (20:57)
[2021-12-12] MEDS: Atorvastatin Calcium 40 MG TAB PO SCH (20:57)
[2021-12-13] MEDS: Albuterol 200 PUFF (6.7GM INHALER) INH SCH ×6 (02:49→21:06)
[2021-12-13] MEDS: Nitroglycerin 2% Ointment 1 INCH/1 GM Packet TOP SCH ×2 (05:35→13:12)
[2021-12-13] MEDS: Amlodipine 5 MG TAB PO SCH (08:15)
[2021-12-13] MEDS: Polyethylene Glycol 3350 17 GM Packet PO SCH (08:16)
[2021-12-13] MEDS: FLUoxetine HCl 20 MG CAP PO SCH (08:16)
[2021-12-13] MEDS: Calcium Carbonate 600 MG + Vit D TAB PO SCH ×2 (08:16→21:05)
[2021-12-13] MEDS: Senokot S 8.6-50 MG TAB PO SCH ×2 (08:16→21:05)
[2021-12-13] MEDS: Pantoprazole 40 MG VIAL IVP SCH ×2 (08:16→21:05)
[2021-12-13] MEDS: Folic Acid 1 MG TAB PO SCH (08:16)
[2021-12-13 08:51] LABS: #Eosinphils 0.2 thou/uL (0.0-0.7); #Lymphocytes 0.6 thou/uL (1.20-3.40); #Monocytes 0.4 thou/uL (0.11-0.59); %Basophils 0.4 % (0.0-1.0); %Eosinophils 3.3 % (0.0-10.0); %Lymphocytes 8.9 % (21.0-51.0); %Monocytes 6.5 % (0.0-10.0); Hemoglobin 8.2 g/dL (14.0-18.0); Mean Corpuscular HGB CONC 33.8 g/dL (32.0-36.0); Mean Corpuscular Hemoglobin 29.5 pg (27.0-31.0); Mean Corpuscular Volume 87.3 fL (78.0-98.0); Mean Platelet Volume 6.3 fL (7.4-10.4); Platelet Count 134 thou/uL (130-400); RBC Distribution Width 14.1 % (11.5-14.5); Red Blood Cell (RBC) Count 2.78 mill/uL (4.70-6.10); White Blood Cell (WBC) Count 6.2 thou/uL (4.8-10.8)
[2021-12-13 09:12] LABS: Anion Gap 14 mmol/L (10-20); BUN (Urea Nitrogen) 35 mg/dL (8.4-25.7); Calc. Creatinine Clearance 14 mL/min (70-130); Calcium 7.1 mg/dL (7.8-10.44); Carbon Dioxide 27 mmol/L (23-31); Chloride 100 mmol/L (98-107); Glucose 130 mg/dL (83-110); Magnesium 1.6 mg/dL (1.6-2.6); Phosphorus 3.6 mg/dL (2.3-4.7); Potassium 3.5 mmol/L (3.5-5.1); Sodium 137 mmol/L (136-145)
[2021-12-13 09:31] LABS: HIV (1/2) Antibody/Antigen Non-Reactive (NonReactive); HIV 1/2 INDEX 0.08 S/CO (<1.00)
[2021-12-13] MEDS: EPOETIN ALFA-EPBX (ESRD) 10,000 UNIT/ML VIAL IVP SCH (14:19)
[2021-12-13] MEDS ORDERED: Amlodipine 5 MG TAB PO SCH (15:30)
[2021-12-13] MEDS: Melatonin 3 MG TAB PO SCH (21:05)
[2021-12-13] MEDS: Atorvastatin Calcium 40 MG TAB PO SCH (21:05)
[2021-12-14] MEDS: Albuterol 200 PUFF (6.7GM INHALER) INH SCH ×5 (01:44→22:18)
[2021-12-14 06:04] LABS: #Eosinphils 0.2 thou/uL (0.0-0.7); #Lymphocytes 0.5 thou/uL (1.20-3.40); #Monocytes 0.4 thou/uL (0.11-0.59); #Neutrophils 4.5 thou/uL (1.40-6.50); %Basophils 0.4 % (0.0-1.0); %Eosinophils 3.3 % (0.0-10.0); %Lymphocytes 9.7 % (21.0-51.0); %Monocytes 6.9 % (0.0-10.0); %Neutrophils 79.7 % (42.0-75.0); Hemoglobin 7.5 g/dL (14.0-18.0); Mean Corpuscular HGB CONC 33.6 g/dL (32.0-36.0); Mean Corpuscular Hemoglobin 29.4 pg (27.0-31.0); Mean Corpuscular Volume 87.2 fL (78.0-98.0); Mean Platelet Volume 6.2 fL (7.4-10.4); Platelet Count 130 thou/uL (130-400); Red Blood Cell (RBC) Count 2.56 mill/uL (4.70-6.10); White Blood Cell (WBC) Count 5.6 thou/uL (4.8-10.8)
[2021-12-14 06:26] LABS: Anion Gap 16 mmol/L (10-20); BUN (Urea Nitrogen) 37 mg/dL (8.4-25.7); Calc. Creatinine Clearance 14 mL/min (70-130); Calcium 7.2 mg/dL (7.8-10.44); Carbon Dioxide 24 mmol/L (23-31); Chloride 98 mmol/L (98-107); Glucose 132 mg/dL (83-110); Magnesium 1.5 mg/dL (1.6-2.6); Phosphorus 3.6 mg/dL (2.3-4.7); Potassium 3.4 mmol/L (3.5-5.1); Sodium 135 mmol/L (136-145)
[2021-12-14] MEDS: Polyethylene Glycol 3350 17 GM Packet PO SCH (09:05)
[2021-12-14] MEDS: FLUoxetine HCl 20 MG CAP PO SCH (09:15)
[2021-12-14] MEDS: Amlodipine 10 MG TAB PO SCH (09:15)
[2021-12-14] MEDS: Calcium Carbonate 600 MG + Vit D TAB PO SCH ×2 (09:15→20:33)
[2021-12-14] MEDS: Folic Acid 1 MG TAB PO SCH (09:15)
[2021-12-14] MEDS: Pantoprazole 40 MG VIAL IVP SCH ×2 (09:15→20:34)
[2021-12-14] MEDS: Senokot S 8.6-50 MG TAB PO SCH ×2 (09:15→20:32)
[2021-12-14] MEDS ORDERED: Heparin 10,000 UNITS/ 10 ML VIAL ONE ×2 (12:39→12:51)
[2021-12-14] MEDS ORDERED: Bupivacaine 0.25% HCL 30 ML VIAL ONE ×2 (12:39→12:51)
[2021-12-14] MEDS ORDERED: Xylocaine 1% w/ Epi 1:100K 10 ML VIAL ONE ×2 (12:39→12:51)
[2021-12-14] MEDS ORDERED: Sodium Chloride 0.9% 10 ML ONE (12:39)
[2021-12-14] MEDS ORDERED: Fentanyl 100 MCG/2 ML VIAL ONE (12:41)
[2021-12-14] MEDS ORDERED: PROPOFOL 40 ML ONE (12:41)
[2021-12-14] MEDS ORDERED: Famotidine/PF 20 mg/2ml Vial ONE (12:41)
[2021-12-14] MEDS ORDERED: Sodium Chloride 0.9% 20 ML ONE (12:51)
[2021-12-14] MEDS ORDERED: PHENYLEPHRINE-NS 100 MCG/ML 10 ML SYRINGE ONE (13:44)
[2021-12-14] MEDS ORDERED: PROPOFOL 200 MG/20 ML VIAL ONE (13:44)
[2021-12-14] MEDS ORDERED: Ondansetron PF 4 MG/2 ML Vial ONE (13:44)
[2021-12-14] MEDS ORDERED: ePHEDrine 50 MG/ML VIAL ONE (13:44)
[2021-12-14] MEDS ORDERED: Lidocaine 1% PF 5 ML VIAL ONE (13:44)
[2021-12-14] MEDS ORDERED: Magnesium Sulfate 4 GM in Sodium Chloride 0.9% 250 ML 250 ML IVPB SCH (15:15)
[2021-12-14] MEDS ORDERED: Acetaminophen 650 MG/20.3 ML UDCUP PO PRN (18:40)
[2021-12-14] MEDS: Atorvastatin Calcium 40 MG TAB PO SCH (20:32)
[2021-12-14] MEDS: Melatonin 3 MG TAB PO SCH (20:33)
[2021-12-14] MEDS ORDERED: Sterile Water 10 ML VIAL FS PRN (23:45)
[2021-12-14] MEDS ORDERED: OLANZapine 10 MG VIAL IM SCH (23:59)
[2021-12-15] MEDS: Albuterol 200 PUFF (6.7GM INHALER) INH SCH ×4 (02:18→22:30)
[2021-12-15] MEDS ORDERED: OLANZapine 10 MG VIAL IM SCH (05:30)
[2021-12-15 06:57] LABS: #Eosinphils 0.2 thou/uL (0.0-0.7); #Lymphocytes 0.5 thou/uL (1.20-3.40); #Monocytes 0.4 thou/uL (0.11-0.59); #Neutrophils 3.4 thou/uL (1.40-6.50); %Basophils 0.4 % (0.0-1.0); %Eosinophils 3.6 % (0.0-10.0); %Lymphocytes 10.9 % (21.0-51.0); %Monocytes 8.6 % (0.0-10.0); %Neutrophils 76.5 % (42.0-75.0); Hemoglobin 8.2 g/dL (14.0-18.0); Mean Corpuscular HGB CONC 32.2 g/dL (32.0-36.0); Mean Corpuscular Hemoglobin 28.3 pg (27.0-31.0); Mean Platelet Volume 6.3 fL (7.4-10.4); Platelet Count 137 thou/uL (130-400); RBC Distribution Width 13.9 % (11.5-14.5); Red Blood Cell (RBC) Count 2.88 mill/uL (4.70-6.10); White Blood Cell (WBC) Count 4.5 thou/uL (4.8-10.8)
[2021-12-15 07:11] LABS: Anion Gap 17 mmol/L (10-20); BUN (Urea Nitrogen) 42 mg/dL (8.4-25.7); Calc. Creatinine Clearance 13 mL/min (70-130); Calcium 7.4 mg/dL (7.8-10.44); Carbon Dioxide 22 mmol/L (23-31); Chloride 100 mmol/L (98-107); Glucose 108 mg/dL (83-110); Magnesium 2.6 mg/dL (1.6-2.6); Phosphorus 4.3 mg/dL (2.3-4.7); Potassium 3.7 mmol/L (3.5-5.1); Sodium 135 mmol/L (136-145)
[2021-12-15] MEDS: FLUoxetine HCl 20 MG CAP PO SCH (10:43)
[2021-12-15] MEDS: Folic Acid 1 MG TAB PO SCH (10:43)
[2021-12-15] MEDS: Amlodipine 10 MG TAB PO SCH (10:43)
[2021-12-15] MEDS: Calcium Carbonate 600 MG + Vit D TAB PO SCH ×2 (10:43→23:34)
[2021-12-15] MEDS: Pantoprazole 40 MG VIAL IVP SCH ×2 (10:44→21:33)
[2021-12-15] MEDS: Senokot S 8.6-50 MG TAB PO SCH ×2 (10:44→22:20)
[2021-12-15] MEDS: Polyethylene Glycol 3350 17 GM Packet PO SCH (10:44)
[2021-12-15] MEDS: EPOETIN ALFA-EPBX (ESRD) 10,000 UNIT/ML VIAL IVP SCH (12:08)
[2021-12-15] MEDS ORDERED: Heparin 10,000 UNITS/ 10 ML VIAL ONE (12:13)
[2021-12-15] MEDS ORDERED: Dextrose 50% Abboject 50 ML SYRINGE SLOW IVP PRN (20:44)
[2021-12-15] MEDS ORDERED: Dextrose 5% in Water 1,000 ML IV PRN (20:45)
[2021-12-15] MEDS ORDERED: HumaLOG 300 UNITS/3 ML VIAL SC PRN ×2 (20:47)
[2021-12-15] MEDS ORDERED: hydrALAZINE 20 MG/ML VIAL SLOW IVP PRN (20:48)
[2021-12-15] MEDS ORDERED: GUAIFENESIN SF SOLN 200 MG/10 ML UDCUP PO PRN (20:48)
[2021-12-15] MEDS ORDERED: Acetaminophen 650 MG/20.3 ML UDCUP PO PRN (20:48)
[2021-12-15] MEDS ORDERED: Sterile Water 10 ML VIAL FS PRN (20:52)
[2021-12-15] MEDS ORDERED: EPOETIN ALFA-EPBX (ESRD) 10,000 UNIT/ML VIAL IVP SCH (21:00)
[2021-12-15] MEDS: Melatonin 3 MG TAB PO SCH ×2 (22:20→23:34)
[2021-12-15] MEDS: Atorvastatin Calcium 40 MG TAB PO SCH (23:34)
[2021-12-16] MEDS: Albuterol 200 PUFF (6.7GM INHALER) INH SCH ×5 (02:40→18:48)
[2021-12-16] MEDS: Folic Acid 1 MG TAB PO SCH ×2 (08:24→17:56)
[2021-12-16] MEDS: Calcium Carbonate 600 MG + Vit D TAB PO SCH ×3 (08:24→20:48)
[2021-12-16] MEDS: Polyethylene Glycol 3350 17 GM Packet PO SCH ×2 (08:25→17:56)
[2021-12-16] MEDS: Pantoprazole 40 MG VIAL IVP SCH ×3 (08:25→20:47)
[2021-12-16] MEDS: FLUoxetine HCl 20 MG CAP PO SCH ×2 (08:25→17:56)
[2021-12-16] MEDS: Amlodipine 10 MG TAB PO SCH ×2 (08:25→17:56)
[2021-12-16] MEDS: Senokot S 8.6-50 MG TAB PO SCH ×2 (13:09→20:47)
[2021-12-16] MEDS: Atorvastatin Calcium 40 MG TAB PO SCH (20:48)
[2021-12-16] MEDS: Melatonin 3 MG TAB PO SCH (20:48)
[2021-12-17] MEDS: Albuterol 200 PUFF (6.7GM INHALER) INH SCH ×7 (00:38→23:15)
[2021-12-17] MEDS: Pantoprazole 40 MG VIAL IVP SCH ×2 (08:55→20:34)
[2021-12-17] MEDS: Calcium Carbonate 600 MG + Vit D TAB PO SCH ×2 (08:56→20:33)
[2021-12-17] MEDS: Folic Acid 1 MG TAB PO SCH (08:58)
[2021-12-17] MEDS: Amlodipine 10 MG TAB PO SCH (08:58)
[2021-12-17] MEDS: FLUoxetine HCl 20 MG CAP PO SCH (08:58)
[2021-12-17] MEDS: Polyethylene Glycol 3350 17 GM Packet PO SCH (08:59)
[2021-12-17] MEDS: Senokot S 8.6-50 MG TAB PO SCH ×3 (09:51→20:33)
[2021-12-17] MEDS: Atorvastatin Calcium 40 MG TAB PO SCH (20:33)
[2021-12-17] MEDS: Melatonin 3 MG TAB PO SCH (20:34)
[2021-12-18] MEDS: Albuterol 200 PUFF (6.7GM INHALER) INH SCH ×6 (04:09→21:25)
[2021-12-18 08:19] LABS: #Eosinphils 0.2 thou/uL (0.0-0.7); #Lymphocytes 0.7 thou/uL (1.20-3.40); #Monocytes 0.5 thou/uL (0.11-0.59); #Neutrophils 3.3 thou/uL (1.40-6.50); %Basophils 0.4 % (0.0-1.0); %Eosinophils 4.6 % (0.0-10.0); %Monocytes 9.8 % (0.0-10.0); %Neutrophils 70.3 % (42.0-75.0); Hemoglobin 7.8 g/dL (14.0-18.0); Mean Corpuscular HGB CONC 32.3 g/dL (32.0-36.0); Mean Corpuscular Hemoglobin 28.4 pg (27.0-31.0); Mean Corpuscular Volume 87.7 fL (78.0-98.0); Mean Platelet Volume 6.2 fL (7.4-10.4); Platelet Count 162 thou/uL (130-400); RBC Distribution Width 13.9 % (11.5-14.5); Red Blood Cell (RBC) Count 2.75 mill/uL (4.70-6.10); White Blood Cell (WBC) Count 4.7 thou/uL (4.8-10.8)
[2021-12-18 08:28] LABS: Anion Gap 14 mmol/L (10-20); BUN (Urea Nitrogen) 34 mg/dL (8.4-25.7); Calc. Creatinine Clearance 15 mL/min (70-130); Calcium 7.5 mg/dL (7.8-10.44); Carbon Dioxide 27 mmol/L (23-31); Chloride 101 mmol/L (98-107); Glucose 134 mg/dL (83-110); Potassium 3.5 mmol/L (3.5-5.1); Sodium 138 mmol/L (136-145)
[2021-12-18] MEDS: EPOETIN ALFA-EPBX (ESRD) 10,000 UNIT/ML VIAL IVP SCH (10:44)
[2021-12-18] MEDS: Pantoprazole 40 MG VIAL IVP SCH (11:27)
[2021-12-18] MEDS: Calcium Carbonate 600 MG + Vit D TAB PO SCH ×2 (11:27→21:18)
[2021-12-18] MEDS ORDERED: Heparin 10,000 UNITS/ 10 ML VIAL ONE (12:16)
[2021-12-18] MEDS: Amlodipine 10 MG TAB PO SCH (14:05)
[2021-12-18] MEDS: Folic Acid 1 MG TAB PO SCH (14:06)
[2021-12-18] MEDS: Senokot S 8.6-50 MG TAB PO SCH ×2 (14:06→21:17)
[2021-12-18] MEDS: FLUoxetine HCl 20 MG CAP PO SCH (14:06)
[2021-12-18] MEDS: Polyethylene Glycol 3350 17 GM Packet PO SCH (14:06)
[2021-12-18] MEDS: Atorvastatin Calcium 40 MG TAB PO SCH (21:18)
[2021-12-18] MEDS: Melatonin 3 MG TAB PO SCH (21:18)
[2021-12-19] MEDS: Albuterol 200 PUFF (6.7GM INHALER) INH SCH ×6 (02:24→20:48)
[2021-12-19] MEDS: FLUoxetine HCl 20 MG CAP PO SCH (08:12)
[2021-12-19] MEDS: Folic Acid 1 MG TAB PO SCH (08:12)
[2021-12-19] MEDS: Senokot S 8.6-50 MG TAB PO SCH ×2 (08:12→20:48)
[2021-12-19] MEDS: Amlodipine 10 MG TAB PO SCH (08:13)
[2021-12-19] MEDS: Calcium Carbonate 600 MG + Vit D TAB PO SCH ×2 (08:13→20:48)
[2021-12-19] MEDS: Polyethylene Glycol 3350 17 GM Packet PO SCH (08:13)
[2021-12-19 19:14] LABS: RMSF IgG (EIA) Negative (Negative); RMSF IgM 1.53 index (0.00-0.89)
[2021-12-19] MEDS: Atorvastatin Calcium 40 MG TAB PO SCH (20:48)
[2021-12-19] MEDS: Melatonin 3 MG TAB PO SCH (20:48)
[2021-12-20] MEDS: Albuterol 200 PUFF (6.7GM INHALER) INH SCH ×6 (02:11→22:05)
[2021-12-20] MEDS: Calcium Carbonate 600 MG + Vit D TAB PO SCH ×2 (08:47→20:17)
[2021-12-20] MEDS: Senokot S 8.6-50 MG TAB PO SCH ×2 (08:47→20:17)
[2021-12-20] MEDS: Folic Acid 1 MG TAB PO SCH (08:47)
[2021-12-20] MEDS: FLUoxetine HCl 20 MG CAP PO SCH (08:47)
[2021-12-20] MEDS: Amlodipine 10 MG TAB PO SCH (08:47)
[2021-12-20] MEDS: Polyethylene Glycol 3350 17 GM Packet PO SCH (08:48)
[2021-12-20] MEDS ORDERED: Heparin 10,000 UNITS/ 10 ML VIAL ONE (10:39)
[2021-12-20] MEDS: EPOETIN ALFA-EPBX (ESRD) 10,000 UNIT/ML VIAL IVP SCH ×2 (13:18→13:41)
[2021-12-20] MEDS: Melatonin 3 MG TAB PO SCH (20:17)
[2021-12-20] MEDS: Atorvastatin Calcium 40 MG TAB PO SCH (20:17)
[2021-12-21] MEDS: Albuterol 200 PUFF (6.7GM INHALER) INH SCH ×6 (03:16→20:59)
[2021-12-21 06:13] LABS: #Eosinphils 0.3 thou/uL (0.0-0.7); #Lymphocytes 1.6 thou/uL (1.20-3.40); #Monocytes 0.7 thou/uL (0.11-0.59); %Basophils 0.7 % (0.0-1.0); %Eosinophils 4.1 % (0.0-10.0); %Lymphocytes 24.4 % (21.0-51.0); %Monocytes 10.9 % (0.0-10.0); Mean Corpuscular HGB CONC 30.6 g/dL (32.0-36.0); Mean Corpuscular Hemoglobin 27.2 pg (27.0-31.0); Mean Platelet Volume 6.2 fL (7.4-10.4); Platelet Count 173 thou/uL (130-400); RBC Distribution Width 14.7 % (11.5-14.5); Red Blood Cell (RBC) Count 2.94 mill/uL (4.70-6.10); White Blood Cell (WBC) Count 6.6 thou/uL (4.8-10.8)
[2021-12-21 06:37] LABS: Anion Gap 14 mmol/L (10-20); BUN (Urea Nitrogen) 16 mg/dL (8.4-25.7); Calc. Creatinine Clearance 24 mL/min (70-130); Calcium 7.8 mg/dL (7.8-10.44); Carbon Dioxide 26 mmol/L (23-31); Chloride 100 mmol/L (98-107); Glucose 127 mg/dL (83-110); Potassium 4.4 mmol/L (3.5-5.1); Sodium 136 mmol/L (136-145)
[2021-12-21] MEDS: Polyethylene Glycol 3350 17 GM Packet PO SCH (08:49)
[2021-12-21] MEDS: Folic Acid 1 MG TAB PO SCH (08:49)
[2021-12-21] MEDS: FLUoxetine HCl 20 MG CAP PO SCH (08:49)
[2021-12-21] MEDS: Senokot S 8.6-50 MG TAB PO SCH ×2 (08:49→21:00)
[2021-12-21] MEDS: Calcium Carbonate 600 MG + Vit D TAB PO SCH ×2 (08:49→21:00)
[2021-12-21] MEDS: Amlodipine 10 MG TAB PO SCH (08:51)
[2021-12-21 11:23] VITALS: BMI 29.7
[2021-12-21] MEDS: Melatonin 3 MG TAB PO SCH (21:00)
[2021-12-21] MEDS: Atorvastatin Calcium 40 MG TAB PO SCH (21:00)
[2021-12-22] MEDS: Albuterol 200 PUFF (6.7GM INHALER) INH SCH ×6 (03:05→22:04)
[2021-12-22] MEDS: Polyethylene Glycol 3350 17 GM Packet PO SCH (09:01)
[2021-12-22] MEDS: Senokot S 8.6-50 MG TAB PO SCH ×2 (09:01→21:34)
[2021-12-22] MEDS: Amlodipine 10 MG TAB PO SCH (10:44)
[2021-12-22] MEDS: Calcium Carbonate 600 MG + Vit D TAB PO SCH ×2 (10:44→21:32)
[2021-12-22] MEDS: Folic Acid 1 MG TAB PO SCH (10:44)
[2021-12-22] MEDS: FLUoxetine HCl 20 MG CAP PO SCH (10:44)
[2021-12-22] MEDS ORDERED: Ondansetron PF 4 MG/2 ML Vial IVP PRN (15:31)
[2021-12-22] MEDS ORDERED: Heparin 10,000 UNITS/ 10 ML VIAL ONE (15:44)
[2021-12-22] MEDS: Atorvastatin Calcium 40 MG TAB PO SCH (21:32)
[2021-12-22] MEDS: Melatonin 3 MG TAB PO SCH (21:33)
[2021-12-23] MEDS: Albuterol 200 PUFF (6.7GM INHALER) INH SCH ×6 (02:34→22:04)
[2021-12-23] MEDS: FLUoxetine HCl 20 MG CAP PO SCH (08:46)
[2021-12-23] MEDS: Calcium Carbonate 600 MG + Vit D TAB PO SCH ×2 (08:47→20:24)
[2021-12-23] MEDS: Folic Acid 1 MG TAB PO SCH (08:48)
[2021-12-23] MEDS: Amlodipine 10 MG TAB PO SCH (08:50)
[2021-12-23] MEDS: Senokot S 8.6-50 MG TAB PO SCH ×2 (08:51→20:24)
[2021-12-23] MEDS: Polyethylene Glycol 3350 17 GM Packet PO SCH (08:51)
[2021-12-23] MEDS: Atorvastatin Calcium 40 MG TAB PO SCH (20:24)
[2021-12-23] MEDS: Melatonin 3 MG TAB PO SCH (20:25)
[2021-12-24] MEDS: Albuterol 200 PUFF (6.7GM INHALER) INH SCH ×6 (03:39→23:57)
[2021-12-24 08:28] LABS: Anion Gap 14 mmol/L (10-20); BUN (Urea Nitrogen) 26 mg/dL (8.4-25.7); Calc. Creatinine Clearance 17 mL/min (70-130); Calcium 7.6 mg/dL (7.8-10.44); Carbon Dioxide 27 mmol/L (23-31); Chloride 98 mmol/L (98-107); Glucose 126 mg/dL (83-110); Potassium 3.5 mmol/L (3.5-5.1); Sodium 135 mmol/L (136-145)
[2021-12-24] MEDS: FLUoxetine HCl 20 MG CAP PO SCH (08:48)
[2021-12-24] MEDS: Folic Acid 1 MG TAB PO SCH (08:48)
[2021-12-24] MEDS: Amlodipine 10 MG TAB PO SCH (08:49)
[2021-12-24] MEDS: Calcium Carbonate 600 MG + Vit D TAB PO SCH ×2 (08:49→21:42)
[2021-12-24] MEDS: Senokot S 8.6-50 MG TAB PO SCH ×2 (08:49→21:42)
[2021-12-24] MEDS: Polyethylene Glycol 3350 17 GM Packet PO SCH (08:52)
[2021-12-24] MEDS: Melatonin 3 MG TAB PO SCH (21:42)
[2021-12-24] MEDS: Atorvastatin Calcium 40 MG TAB PO SCH (21:42)
[2021-12-25] MEDS: Albuterol 200 PUFF (6.7GM INHALER) INH SCH ×2 (02:05→05:52)
[2021-12-25 04:09] LABS: Anion Gap 12 mmol/L (10-20); BUN (Urea Nitrogen) 30 mg/dL (8.4-25.7); Calc. Creatinine Clearance 16 mL/min (70-130); Calcium 7.4 mg/dL (7.8-10.44); Carbon Dioxide 28 mmol/L (23-31); Chloride 98 mmol/L (98-107); Glucose 88 mg/dL (83-110); Potassium 3.4 mmol/L (3.5-5.1); Sodium 135 mmol/L (136-145)
[2021-12-25] MEDS: Amlodipine 10 MG TAB PO SCH (08:40)
[2021-12-25] MEDS: Polyethylene Glycol 3350 17 GM Packet PO SCH (08:40)
[2021-12-25] MEDS: Senokot S 8.6-50 MG TAB PO SCH ×2 (08:40→20:50)
[2021-12-25] MEDS: Folic Acid 1 MG TAB PO SCH (08:40)
[2021-12-25] MEDS: FLUoxetine HCl 20 MG CAP PO SCH (08:40)
[2021-12-25] MEDS: Calcium Carbonate 600 MG + Vit D TAB PO SCH ×2 (08:40→20:49)
[2021-12-25] MEDS ORDERED: Heparin 10,000 UNITS/ 10 ML VIAL ONE (09:55)
[2021-12-25] MEDS ORDERED: EPOETIN ALFA-EPBX (ESRD) 10,000 UNIT/ML VIAL SC SCH (17:00)
[2021-12-25] MEDS: EPOETIN ALFA-EPBX (ESRD) 10,000 UNIT/ML VIAL IVP SCH (17:26)
[2021-12-25] MEDS: Atorvastatin Calcium 40 MG TAB PO SCH (20:49)
[2021-12-25] MEDS: Melatonin 3 MG TAB PO SCH (20:52)
[2021-12-26] MEDS: Albuterol 200 PUFF (6.7GM INHALER) INH SCH ×8 (02:05→23:21)
[2021-12-26] MEDS: FLUoxetine HCl 20 MG CAP PO SCH (09:00)
[2021-12-26] MEDS: Amlodipine 10 MG TAB PO SCH (09:00)
[2021-12-26] MEDS: Senokot S 8.6-50 MG TAB PO SCH ×2 (09:00→20:32)
[2021-12-26] MEDS: Polyethylene Glycol 3350 17 GM Packet PO SCH (09:01)
[2021-12-26] MEDS: Calcium Carbonate 600 MG + Vit D TAB PO SCH ×2 (09:01→20:32)
[2021-12-26] MEDS: Folic Acid 1 MG TAB PO SCH (09:01)
[2021-12-26 11:10] LABS: Hemoglobin 7.8 g/dL (14.0-18.0)
[2021-12-26] MEDS: Melatonin 3 MG TAB PO SCH (20:32)
[2021-12-26] MEDS: Atorvastatin Calcium 40 MG TAB PO SCH (20:32)
[2021-12-27] MEDS: Albuterol 200 PUFF (6.7GM INHALER) INH SCH ×7 (02:53→23:03)
[2021-12-27] MEDS: Calcium Carbonate 600 MG + Vit D TAB PO SCH ×2 (08:07→21:15)
[2021-12-27] MEDS: Senokot S 8.6-50 MG TAB PO SCH ×2 (08:07→21:15)
[2021-12-27] MEDS ORDERED: Heparin 10,000 UNITS/ 10 ML VIAL ONE (09:47)
[2021-12-27] MEDS: Polyethylene Glycol 3350 17 GM Packet PO SCH (13:37)
[2021-12-27] MEDS: Amlodipine 10 MG TAB PO SCH (13:37)
[2021-12-27] MEDS: FLUoxetine HCl 20 MG CAP PO SCH (13:42)
[2021-12-27] MEDS: Folic Acid 1 MG TAB PO SCH (13:42)
[2021-12-27] MEDS: EPOETIN ALFA-EPBX (ESRD) 10,000 UNIT/ML VIAL IVP SCH (13:42)
[2021-12-27] MEDS: Melatonin 3 MG TAB PO SCH (21:14)
[2021-12-27] MEDS: Atorvastatin Calcium 40 MG TAB PO SCH (21:15)
[2021-12-28] MEDS: Albuterol 200 PUFF (6.7GM INHALER) INH SCH ×3 (01:49→10:59)
[2021-12-28] MEDS: FLUoxetine HCl 20 MG CAP PO SCH (08:58)
[2021-12-28] MEDS: Folic Acid 1 MG TAB PO SCH (08:58)
[2021-12-28] MEDS: Calcium Carbonate 600 MG + Vit D TAB PO SCH (08:58)
[2021-12-28] MEDS: Amlodipine 10 MG TAB PO SCH (08:58)
[2021-12-28] MEDS: Polyethylene Glycol 3350 17 GM Packet PO SCH (08:58)
[2021-12-28] MEDS: Senokot S 8.6-50 MG TAB PO SCH (08:58)
[2021-12-28 11:33] LABS: Hemoglobin 8.2 g/dL (14.0-18.0)
[2021-12-28 16:22] VITALS: BP 115/65; TEMP 97.7
== END 2021-12-28 17:10 | DRG 177 ==
LOC: ERS 06:32 → 2SW 09:26 → OBSVTOIN 09:26 → 2SW 12-03 18:15 → CCU 12-04 13:54 → T4-B 12-06 15:59 → ERHOLD 12-07 08:51 → T4-B 12-07 08:55 → UNDODISIN 12-15 15:36
PROVIDERS: ADMIT Family Medicine; ATTEND Family Medicine
PROC: 8E0ZXY6 Isolation (ICD-10-PCS; principal; 2021-11-27)
PROC: 06HY33Z Insertion of Infusion Device into Lower Vein, Percutaneous Approach (ICD-10-PCS; 2021-11-29)
PROC: 5A1D70Z Performance of Urinary Filtration, Intermittent, Less than 6 Hours Per Day (ICD-10-PCS; 2021-11-29)
PROC: 30233N1 Transfusion of Nonautologous Red Blood Cells into Peripheral Vein, Percutaneous Approach (ICD-10-PCS; 2021-12-04)
PROC: 02HV33Z Insertion of Infusion Device into Superior Vena Cava, Percutaneous Approach (ICD-10-PCS; 2021-12-14)
PROC: B548ZZA Ultrasonography of Superior Vena Cava, Guidance (ICD-10-PCS; 2021-12-14)
PROC: 0JH60XZ Insertion of Tunneled Vascular Access Device into Chest Subcutaneous Tissue and Fascia, Open Approach (ICD-10-PCS; 2021-12-14)
DX: U07.1 COVID-19 (principal); J12.82 Pneumonia due to coronavirus disease 2019; J96.01 Acute respiratory failure with hypoxia; N17.0 Acute kidney failure with tubular necrosis; J15.9 Unspecified bacterial pneumonia; K27.4 Chronic or unspecified peptic ulcer, site unspecified, with hemorrhage; N18.6 End stage renal disease; G93.41 Metabolic encephalopathy; N30.01 Acute cystitis with hematuria; E87.1 Hypo-osmolality and hyponatremia; E87.2 Acidosis; D62 Acute posthemorrhagic anemia; E87.0 Hyperosmolality and hypernatremia; I13.2 Hypertensive heart and chronic kidney disease with heart failure and with stage 5 chronic kidney disease, or end stage renal disease; C34.90 Malignant neoplasm of unspecified part of unspecified bronchus or lung; E78.5 Hyperlipidemia, unspecified; G47.33 Obstructive sleep apnea (adult) (pediatric); I25.10 Atherosclerotic heart disease of native coronary artery without angina pectoris; F41.9 Anxiety disorder, unspecified; F32.A Depression, unspecified; E87.5 Hyperkalemia; E11.59 Type 2 diabetes mellitus with other circulatory complications; R91.8 Other nonspecific abnormal finding of lung field; E66.9 Obesity, unspecified; E11.65 Type 2 diabetes mellitus with hyperglycemia; E11.22 Type 2 diabetes mellitus with diabetic chronic kidney disease; D63.1 Anemia in chronic kidney disease; E83.39 Other disorders of phosphorus metabolism; E83.51 Hypocalcemia; S30.811A Abrasion of abdominal wall, initial encounter; W01.0XXA Fall on same level from slipping, tripping and stumbling without subsequent striking against object, initial encounter; D69.6 Thrombocytopenia, unspecified; E53.8 Deficiency of other specified B group vitamins; I50.9 Heart failure, unspecified; Z95.5 Presence of coronary angioplasty implant and graft; Z95.1 Presence of aortocoronary bypass graft; Z90.49 Acquired absence of other specified parts of digestive tract; Z87.891 Personal history of nicotine dependence; Z88.0 Allergy status to penicillin; Z79.84 Long term (current) use of oral hypoglycemic drugs; Z79.82 Long term (current) use of aspirin; Z79.899 Other long term (current) drug therapy; Z79.4 Long term (current) use of insulin; Z68.29 Body mass index [BMI] 29.0-29.9, adult; Z78.1 Physical restraint status
CPT/HCPCS: 36415; 36416; 36430; 51702; 70450; 71045; 71250; 72125; 72170; 72192; 76770; 80048; 80061; 80069; 80076; 81003; 81015; 82306; 82550; 82570; 82607; 82728; 82746; 83516; 83520; 83690; 83735; 83880; 83883; 83970; 84100; 84156; 84165; 84166; 84484; 85014; 85018; 85025; 85379; 85610; 85730; 86038; 86140; 86225; 86256; 86580; 86704; 86706; 86757; 86769; 86780; 86803; 86850; 86900; 86901; 87070; 87086; 87205; 87340; 87389; 90935; 93005; 93010; 93306; 96374; 96375; C1752; C9113; G0257; J0360; J1100; J1642; J1644; J1650; J1815; J1940; J1956; J2270; J2358; J2405; J2704; J3010; J3475; J3490; J7050; J7070; P9016; Q5105; S0020; S0028

== ENCOUNTER 2022-01-26 19:08 | Emergency (ER) | payer MEDICARE ==
[2022-01-26 20:54] LABS: #Eosinphils 0.2 thou/uL (0.0-0.7); #Lymphocytes 1.5 thou/uL (1.20-3.40); #Monocytes 0.8 thou/uL (0.11-0.59); #Neutrophils 5.5 thou/uL (1.40-6.50); %Basophils 0.4 % (0.0-1.0); %Eosinophils 2.2 % (0.0-10.0); %Lymphocytes 18.2 % (21.0-51.0); %Monocytes 10.4 % (0.0-10.0); %Neutrophils 68.8 % (42.0-75.0); Hemoglobin 8.4 g/dL (14.0-18.0); Mean Corpuscular HGB CONC 33.1 g/dL (32.0-36.0); Mean Corpuscular Hemoglobin 29.4 pg (27.0-31.0); Mean Corpuscular Volume 89.1 fL (78.0-98.0); Mean Platelet Volume 6.1 fL (7.4-10.4); Platelet Count 237 thou/uL (130-400); RBC Distribution Width 15.1 % (11.5-14.5); Red Blood Cell (RBC) Count 2.86 mill/uL (4.70-6.10)
[2022-01-26 21:11] LABS: ALT (SGPT) 16 U/L (8-55); AST (SGOT) 13 U/L (5-34); Alkaline Phosphatase 90 U/L (40-110); Anion Gap 13 mmol/L (10-20); BUN (Urea Nitrogen) 18 mg/dL (8.4-25.7); Bilirubin, Total 0.4 mg/dL (0.2-1.2); Calc. Creatinine Clearance 0 mL/min (70-130); Calcium 8.4 mg/dL (7.8-10.44); Carbon Dioxide 27 mmol/L (23-31); Chloride 99 mmol/L (98-107); Globulin 3.7 g/dL (2.4-3.5); Glucose 161 mg/dL (83-110); Magnesium 1.7 mg/dL (1.6-2.6); Potassium 3.4 mmol/L (3.5-5.1); Protein, Total 6.7 g/dL (5.8-8.1); Sodium 136 mmol/L (136-145)
[2022-01-26 21:26] LABS: Bacteria/HPF 4+ HPF (None Seen); Bilirubin Negative (Negative); Blood, Urine 3+ (Negative); Clarity Turbid (Clear); Glucose, Urine (Dipstick) Normal (Negative); Ketone, Urine Negative (Negative); Leukocyte 500 Leu/uL (Negative); Nitrite Negative (Negative); Protein, Urine (Dipstick) 200 mg/dL (Neg-Trace); RBC/HPF Greater than 50 HPF (0-3); Renal Epithelial 0-3 HPF (None Seen); Specific Gravity, Urine 1.013 (1.002-1.036); Squamous Epithelial 0-3 HPF (0-3); Urobilinogen Normal mg/dL (Less than 2); WBC/HPF Greater than 50 HPF (0-3)
[2022-01-26] MEDS ORDERED: cefTRIAXone\\ROCEPHIN 1 GM VIAL ONE (22:02)
== END 2022-01-26 23:29 | disposition home or self-care (01) ==
LOC: ERS 19:08
DX: N39.0 Urinary tract infection, site not specified (principal); N19 Unspecified kidney failure; I49.1 Atrial premature depolarization; I10 Essential (primary) hypertension; E11.9 Type 2 diabetes mellitus without complications; E78.5 Hyperlipidemia, unspecified; G47.30 Sleep apnea, unspecified; Z87.891 Personal history of nicotine dependence; Z95.5 Presence of coronary angioplasty implant and graft; Z79.82 Long term (current) use of aspirin; Z79.84 Long term (current) use of oral hypoglycemic drugs; Z79.899 Other long term (current) drug therapy
CPT/HCPCS: 36415; 70450; 71045; 72125; 80053; 81003; 81015; 83735; 85025; 87077; 87086; 93005; 96365; J0696

== ENCOUNTER 2022-04-08 20:09 | Inpatient (IN) | payer MEDICARE ==
[~2022-04-08 20:09] MED LIST: Iopamidol-370 76% 500 ML 1 ML ONE
[2022-04-08 20:43] LABS: #Eosinphils 0.2 thou/uL (0.0-0.7); #Lymphocytes 0.9 thou/uL (1.20-3.40); #Monocytes 0.6 thou/uL (0.11-0.59); %Basophils 0.1 % (0.0-1.0); %Eosinophils 2.8 % (0.0-10.0); %Lymphocytes 10.3 % (21.0-51.0); %Monocytes 6.6 % (0.0-10.0); %Neutrophils 80.2 % (42.0-75.0); Hemoglobin 12.5 g/dL (14.0-18.0); Mean Corpuscular HGB CONC 32.3 g/dL (32.0-36.0); Mean Corpuscular Volume 92.9 fL (78.0-98.0); Mean Platelet Volume 6.3 fL (7.4-10.4); Platelet Count 218 thou/uL (130-400); RBC Distribution Width 13.7 % (11.5-14.5); Red Blood Cell (RBC) Count 4.15 mill/uL (4.70-6.10); White Blood Cell (WBC) Count 8.7 thou/uL (4.8-10.8)
[2022-04-08 21:04] LABS: ALT (SGPT) 10 U/L (8-55); AST (SGOT) 11 U/L (5-34); Albumin 3.3 g/dL (3.4-4.8); Alkaline Phosphatase 90 U/L (40-110); Anion Gap 21 mmol/L (10-20); BUN (Urea Nitrogen) 33 mg/dL (8.4-25.7); Bilirubin, Total 0.6 mg/dL (0.2-1.2); CK (CPK) 19 U/L (30-200); Calc. Creatinine Clearance 0 mL/min (70-130); Calcium 8.5 mg/dL (7.8-10.44); Carbon Dioxide 21 mmol/L (23-31); Chloride 98 mmol/L (98-107); Glucose 127 mg/dL (83-110); Potassium 3.8 mmol/L (3.5-5.1); Protein, Total 6.3 g/dL (5.8-8.1); Sodium 136 mmol/L (136-145)
[2022-04-08] MEDS ORDERED: Dexamethasone 4 mg/ml Vial ONE (21:40)
[2022-04-08 21:46] LABS: Bacteria/HPF 4+ HPF (None Seen); Bilirubin Negative (Negative); Blood, Urine 3+ (Negative); Clarity Turbid (Clear); Glucose, Urine (Dipstick) Normal (Negative); Ketone, Urine Trace mg/dL (Negative); Leukocyte 500 Leu/uL (Negative); Nitrite Negative (Negative); Protein, Urine (Dipstick) 300 mg/dL (Neg-Trace); RBC/HPF Greater than 50 HPF (0-3); Specific Gravity, Urine 1.016 (1.002-1.036); Squamous Epithelial None Seen HPF (0-3); Urobilinogen Normal mg/dL (Less than 2); WBC/HPF Greater than 50 HPF (0-3); Yeast-Budding 1+ HPF (None Seen)
[2022-04-08 21:58] LABS: CKMB 0.5 ng/mL (0-6.6)
[2022-04-08 22:43] LABS: SARS-CoV-2 NAA Rapid Test Not Detected (NotDetected)
[2022-04-08] MEDS ORDERED: Acetaminophen 325 MG TAB PO PRN (23:00)
[2022-04-08] MEDS ORDERED: Ondansetron ODT 4 MG TAB SL PRN (23:00)
[2022-04-08] MEDS ORDERED: Ondansetron PF 4 MG/2 ML Vial IVP PRN (23:00)
[2022-04-08] MEDS ORDERED: Acetaminophen 650 MG Suppository PR PRN (23:20)
[2022-04-08] MEDS ORDERED: Morphine 4 MG/ML VIAL SLOW IVP PRN (23:43)
[2022-04-09 02:21] LABS: #Lymphocytes 0.4 thou/uL (1.20-3.40); #Monocytes 0.1 thou/uL (0.11-0.59); %Eosinophils 0.3 % (0.0-10.0); %Lymphocytes 5.8 % (21.0-51.0); %Monocytes 1.1 % (0.0-10.0); %Neutrophils 92.9 % (42.0-75.0); Hemoglobin 11.5 g/dL (14.0-18.0); Mean Corpuscular HGB CONC 32.1 g/dL (32.0-36.0); Mean Corpuscular Volume 93.6 fL (78.0-98.0); Mean Platelet Volume 6.3 fL (7.4-10.4); Platelet Count 201 thou/uL (130-400); RBC Distribution Width 13.7 % (11.5-14.5); Red Blood Cell (RBC) Count 3.84 mill/uL (4.70-6.10); White Blood Cell (WBC) Count 7.6 thou/uL (4.8-10.8)
[2022-04-09 03:23] LABS: Anion Gap 21 mmol/L (10-20); BUN (Urea Nitrogen) 39 mg/dL (8.4-25.7); Calc. Creatinine Clearance 16 mL/min (70-130); Calcium 8.5 mg/dL (7.8-10.44); Carbon Dioxide 18 mmol/L (23-31); Chloride 98 mmol/L (98-107); Glucose 165 mg/dL (83-110); Potassium 4.3 mmol/L (3.5-5.1); Sodium 133 mmol/L (136-145)
[2022-04-09 03:32] LABS: Critical Call Chem Troponin I RESULT DECREASING; Troponin I 0.331 ng/mL (< 0.028)
[2022-04-09] MEDS: Dexamethasone 4 mg/ml Vial SLOW IVP SCH ×4 (05:41→23:45)
[2022-04-09] MEDS ORDERED: Lorazepam 2 MG/ML VIAL SLOW IVP SCH (06:45)
[2022-04-09] MEDS ORDERED: Cefepime 2 GM in Sodium Chloride 0.9% 100 ML IVPB SCH (07:00)
[2022-04-09] MEDS ORDERED: Heparin 10,000 UNITS/ 10 ML VIAL ONE (08:41)
[2022-04-09] MEDS: Famotidine/PF 20 mg/2ml Vial SLOW IVP SCH (13:36)
[2022-04-09 14:51] LABS: HBSAg Index 0.35 S/CO (0-0.99); Hep B Surf Ag Non-Reactive S/CO (NonReactive)
[2022-04-09] MEDS ORDERED: diphenhydrAMINE 25 MG CAP PO SCH (21:30)
[2022-04-10 00:14] LABS: Troponin I 0.181 ng/mL (< 0.028)
[2022-04-10] MEDS: Dexamethasone 4 mg/ml Vial SLOW IVP SCH ×4 (05:20→23:41)
[2022-04-10] MEDS: Cefepime 1 GM in Sodium Chloride 0.9% 100 ML IVPB SCH (05:31)
[2022-04-10] MEDS: FLUoxetine HCl 20 MG CAP PO SCH (07:25)
[2022-04-10] MEDS: Famotidine/PF 20 mg/2ml Vial SLOW IVP SCH (07:32)
[2022-04-10 08:16] LABS: INR-International Normal Ratio 1.1; PTT 30.3 sec (22.9-36.1); Prothrombin Time 14.3 sec (12.0-14.7)
[2022-04-10] MEDS ORDERED: Heparin 10,000 UNITS/ 10 ML VIAL ONE (10:18)
[2022-04-10] MEDS ORDERED: Sodium Bicarbonate 2.5 MEQ/5 ML VIAL ONE (13:19)
[2022-04-10] MEDS ORDERED: Fentanyl 100 MCG/2 ML VIAL ONE (13:20)
[2022-04-11] MEDS ORDERED: Sterile Water 10 ML VIAL FS SCH (00:15)
[2022-04-11] MEDS ORDERED: OLANZapine 10 MG VIAL IM SCH (00:15)
[2022-04-11 04:14] LABS: #Lymphocytes 0.5 thou/uL (1.20-3.40); #Monocytes 0.2 thou/uL (0.11-0.59); #Neutrophils 3.4 thou/uL (1.40-6.50); %Eosinophils 0.2 % (0.0-10.0); %Lymphocytes 11.2 % (21.0-51.0); %Monocytes 4.9 % (0.0-10.0); %Neutrophils 83.7 % (42.0-75.0); Hemoglobin 12.5 g/dL (14.0-18.0); Mean Corpuscular HGB CONC 32.6 g/dL (32.0-36.0); Mean Corpuscular Hemoglobin 30.3 pg (27.0-31.0); Mean Corpuscular Volume 93.2 fL (78.0-98.0); Mean Platelet Volume 6.8 fL (7.4-10.4); Platelet Count 218 thou/uL (130-400); RBC Distribution Width 13.5 % (11.5-14.5); Red Blood Cell (RBC) Count 4.13 mill/uL (4.70-6.10)
[2022-04-11 04:36] LABS: Anion Gap 19 mmol/L (10-20); BUN (Urea Nitrogen) 34 mg/dL (8.4-25.7); Calc. Creatinine Clearance 21 mL/min (70-130); Calcium 8.3 mg/dL (7.8-10.44); Carbon Dioxide 23 mmol/L (23-31); Chloride 96 mmol/L (98-107); Glucose 200 mg/dL (83-110); Potassium 4.1 mmol/L (3.5-5.1); Sodium 134 mmol/L (136-145)
[2022-04-11] MEDS: Cefepime 1 GM in Sodium Chloride 0.9% 100 ML IVPB SCH (06:13)
[2022-04-11] MEDS: Dexamethasone 4 mg/ml Vial SLOW IVP SCH ×3 (06:13→17:48)
[2022-04-11] MEDS: FLUoxetine HCl 20 MG CAP PO SCH (07:55)
[2022-04-11] MEDS ORDERED: Cefepime 1 GM in Sodium Chloride 0.9% 100 ML IVPB SCH (17:00)
[2022-04-12] MEDS: Dexamethasone 4 mg/ml Vial SLOW IVP SCH ×4 (00:16→15:51)
[2022-04-12 04:06] LABS: #Lymphocytes 0.5 thou/uL (1.20-3.40); #Monocytes 0.3 thou/uL (0.11-0.59); #Neutrophils 3.4 thou/uL (1.40-6.50); %Eosinophils 0.2 % (0.0-10.0); %Monocytes 7.1 % (0.0-10.0); %Neutrophils 81.7 % (42.0-75.0); Hemoglobin 12.2 g/dL (14.0-18.0); Mean Corpuscular HGB CONC 32.4 g/dL (32.0-36.0); Mean Corpuscular Hemoglobin 29.6 pg (27.0-31.0); Mean Corpuscular Volume 91.4 fL (78.0-98.0); Mean Platelet Volume 6.8 fL (7.4-10.4); Platelet Count 211 thou/uL (130-400); RBC Distribution Width 13.4 % (11.5-14.5); Red Blood Cell (RBC) Count 4.12 mill/uL (4.70-6.10); White Blood Cell (WBC) Count 4.1 thou/uL (4.8-10.8)
[2022-04-12 04:25] LABS: Anion Gap 20 mmol/L (10-20); BUN (Urea Nitrogen) 49 mg/dL (8.4-25.7); Calc. Creatinine Clearance 18 mL/min (70-130); Calcium 8.3 mg/dL (7.8-10.44); Carbon Dioxide 18 mmol/L (23-31); Chloride 97 mmol/L (98-107); Glucose 217 mg/dL (83-110); Potassium 4.2 mmol/L (3.5-5.1); Sodium 131 mmol/L (136-145)
[2022-04-12] MEDS: FLUoxetine HCl 20 MG CAP PO SCH (07:10)
[2022-04-12] MEDS ORDERED: Heparin 10,000 UNITS/ 10 ML VIAL ONE (09:09)
[2022-04-12] MEDS ORDERED: Sodium Bicarbonate 2.5 MEQ/5 ML VIAL ONE (12:26)
[2022-04-12] MEDS ORDERED: Midazolam HCl 2 mg/2 ml Vial ONE (12:26)
[2022-04-12] MEDS ORDERED: Fentanyl 100 MCG/2 ML VIAL ONE (12:26)
[2022-04-12] MEDS: Cefepime 1 GM in Sodium Chloride 0.9% 100 ML IVPB SCH (15:51)
[2022-04-13] MEDS: Dexamethasone 4 mg/ml Vial SLOW IVP SCH ×4 (00:22→17:18)
[2022-04-13 04:23] LABS: #Lymphocytes 0.6 thou/uL (1.20-3.40); #Monocytes 0.5 thou/uL (0.11-0.59); #Neutrophils 6.8 thou/uL (1.40-6.50); %Eosinophils 0.2 % (0.0-10.0); %Lymphocytes 7.4 % (21.0-51.0); %Monocytes 6.4 % (0.0-10.0); Hemoglobin 12.7 g/dL (14.0-18.0); Mean Corpuscular HGB CONC 33.6 g/dL (32.0-36.0); Mean Corpuscular Hemoglobin 30.7 pg (27.0-31.0); Mean Corpuscular Volume 91.6 fL (78.0-98.0); Mean Platelet Volume 7.4 fL (7.4-10.4); Platelet Count 228 thou/uL (130-400); RBC Distribution Width 13.7 % (11.5-14.5); Red Blood Cell (RBC) Count 4.13 mill/uL (4.70-6.10); White Blood Cell (WBC) Count 7.9 thou/uL (4.8-10.8)
[2022-04-13 04:35] LABS: Anion Gap 14 mmol/L (10-20); BUN (Urea Nitrogen) 37 mg/dL (8.4-25.7); Calc. Creatinine Clearance 24 mL/min (70-130); Calcium 8.2 mg/dL (7.8-10.44); Carbon Dioxide 28 mmol/L (23-31); Chloride 95 mmol/L (98-107); Glucose 228 mg/dL (83-110); Potassium 3.4 mmol/L (3.5-5.1); Sodium 134 mmol/L (136-145)
[2022-04-13] MEDS: FLUoxetine HCl 20 MG CAP PO SCH (09:05)
[2022-04-13] MEDS ORDERED: Potassium Bicarbonate/Cit Ac 20 MEQ TAB PO SCH (10:45)
[2022-04-13] MEDS: Cefepime 1 GM in Sodium Chloride 0.9% 100 ML IVPB SCH (17:18)
[2022-04-14] MEDS: Dexamethasone 4 mg/ml Vial SLOW IVP SCH ×5 (00:19→23:37)
[2022-04-14 03:37] LABS: #Lymphocytes 0.5 thou/uL (1.20-3.40); #Monocytes 0.4 thou/uL (0.11-0.59); #Neutrophils 6.8 thou/uL (1.40-6.50); %Lymphocytes 6.9 % (21.0-51.0); %Monocytes 4.7 % (0.0-10.0); %Neutrophils 88.4 % (42.0-75.0); Hemoglobin 11.7 g/dL (14.0-18.0); Mean Corpuscular HGB CONC 33.3 g/dL (32.0-36.0); Mean Corpuscular Hemoglobin 30.5 pg (27.0-31.0); Mean Corpuscular Volume 91.6 fL (78.0-98.0); Platelet Count 184 thou/uL (130-400); RBC Distribution Width 13.2 % (11.5-14.5); Red Blood Cell (RBC) Count 3.83 mill/uL (4.70-6.10); White Blood Cell (WBC) Count 7.7 thou/uL (4.8-10.8)
[2022-04-14 03:55] LABS: Anion Gap 16 mmol/L (10-20); BUN (Urea Nitrogen) 55 mg/dL (8.4-25.7); Calc. Creatinine Clearance 20 mL/min (70-130); Calcium 7.9 mg/dL (7.8-10.44); Carbon Dioxide 24 mmol/L (23-31); Chloride 97 mmol/L (98-107); Glucose 326 mg/dL (83-110); Potassium 4.3 mmol/L (3.5-5.1); Sodium 133 mmol/L (136-145)
[2022-04-14] MEDS: FLUoxetine HCl 20 MG CAP PO SCH (08:45)
[2022-04-14] MEDS ORDERED: Heparin 10,000 UNITS/ 10 ML VIAL ONE (08:47)
[2022-04-14] MEDS ORDERED: Dextrose 50% Abboject 50 ML SYRINGE SLOW IVP PRN (10:35)
[2022-04-14] MEDS ORDERED: Dextrose 5% in Water 1,000 ML IV PRN (10:35)
[2022-04-14] MEDS: Cefepime 1 GM in Sodium Chloride 0.9% 100 ML IVPB SCH (16:53)
[2022-04-14] MEDS: HumaLOG 300 UNITS/3 ML VIAL SC PRN (17:24)
[2022-04-15] MEDS: Dexamethasone 4 mg/ml Vial SLOW IVP SCH ×3 (06:10→17:20)
[2022-04-15] MEDS: HumaLOG 300 UNITS/3 ML VIAL SC PRN ×4 (06:11→21:22)
[2022-04-15] MEDS: hydrALAZINE 20 MG/ML VIAL SLOW IVP PRN (06:15)
[2022-04-15 06:47] LABS: #Lymphocytes 0.9 thou/uL (1.20-3.40); #Monocytes 0.6 thou/uL (0.11-0.59); #Neutrophils 7.9 thou/uL (1.40-6.50); %Basophils 0.3 % (0.0-1.0); %Eosinophils 0.1 % (0.0-10.0); %Lymphocytes 9.3 % (21.0-51.0); %Monocytes 6.1 % (0.0-10.0); %Neutrophils 84.3 % (42.0-75.0); Hemoglobin 12.7 g/dL (14.0-18.0); Mean Corpuscular HGB CONC 32.5 g/dL (32.0-36.0); Mean Corpuscular Hemoglobin 30.2 pg (27.0-31.0); Mean Corpuscular Volume 92.8 fL (78.0-98.0); Mean Platelet Volume 7.4 fL (7.4-10.4); Platelet Count 186 thou/uL (130-400); RBC Distribution Width 13.3 % (11.5-14.5); Red Blood Cell (RBC) Count 4.21 mill/uL (4.70-6.10); White Blood Cell (WBC) Count 9.4 thou/uL (4.8-10.8)
[2022-04-15 07:16] LABS: Anion Gap 16 mmol/L (10-20); BUN (Urea Nitrogen) 32 mg/dL (8.4-25.7); Calc. Creatinine Clearance 31 mL/min (70-130); Carbon Dioxide 27 mmol/L (23-31); Chloride 96 mmol/L (98-107); Glucose 260 mg/dL (83-110); Potassium 3.8 mmol/L (3.5-5.1); Sodium 135 mmol/L (136-145)
[2022-04-15] MEDS: FLUoxetine HCl 20 MG CAP PO SCH (07:55)
[2022-04-15] MEDS ORDERED: Ketorolac Tromethamine 30 MG/ML VIAL IVP SCH (13:15)
[2022-04-15 16:27] LABS: SARS-CoV-2 PCR by NAA Not Detected (NotDetected)
[2022-04-15] MEDS: Cefepime 1 GM in Sodium Chloride 0.9% 100 ML IVPB SCH (17:20)
[2022-04-16] MEDS: Dexamethasone 4 mg/ml Vial SLOW IVP SCH ×4 (00:02→16:54)
[2022-04-16] MEDS: hydrALAZINE 20 MG/ML VIAL SLOW IVP PRN (00:22)
[2022-04-16] MEDS: HumaLOG 300 UNITS/3 ML VIAL SC PRN ×3 (05:18→16:54)
[2022-04-16] MEDS: FLUoxetine HCl 20 MG CAP PO SCH (08:24)
[2022-04-16 12:49] VITALS: BMI 27.8
[2022-04-16 15:50] LABS: Anion Gap 18 mmol/L (10-20); BUN (Urea Nitrogen) 65 mg/dL (8.4-25.7); Calc. Creatinine Clearance 21 mL/min (70-130); Calcium 8.1 mg/dL (7.8-10.44); Carbon Dioxide 20 mmol/L (23-31); Chloride 97 mmol/L (98-107); Glucose 255 mg/dL (83-110); Potassium 4.4 mmol/L (3.5-5.1); Sodium 131 mmol/L (136-145)
[2022-04-16] MEDS: Cefepime 1 GM in Sodium Chloride 0.9% 100 ML IVPB SCH (16:54)
[2022-04-16] MEDS: Heparin 5,000 UNITS/ML VIAL SC SCH (20:00)
[2022-04-17] MEDS: Dexamethasone 4 mg/ml Vial SLOW IVP SCH ×4 (00:04→17:39)
[2022-04-17] MEDS: hydrALAZINE 20 MG/ML VIAL SLOW IVP PRN ×2 (00:04→20:29)
[2022-04-17] MEDS: HumaLOG 300 UNITS/3 ML VIAL SC PRN ×3 (05:33→17:49)
[2022-04-17] MEDS ORDERED: Heparin 10,000 UNITS/ 10 ML VIAL ONE (08:38)
[2022-04-17] MEDS: Heparin 5,000 UNITS/ML VIAL SC SCH ×2 (08:53→20:19)
[2022-04-17] MEDS: FLUoxetine HCl 20 MG CAP PO SCH (08:53)
[2022-04-17] MEDS: Cefepime 1 GM in Sodium Chloride 0.9% 100 ML IVPB SCH (17:39)
[2022-04-17] MEDS ORDERED: Lidocaine 1% w/Epinephrine 1:100K 20 ML VIAL FS SCH (21:30)
[2022-04-18] MEDS: Dexamethasone 4 mg/ml Vial SLOW IVP SCH ×3 (00:16→11:54)
[2022-04-18] MEDS: HumaLOG 300 UNITS/3 ML VIAL SC PRN (05:06)
[2022-04-18] MEDS: Heparin 5,000 UNITS/ML VIAL SC SCH (07:54)
[2022-04-18] MEDS: FLUoxetine HCl 20 MG CAP PO SCH (07:55)
[2022-04-18 08:04] VITALS: BP 187/69; TEMP 97.6
== END 2022-04-18 13:16 | disposition hospice, home (50) | DRG 54 ==
LOC: ERS 20:09 → IMCU/EMU 22:41 → T4-A 04-14 13:12
PROVIDERS: ADMIT Internal Medicine; ATTEND Internal Medicine
PROC: 5A1D70Z Performance of Urinary Filtration, Intermittent, Less than 6 Hours Per Day (ICD-10-PCS; principal; 2022-04-10)
DX: C79.31 Secondary malignant neoplasm of brain (principal); N18.6 End stage renal disease; G93.6 Cerebral edema; C79.89 Secondary malignant neoplasm of other specified sites; C34.11 Malignant neoplasm of upper lobe, right bronchus or lung; I12.0 Hypertensive chronic kidney disease with stage 5 chronic kidney disease or end stage renal disease; N39.0 Urinary tract infection, site not specified; N17.9 Acute kidney failure, unspecified; E87.1 Hypo-osmolality and hyponatremia; E87.2 Acidosis; G93.40 Encephalopathy, unspecified; C78.7 Secondary malignant neoplasm of liver and intrahepatic bile duct; Z20.822 Contact with and (suspected) exposure to COVID-19; Z66 Do not resuscitate; Z51.5 Encounter for palliative care; E11.22 Type 2 diabetes mellitus with diabetic chronic kidney disease; I25.10 Atherosclerotic heart disease of native coronary artery without angina pectoris; E78.5 Hyperlipidemia, unspecified; F41.9 Anxiety disorder, unspecified; F32.A Depression, unspecified; G47.33 Obstructive sleep apnea (adult) (pediatric); F03.90 Unspecified dementia, unspecified severity, without behavioral disturbance, psychotic disturbance, mood disturbance, and anxiety; D63.1 Anemia in chronic kidney disease; E11.59 Type 2 diabetes mellitus with other circulatory complications; E66.9 Obesity, unspecified; Z99.2 Dependence on renal dialysis; Z88.0 Allergy status to penicillin; Z90.49 Acquired absence of other specified parts of digestive tract; Z98.890 Other specified postprocedural states; Z87.891 Personal history of nicotine dependence; Z79.899 Other long term (current) drug therapy; Z79.84 Long term (current) use of oral hypoglycemic drugs; Z79.82 Long term (current) use of aspirin; Z95.1 Presence of aortocoronary bypass graft; Z68.27 Body mass index [BMI] 27.0-27.9, adult; Z53.8 Procedure and treatment not carried out for other reasons; E11.65 Type 2 diabetes mellitus with hyperglycemia
CPT/HCPCS: 36415; 36416; 70450; 70553; 71045; 71260; 74177; 76380; 77012; 80048; 80053; 81003; 81015; 82550; 82553; 83605; 83880; 84484; 85025; 85610; 85730; 86850; 86900; 86901; 87340; 90935; 93005; 94760; 96374; G0257; J0360; J0692; J1100; J1644; J1815; J1885; J2250; J2358; J3010; J3490; Q9967; S0028; U0002; U0003; U0005